=== PATIENT | female | born 1985 | race Caucasian/White ===

== ENCOUNTER 2025-02-05 19:45 | Emergency (ER) | payer MEDICAID, SELFPAY ==
[2025-02-05 19:45] VITALS: BP 144/91; PULSE 68; RESP 15; TEMP 36.1; O2SAT 99; BMI 35.2
--- NOTE | 2025-02-05 19:54 | EDS_ITS ---
HPI History of Present Illness Chief Complaint: Lower Extremity Injury PFSH PFSH Medical History no medical history Home Medications ?Medication ?Instructions ?Recorded ?Last Taken ?Type oxycodone-acetaminophen 5 mg-325 1 - 2 tab PO Q4H PRN PRN Pain #20 04/27/14 Unknown Rx mg tablet tabs tramadol 50 mg tablet 50 mg PO Q6H PRN PRN Pain Unknown History hydrocodone-acetaminophen 5-325mg 1 - 2 tab PO Q4H PRN PRN Pain ##12 10/18/15 Unknown Rx 5mg-325mg Allergy/AdvReac Type Severity Reaction Status Date / Time No Known Allergies Allergy Verified 02/05/25 19:45 Family History no significant family his Surgical History no surgical history Social History Smoking Status: Former smoker EXAM Physical Exam Const Vital Signs: 02/05/25 19:45 Temperature 97 F L Temperature Source Temporal Pulse Rate 68 Respiratory Rate 15 Blood Pressure 144/91 H Blood Pressure Mean 108 Pulse Ox 99 Oxygen Delivery Method Room Air [facility] [place] Narr[place] Medical decision making narrative: HISTORY OF PRESENT ILLNESS: Chief complaint: Left foot injury 39-year-old female presents after left foot pain after dropping a standstill cup of water on her left foot REVIEW OF SYSTEMS: Pertinent positives: Left foot pain Pertinent negatives: Loss of sensation PHYSICAL EXAM: Nursing triage notes reviewed, Vital signs reviewed Constitutional: please see mdm Extremities: No edema, compartments are soft Neuro: Intact sensation L1-S1 dermatomal distributions. Intact 5/5 strength in hip flexion (T12-L3). Knee extension (L2-L4). Ankle dorsiflexion (L4-L5). Ankle plantar flexion (S1). Great toe extension (L5). 2+ patellar and Achilles DTRs. Skin: redness over the base of the first metatarsal MEDICAL DECISION MAKING: Chief Complaint: please see HPI MDM Narrative: The patient was initially hemodynamically stable, afebrile and nontoxic- appearing. Exam with TTP over the base of the first metatarsal I considered the following differential diagnosis: Foot contusion, fracture dislocation I obtained an x-ray to further determine if the patient was suffering from a life-threatening etiology. Gave ice for initial therapy ALL IMAGES (IF OBTAINED) HAVE BEEN PERSONALLY REVIEWED AND INTERPRETED BY MYSELF. X-ray was read and reviewed personally myself show no evidence of obvious bony injury. The patient likely suffered from a contusion. The patient and/or family, caregivers express understanding. The patient and/or family, caregivers agrees with the plan. Shared decision making: I will have a discussion with the patient and or visitors regarding risk/benefits of further testing or admission. They will be made aware of of the risk/benefits inherent in this decision they will be given the opportunity to voice understanding. Total critical care time today provided was at least 0 minutes. This excludes separately billable procedures. Critical care time (if documented) is secondary to the patient having high probability of clinically significant/life threatening deterioration in the patient's condition which required my urgent intervention. Impression: 1. Acute left foot pain 2. Foot contusion Dispo: Discharge home This note was generated with [employer] dictation software. It may contain incorrect words, spelling, and punctuation that were not noted in review of the chart prior to signing. Discharge Plan Triage Chief Complaint: Lower Extremity Injury ED Provider: Buddy Diop Dx/Rx/DC Orders Prescriptions: No Action tramadol 50 MG tablet 50 mg PO Q6H PRN PRN (Reason: Pain) Patient Comments: TAKE 1 TABLET BY MOUTH EVERY 6 HOURS NEEDED oxycodone-acetaminophen 1 TABLET tablet 1 - 2 tab PO Q4H PRN PRN (Reason: Pain) Qty: 20 0RF hydrocodone-acetaminophen 1 TABLET tablet 1 - 2 tab PO Q4H PRN PRN (Reason: Pain) Qty: 12 0RF Primary Care Provider: Kimi Wilson Referrals: Kimi Wilson MD [Primary Care Provider] - Print Language: Taiwanese
--- OUTSIDE RECORDS SUMMARY | 2025-02-05 20:08 | XMS RPT_ITS | CCD ---
Author Organization [facility] Team Providers Care Welfare Director Name Role Phone KAPRALY, ISAURA E Unavailable Unavailable KAPRALY, ISAURA E Unavailable Unavailable KAPRALY, ISAURA E Unavailable Unavailable KAPRALY, ISAURA E Unavailable Unavailable LISSETTE OROZCO Unavailable Unavailable KAPRALY, ISAURA E Unavailable Unavailable KAPRALY, ISAURA E Unavailable Unavailable HAZEY, ARNALDO W Unavailable Unavailable KAPRALY, ISAURA E Unavailable Unavailable HAZEY, ARNALDO W Unavailable Unavailable HAZEY, ARNALDO W Unavailable Unavailable KAPRALY, ISAURA E Unavailable Unavailable KAPRALY, ISAURA E Unavailable Unavailable KAPRALY, ISAURA E Unavailable Unavailable JAVAN NICK Unavailable Unavailable HAZEY, ARNALDO W Unavailable Unavailable Unavailable Primary Care Provider Unavailabl e Unavailable Primary Care Provider Unavailabl e Unavailable Primary Care Provider Unavailabl e Unavailable Primary Care Provider Unavailabl e Camryn PELAEZ Attending Unavailable Camryn PELAEZ Referring Unavailable HAYDE BAZAN Attending Unavailable HAYDE BAZAN Referring Unavailable Medications Current Medications Medication Drug Class(es) Dates Sig (Normalized) Sig (Original) [id number] 200 actuat albuterol 0.09 mg/actuat metered dose inhaler (8 sources) beta2-Adrenergic Agonist Start: 02-22-2022 take 2 puff(s) by inhalation every four hours as needed albuterol HFA (PROAIR HFA) 90 mcg/actuation inhaler Indications: SOB (shortness of breath) Inhale 2 Puffs as instructed every 4 hours as needed. 18 g 02/22/2022 Active Comment on above: Inhale 2 Puffs as in structed every 4 hours as needed. amoxicillin 875 mg oral tablet (1 source) Penicillin-class Antibacterial Start: 08-17-2023 End: 08-24-2023 take 1 tablet by mouth twice daily amoxicillin (AMOXIL) 875 mg tablet Take 1 tablet by mouth two times a day for 7 days. 14 tablet 0 08/17/2023 08/24/2023 Active Comment on above: Take 1 tablet by darron th two times a day for 7 days. amoxicillin 875 mg / clavulanate 125 mg oral tablet (7 sources) Penicillin-class Antibacterial Start: 06-15-2024 End: 06-22-2024 take 1 tablet by mouth twice daily amoxicillin-clavu lanate (Augmentin) 875-125 MG tablet Take 1 tablet by mouth 2 times daily for 7 days. 14 tablet 06/15/2024 06/22/2024 Active Start: 06-15-2024 End: 06-15-2024 take 1 tablet by mouth once 1 tablet (875 mg), Oral, O nce, On Tue06/15/24 at 1335, For 1 dose, Suspected Indication (Select all that apply): Intra-Abdominal Infection Start: 11-16-2023 End: 11-21-2023 take 1 tablet by mouth twice daily amoxicillin-clavulanate potassium (AUGMENTIN) 875-125 mg per tablet Take 1 tablet by mouth two times a day for 5 days. 10 tablet 0 11/16/2023 11/21/2023 Active benzonatate 100 mg oral capsule (1 source) Non-narcotic Antitussive Start: 10-18-2024 End: 10-25-2024 take 1 capsule by mouth three times daily as needed for cough benzonatate (TESSALON PERLE) 100 mg capsule Indications: Acute cough Take 1 capsule by mouth three times a day as needed for cough for up to 7 days. 21 capsule 10/18/2024 10/25/2024 Active ciprofloxacin 3 mg/ml ophthalmic solution (8 sources) Quinolone Antimicrobial Start: 08-24-2022 take 1 drop(s) into the eye(s) four times daily ciprofloxacin HCl (CILOXAN) 0.3 % ophthalmic solution Indications: Bacterial conjunctivitis Use 1 Drop in the left eye four times daily. 5 mL 08/24/2022 Active Start: 08-24-2022 End: 08-24-2022 take 1 drop(s) into the eye(s) four times daily ciprofloxacin HCl (CILOXAN) 0.3 % ophthalmic solution Indications: Bacterial conjunctivitis Use 1 Drop in the left eye four times daily. 5 mL 0 08/24/2022 Active Comment on above: Use 1 Drop in the le ft eye four times daily. mupirocin 0.02 mg/mg topical ointment (1 source) RNA Synthetase Inhibitor Antibacterial Start: 11-16-2023 End: 11-21-2023 mupirocin (BACTROBAN) 2 % ointment Apply to affected area three times a day for 5 days. 30 g 0 11/16/2023 11/21/2023 Active ofloxacin 3 mg/ml otic solution (4 sources) Quinolone Antimicrobial Start: 10-07-2023 ofloxacin (FLOXIN) 0.3 % otic solution Indications: Acute otitis externa of both ears, unspecified type Use 5 Drops in both ears once daily. 10 mL 10/07/2023 Active Comment on above: Use 5 Drops in both ears once daily. predniSONE 10 mg oral tablet (2 sources) Start: 10-18-2024 End: 10-27-2024 predniSONE (DELTASONE) 10 mg tablet Indications: Acute cough Take 4 tabs daily for 3 days, then 2 tabs daily for 3 days, then 1 tab daily for 3 days with food. 21 tablet 10/18/2024 10/27/2024 Active Start: 02-22-2022 End: 02-27-2022 take 5 tablets by mouth once daily, then take 4 tablets by mouth once daily, then take 3 tablets by mouth once daily, then take 2 tablets by mouth once daily, then take 1 tablet by mouth once daily predniSONE (DELTASONE) 10 mg tablet Indications: SOB (shortness of breath) Take 5 tablets by mouth once daily for 1 day, THEN 4 tablets once daily for 1 day, THEN 3 tablets once daily for 1 day, THEN 2 tablets once daily for 1 day, THEN 1 tablet once daily for 1 day. 15 tablet 0 02/22/2022 02/27/2022 Active Comment on above: Take 5 tablets by [facility] once daily for 1 day, THEN 4 tablets once daily for 1 day, THEN 3 tablets once daily for 1 day, THEN 2 tablets once daily for 1 day, THEN 1 tablet once daily for 1 day. Completed/Discontinued Medications Medication Drug Class(es) Dates Sig (Normalized) Sig (Original) 1 ml ketorolac tromethamine 15 mg/ml cartridge (2 sources) Nonsteroidal Anti-inflammatory Drug, Cyclooxygenase Inhibitor Start: 06-15-2024 End: 06-15-2024 15 mg, IntraVENous, Once, On Tue06/15/24 at 1300, For 1 dose Problems Active Problems Problem Classification Problem Date Documented Date Episodic/Chronic Diverticulosis and diverticulitis (4 sources) Diverticulitis of sigmoid colon; Translations: [Diverticulitis of large intestine without perforation or abscess without bleeding] Onset: 06-15-2024 06-15-2024 Chronic Inflammation; infection of eye (except that caused by tuberculosis or sexually transmitteddisease) (1 source) Bacterial conjunctivitis; Translations: [Unspecified conjunctivitis] Episodic Other lower respiratory disease (2 sources) Cough; Translations: [Acute cough] 10-18-2024 Episodic Other nutritional; endocrine; and metabolic disorders (8 sources) Obesity; Translations: [Obesity, unspecified] Onset: 11-05-2014 11-05-2014 Chronic Other upper respiratory infections (4 sources) Acute upper respiratory infection; Translations: [Acute upper respiratory infection, unspecified] Onset: 10-18-2024 08-17-2023 Episodic Otitis media and related conditions (1 source) Acute right otitis media; Translations: [Otitis media, unspecified, right ear] 08-17-2023 Episodic Skin and subcutaneous tissue infections (1 source) Paronychia of finger of right hand; Translations: [Cellulitis of right finger] 11-16-2023 Episodic Substance-related disorders (8 sources) Tobacco user; Translations: [Nicotine dependence, unspecified, uncomplicated] Onset: 09-06-2011 09-06-2011 Chronic Unclassified (2 sources) CALCU GB W/O CHOLECYST W/O OBST / K80.20(ICD-10) Onset: 05-30-2017 Unclassified (1 source) CALCU GB W/CHRON CHOLECYST W/O OBST / K80.10(ICD-10) Onset: 06-02-2017 Unclassified (2 sources) RIGHT UPPER QUADRANT PAIN / R10.11(ICD-10) Onset: 05-06-2017 Unclassified (1 source) Acute cough; Translations: [Acute cough] Onset: 10-18-2024 Past or Other Problems Problem Classification Problem Date Documented Date Episodic/Chronic Abdominal pain (1 source) Right upper quadrant pain; Translations: [RIGHT UPPER QUADRANT PAIN] Onset: 05-05-2017 Episodic Cardiac dysrhythmias (8 sources) Palpitations; Translations: [Palpitations] Onset: 09-29-2011 09-29-2011 Episodic Other ear and sense organ disorders (1 source) Acute otitis externa of bilateral ears; Translations: [Unspecified acute noninfective otitis externa, bilateral] 10-07-2023 Episodic Residual codes; unclassified (8 sources) FH: Cardiovascular disease; Translations: [Family history of ischemic heart disease and other diseases of the circulatory system] Onset: 09-06-2011 09-06-2011 Episodic Unclassified (1 source) CALCU GB W/O CHOLECYST W/O OBST; Translations: [CALCU GB W/O CHOLECYST W/O OBST] Onset: 05-30-2017 Results Test Name Value Interpretation Reference Range Facility [facility] 10-18-2024 CN Office Visit (UCWSTR ) HUSSEIN LEE ([id number]) 1985 F Date Time Provider Department 10/18/24 3:45 PM HAYDE BAZAN [facility] During your visit today, we recorded the following information about you: Temperature Pulse Respiration Blood pressure 98.2 degrees 70/minute 18/minute 148/89 Weight 78.8 kg Hayde Bazan, VALERIA.[facility] 10/18/2024 4:37 PM Signed [facility] Subjective Hussein Lee is a 39 year old female. Patient presents with: Cough: Chest congestion, R side chest discomfort with cough, bilateral ear pain x3 days Patient came in with complaints of 3 days worth of congestion cough. Patient says she does have some shortness of breath when walking. Denies any chest pain or other symptoms. The history is provided by the patient. No linen room attendant was used. Cough Associated symptoms include shortness of breath. Review of Systems Constitutional: Negative. HENT: Positive for congestion. Respiratory: Positive for cough and shortness of breath. Objective BP 148/89 Pulse 70 Temp 36.8 ?C (98.2 ?F) Resp 18 Wt 78.8 kg (173 lb 11.6 oz) LMP 03/04/2020 SpO2 100% BMI 35.09 kg/m? Physical Exam Constitutional: Appearance: Normal appearance. HENT: Right Ear: Tympanic membrane, ear canal and external ear normal. Left Ear: Tympanic membrane, ear canal and external ear normal. Mouth/Throat: Mouth: Mucous membranes are moist. Pharynx: Oropharynx is clear. Eyes: Pupils: Pupils are equal, round, and reactive to light. Cardiovascular: Rate and Rhythm: Normal rate and regular rhythm. Heart sounds: Normal heart sounds. Pulmonary: Effort: Pulmonary effort is normal. Breath sounds: Normal breath sounds. Neurological: Mental Status: She is alert. PAST MEDICAL HISTORY Diagnosis Date Childhood asthma (HCC) Noted history of childhood asthma History of smoking PAST SURGICAL HISTORY Procedure Laterality Date TONSILLECTOMY PRIMARY/SECONDARY age 7 years TYMPANOSTOMY LOCAL/TOPICAL ANESTHESIA age 7 ALLERGIES Patient has no known allergies. MEDICATIONS ofloxacin (FLOXIN) 0.3 % otic solution Use 5 Drops in both ears once daily. (Patient not taking: Reported on 11/16/2023) ciprofloxacin HCl (CILOXAN) 0.3 % ophthalmic solution Use 1 Drop in the left eye four times daily. (Patient not taking: Reported on 08/17/2023) albuterol HFA (PROAIR HFA) 90 mcg/actuation inhaler Inhale 2 Puffs as instructed every 4 hours as needed. (Patient not taking: Reported on 08/17/2023) FAMILY HISTORY Problem Relation Age of Onset Cancer Mother from cervical cancer with mets liver? Heart Mother Heart Paternal Grandfather Cancer Maternal Grandmother Asthma Brother Social History Tobacco Use Smoking status: Former Types: Cigarettes Smokeless tobacco: Never Tobacco comments: smokes 1 pack a week; has set a quite date for January 29 2012 (noted smokes) Vaping Use Vaping status: Never Used Substance Use Topics Alcohol use: Yes Comment: socially {ASSESSMENT/PLAN: 1. Acute cough - ICD9: 786.2, ICD10: R05.1 (primary diagnosis) - XR CHEST 2V FRONTAL/LAT - neg - PREDNISONE 10 MG TABLET - BENZONATATE 100 MG CAPSULE 2. URI, acute - ICD9: 465.9, ICD10: J06.9 - Discussed viral etiology and rationale for treatment. - Symptomatic treatment with prn analgesia - Supportive care with fluids and rest Hayde Bazan APRN.[employer] History and Record Review External record(s) reviewed: no prior records. Disposition The patient was discharged. Procedures Allergies As of Date: 10/18/2024 (No Known Allergies) Date Reviewed: 10/18/2024 Reviewed by: Milagro Turner MA - Fully Assessed Reason for Visit: Cough [28] Cmt: Chest congestion, R side chest discomfort with cough, bilateral ear pain x3 days Primary Visit Diagnosis:Acute cough [R05.1] Other Visit Diagnosis:URI, acute [J06.9] Order(s):XR CHEST 2V FRONTAL/LAT [[id number]] Order #: [id number] FUTURE predniSONE (DELTASONE) 10 mg tabletTake 4 tabs daily for 3 days, then 2 tabs daily for 3 days, then 1 tab daily for 3 days with food.Disp: 21 tabletRfl: 0 benzonatate (TESSALON PERLE) 100 mg capsuleTake 1 capsule by mouth three times a day as needed for cough for up to 7 days.Disp: 21 capsuleRfl: 0 Prescriptions as of 10/18/2024 - predniSONE (DELTASONE) 10 mg tablet Take 4 tabs daily for 3 days, then 2 tabs daily for 3 days, then 1 tab daily for 3 days with food. - benzonatate (TESSALON PERLE) 100 mg capsule Take 1 capsule by mouth three times a day as needed for cough for up to 7 days. - ofloxacin (FLOXIN) 0.3 % otic solution Use 5 Drops in both ears once daily. - ciprofloxacin HCl (CILOXAN) 0.3 % ophthalmic solution Use 1 Drop in the left eye four times daily. - albuterol HFA (PROAIR HFA) 90 mcg/actuation inhaler Inhale 2 Puffs as instructed every 4 hours as neede (more content not included)... Normal [facility] XR CHEST 2V FRONTAL/LATon XR CHEST 2V FRONTAL/LAT * * *Final Report* * * DATE OF EXAM: Oct 18 2024 4:22PM WOX [id number] - XR CHEST 2V FRONTAL/LAT / PROCEDURE REASON: Acute cough * * * * Physician Interpretation * * * * EXAMINATION: CHEST RADIOGRAPH (2 VIEW FRONTAL and LATERAL) CLINICAL HISTORY: Acute cough MQ: XC2_6 EXAM DATE/TIME: 10/18/2024 4:22 PM COMPARISON: No relevant prior studies available. RESULT: Lines, tubes, and devices: None. Lungs and pleura: No consolidation. No lung mass. No pleural effusion. No pneumothorax. Cardiomediastinal silhouette: Normal cardiomediastinal silhouette. Bones and soft tissues: Unremarkable. IMPRESSION: No acute radiographic abnormality. [employer]: [facility] Transcribe Date/Time: Oct 18 2024 4:24P Dictated by : GERMAINE KAY MD This examination was interpreted and the report reviewed and electronically signed by: GERMAINE KAY MD on Oct 18 2024 4:25PM EST [id number] Normal [facility] XR Chest PA and Lateralon IMPRESSION: No acute radiographic abnormality. [employer]: [facility] Transcribe Date/Time: Oct 18 2024 4:24P Dictated by : GERMAINE KAY MD This examination was interpreted and the report reviewed and electronically signed by: GERMAINE KAY MD on Oct 18 2024 4:25PM EST DIVISION OF RADIOLOGY * * *Final Report* * * DATE OF EXAM: Oct 18 2024 4:22PM WOX [id number] - XR CHEST 2V FRONTAL/LAT / PROCEDURE REASON: Acute cough * * * * Physician Interpretation * * * * EXAMINATION: CHEST RADIOGRAPH (2 VIEW FRONTAL & LATERAL) CLINICAL HISTORY: Acute cough MQ: XC2_6 EXAM DATE/TIME: 10/18/2024 4:22 PM COMPARISON: No relevant prior studies available. RESULT: Lines, tubes, and devices: None. Lungs and pleura: No consolidation. No lung mass. No pleural effusion. No pneumothorax. Cardiomediastinal silhouette: Normal cardiomediastinal silhouette. Bones and soft tissues: Unremarkable. DIVISION OF RADIOLOGY Provider, [facility] - 10/18/2024 * * *Final Report* * * DATE OF EXAM: Oct 18 2024 4:22PM WOX 5291 - XR CHEST 2V FRONTAL/LAT / PROCEDURE REASON: Acute cough * * * * Physician Interpretation * * * * EXAMINATION: CHEST RADIOGRAPH (2 VIEW FRONTAL & LATERAL) CLINICAL HISTORY: Acute cough MQ: XC2_6 EXAM DATE/TIME: 10/18/2024 4:22 PM COMPARISON: No relevant prior studies available. RESULT: Lines, tubes, and devices: None. Lungs and pleura: No consolidation. No lung mass. No pleural effusion. No pneumothorax. Cardiomediastinal silhouette: Normal cardiomediastinal silhouette. Bones and soft tissues: Unremarkable. IMPRESSION IMPRESSION: No acute radiographic abnormality. [employer]: [facility] Transcribe Date/Time: Oct 18 2024 4:24P Dictated by : GERMAINE KAY MD This examination was interpreted and the report reviewed and electronically signed by: GERMAINE KAY MD on Oct 18 2024 4:25PM EST [facility] Radiology Study observation (narrative) [facility] XR Chest PA and LateralOrder ed By: [facility] Provider on 10-18-2024 [facility] CBC W Auto Differential pane l (Bld)on 06-15-2024 Basophils (Bld) [#/Vol] 0 10*3/uL 0.0 - 0.2 10*3/uL [facility] Basophils/100 WBC (Bld) 0.2 % 0.0 - 2.0 % [facility] Eosinophils (Bld) [#/Vol] 0.1 10*3/uL 0.0 - 0.5 10*3/uL [facility] Eosinophils/100 WBC (Bld) 0.5 % 0.0 - 6.0 % [facility] Erythrocyte distribution width (RBC) [Ratio] 13.2 % 11.5 - 15.0 % [facility] Hematocrit (Bld) [Volume fraction] 36.7 % 35.0 - 47.0 % [facility] Hemoglobin (Bld) [Mass/Vol] 13.5 g/dL 11.7 - 16.0 g/dL [facility] Immature granulocytes (Bld) [#/Vol] 0.1 10*3/uL High NINF - 0.1 10*3/uL [facility] Immature granulocytes/100 WBC (Bld) 0.5 % 0.0 - 2.0 % [facility] Interpretation and review of laboratory results Abnormal [facility] Lymphocytes (Bld) [#/Vol] 2.4 10*3/uL 1.0 - 4.3 10*3/uL [facility] Lymphocytes/100 WBC (Bld) 14.3 % Low 15.0 - 45.0 % [facility] MCH (RBC) [Entitic mass] 31.8 pg 26.0 - 34.0 pg [facility] MCHC (RBC) [Mass/Vol] 36.8 % High 30.5 - 36.0 % [facility] MCV (RBC) [Entitic vol] 86.6 fL 77.0 - 99.0 fL [facility] Monocytes (Bld) [#/Vol] 1.1 10*3/uL High 0.0 - 0.9 10*3/uL [facility] Monocytes/100 WBC (Bld) 6.2 % 5.0 - 13.0 % [facility] Neutrophils (Bld) [#/Vol] 13.3 10*3/uL High 1.8 - 7.5 10*3/uL [facility] Neutrophils/100 WBC (Bld) 78.3 % 38.0 - 82.0 % [facility] Nucleated RBC/100 WBC (Bld) [Ratio] 0 % [facility] Platelet mean volume (Bld) [Entitic vol] 10.4 fL 9.0 - 12.7 fL [facility] Comment on above: MPV is a calculated measurement using platelet volume ratio Platelets (Bld) [#/Vol] 301 10*3/uL 140 - 440 10*3/uL [facility] RBC (Bld) [#/Vol] 4.24 10*6/uL 3.80 - 5.2 0 10*6/uL [facility] WBC (Bld) [#/Vol] 17 10*3/uL High 3.6 - 10.7 10*3/uL [facility] CBC WITH AUTO DIFFERENTIALon 06-15-2024 Basophils (Bld) [#/Vol] 0.0 10*3/uL Normal 0.0-0.2 [facility] Comment on above: Performed By: #### L [id number] #### Process Engineer: GERRI ANAND ([id number]) [facility] [address] [place] [address] Basophils/100 WBC (Bld) 0.2 % Normal 0.0-2.0 [facility] Comment on above: Performed By: #### L [id number] #### Process Engineer: GERRI ANAND ([id number]) [facility]) [address] [place] [address] Eosinophils (Bld) [#/Vol] 0.1 10*3/uL Normal 0.0-0.5 [facility] Comment on above: Performed By: #### L [id number] #### Process Engineer: GERRI ANAND ([id number]) [facility] [address] [place] [address] Eosinophils/100 WBC (Bld) 0.5 % Normal 0.0-6.0 [facility] Comment on above: Performed By: #### L [id number] #### Process Engineer: GERRI ANAND ([id number]) [facility] [address] [place] [address] Erythrocyte distribution width (RBC) [Ratio] 13.2 % Normal 11.5-15.0 [facility] Comment on above: Performed By: #### L [id number] #### Process Engineer: GERRI ANAND ([id number]) [facility] [address] [place] [address] Hematocrit (Bld) [Volume fraction] 36.7 % Normal 35.0-47.0 [facility] Comment on above: Performed By: #### L [id number] #### Process Engineer: GERRI ANAND ([id number]) [facility] [address] [place] [address] Hemoglobin (Bld) [Mass/Vol] 13.5 g/dL Normal 11.7-16.0 [facility] Comment on above: Performed By: #### L [id number] #### Process Engineer: GERRI ANAND ([id number]) [facility] [address] IMMATURE GRANS % 0.5 % Normal 0.0-2.0 [facility] Comment on above: Performed By: #### L [id number] #### Process Engineer: GERRI ANAND ([id number]) [facility] [address] [place] [address] IMMATURE GRANS ABSOLUTE 0.1 10*3/uL High <0.1 [facility] Comment on above: Performed By: #### L [id number] #### Process Engineer: GERRI ANAND ([id number]) [facility] [address] [place] [address] Lymphocytes (Bld) [#/Vol] 2.4 10*3/uL Normal 1.0-4.3 [facility] Comment on above: Performed By: #### L [id number] #### Process Engineer: GERRI ANAND ([id number]) [facility] [address] [place] [address] Lymphocytes/100 WBC (Bld) 14.3 % Low 15.0-45.0 [facility] Comment on above: Performed By: #### L [id number] #### Process Engineer: GERRI ANAND ([id number]) [facility] [address] [place] [address] MCH (RBC) [Entitic mass] 31.8 pg Normal 26.0-34.0 [facility] Comment on above: Performed By: #### L [id number] #### Process Engineer: GERRI ANAND ([id number]) [facility] [address] [place] [address] MCHC 36.8 % High 30.5-36.0 [facility] Comment on above: Performed By: #### L [id number] #### Process Engineer: GERRI ANAND ([id number]) [facility] [address] [place] [address] [place] MCV (RBC) [Entitic vol] 86.6 fL Normal 77.0-99.0 [facility] Comment on above: Performed By: #### L [id number] #### Process Engineer: GERRI ANAND ([id number]) [facility] [address] [place] [address] [place] Monocytes (Bld) [#/Vol] 1.1 10*3/uL High 0.0-0.9 [facility] Comment on above: Performed By: #### L [id number] #### Process Engineer: GERRI ANAND ([id number]) [facility] [address] [place] [address] [place] Monocytes/100 WBC (Bld) 6.2 % Normal 5.0-13.0 [facility] Comment on above: Performed By: #### L [id number] #### Process Engineer: GERRI ANAND ([id number]) [facility] [address] [place] [address] [place] NEUTROPHILS ABSOLUTE 13.3 10*3/uL High 1.8-7.[address] [facility] Comment on above: Performed By: #### L [id number] #### Process Engineer: GERRI ANAND ([id number]) [facility] [address] [place] [address] [place] Neutrophils/100 WBC (Bld) 78.3 % Normal 38.0-82.0 [facility] Comment on above: Performed By: #### L [id number] #### Process Engineer: GERRI ANAND ([id number]) [facility]) [address] [place] [address] [place] NRBC 0.0 /100 WBCs Normal 0.0-2.0 [facility] Comment on above: Performed By: #### L [id number] #### Process Engineer: GERRI ANAND ([id number]) [facility] [address] [place] [address] Platelet mean volume (Bld) [Entitic vol] 10.4 fL Normal 9.0-12.7 [facility] Comment on above: Result Comment: MPV is a calculated measurement using platelet volume ratio Performed By: #### L [id number] #### Process Engineer: GERRI ANAND ([id number]) [facility] [address] [place] [address] Platelets (Bld) [#/Vol] 301 10*3/uL Normal 140-440 [facility] Comment on above: Performed By: #### L [id number] #### Process Engineer: GERRI ANAND ([id number]) [facility] [address] [place] [address] RBC (Bld) [#/Vol] 4.24 10*6/uL Normal 3.80-5.20 [facility] Comment on above: Performed By: #### L [id number] #### Process Engineer: GERRI ANAND ([id number]) [facility] [address] [place] [address] WBC (Bld) [#/Vol] 17.0 10*3/uL High 3.6-10.7 [facility] Comment on above: Performed By: #### L [id number] #### Process Engineer: GERRI ANAND ([id number]) [facility] [address] [place] [address] COMPLETE URINALYSISon 2023 BACTERIA (#/HPF) IN URINE Few Abnormal Negative [facility] Comment on above: Performed By: #### L [id number] #### Process Engineer: GERRI ANAND ([id number]) [facility] [address] [place] [address] BILIRUBIN, TOTAL PRESENCE IN URINE Negative Normal Negative [facility] Comment on above: Performed By: #### L [id number] #### Process Engineer: GERRI ANAND ([id number]) [facility]) [address] [place] [address] Clarity (U) Clear Normal Clear [facility] Comment on above: Performed By: #### L [id number] #### Process Engineer: GERRI ANAND ([id number]) [facility]) [address] [place] [address] Color (U) Yellow Normal Lt. Yellow [facility] Comment on above: Performed By: #### L [id number] #### Process Engineer: GERRI ANAND ([id number]) [facility]) [address] [place] [address] [place] GLUCOSE (MG/DL) IN URINE Normal Normal Normal (<70) [facility] Comment on above: Performed By: #### L [id number] #### Process Engineer: GERRI ANAND ([id number]) [facility] [address] [place] [address] HEMOGLOBIN PRESENCE IN URINE Negative Normal Negative [facility] Comment on above: Performed By: #### L [id number] #### Process Engineer: GERRI ANAND ([id number]) [facility]) [address] [place] [address] Ketones Ql (U) 60 mg/dL Abnormal Negative [facility] Comment on above: Performed By: #### L [id number] #### Process Engineer: GERRI ANAND ([id number]) [facility] [address] [place] [address] LEUKOCYTE ESTERASE PRESENCE IN URINE BY TEST STRIP Negative Normal Negative [facility] Comment on above: Performed By: #### L [id number] #### Process Engineer: GERRI ANAND ([id number]) [facility]) [address] [place] [address] [place] NITRITE PRESENCE IN URINE Negative Normal Negative [facility] Comment on above: Performed By: #### L [id number] #### Process Engineer: GERRI ANAND ([id number]) [facility] [address] [place] [address] pH (U) 6.0 [pH] Normal 5.0-8.0 [facility] Comment on above: Performed By: #### L [id number] #### Process Engineer: GERRI ANAND ([id number]) [facility] [address] [place] [address] Protein (U) [Mass/Vol] 20 mg/dL Abnormal Negative [facility] Comment on above: Performed By: #### L [id number] #### Process Engineer: GERRI ANAND ([id number]) [facility]) [address] [place] [address] [place] RBC (#/HPF) IN URINE SEDIMENT Negative Normal 0-2 [facility] Comment on above: Performed By: #### L [id number] #### Process Engineer: GERRI ANAND ([id number]) [facility]) [address] [place] [address] Specific gravity (U) [Rel density] 1.039 High 1.005-1.030 [facility] Comment on above: Performed By: #### L [id number] #### Process Engineer: GERRI ANAND ([id number]) [facility]) [address] [place] [address] [place] SQUAMOUS EPITHELIAL CELLS (#/HPF) IN URINE SEDIMENT 3-5 Normal 3-5 [facility] Comment on above: Performed By: #### L [id number] #### Process Engineer: GERRI ANAND ([id number]) [facility]) [address] [place] [address] [place] UROBILINOGEN (MG/DL) IN URINE 2 mg/dL Abnormal Normal (0-1) [facility] Comment on above: Performed By: #### L [id number] #### Process Engineer: GERRI ANAND ([id number]) [facility]) [address] [place] [address] VOLUME OF URINE 8-12 mL Normal [facility] Comment on above: Performed By: #### L [id number] #### Process Engineer: GERRI ANAND ([id number]) [facility]) [address] [place] [address] WBC (LEUKOCYTE) (#/HPF) IN URINE SEDIMENT 0-2 Normal 0-5 [facility] Comment on above: Performed By: #### L [id number] #### Process Engineer: GERRI ANAND ([id number]) [facility]) [address] [place] [address] COMPREHENSIVE METABOLIC PANE Harsh 06-15-2024 Albumin [Mass/Vol] 3.4 g/dL Low 3.5-5.0 [facility] Comment on above: Performed By: #### Iggy DEVRIES, LAB17 #### Process Engineer: GERRI ANAND ([id number]) [facility]) [address] [place] [address] ALP [Catalytic activity/Vol] 49 U/L Normal 40-150 [facility] Comment on above: Performed By: #### L AB99, LAB17 #### Process Engineer: GERRI ANAND ([id number]) [facility]DA [facility] ([facility]) [address] [place] [address] [place] ALT [Catalytic activity/Vol] 14 U/L Normal <30 [facility] Comment on above: Performed By: #### L AB99, LAB17 #### Process Engineer: GERRI ANAND ([id number]) [facility] ([facility]) [address] [place] [address] [place] Anion gap [Moles/Vol] 5 mmol/L Normal 3-13 [facility] Comment on above: Performed By: #### L KAYCE, LAB17 #### Process Engineer: GERRI ANAND ([id number]) [facility] ([facility]) [address] AST [Catalytic activity/Vol] 25 U/L Normal <34 [facility] Comment on above: Performed By: #### L KAYCE, LAB17 #### Process Engineer: GERRI ANAND ([id number]) [facility]) [address] Bilirubin [Mass/Vol] 0.7 mg/dL Normal <1.2 [facility] Comment on above: Performed By: #### Iggy DEVRIES, LAB17 #### Process Engineer: GERRI ANAND ([id number]) [facility]) [address] [place] [address] Calcium [Mass/Vol] 8.9 mg/dL Normal 8.4-10.2 [facility] Comment on above: Performed By: #### Iggy DEVRIES, LAB17 #### Process Engineer: GERRI ANAND ([id number]) [facility]) [address] [place] [address] [place] Chloride [Moles/Vol] 110 mmol/L High 98-107 [facility] Comment on above: Performed By: #### L 99, LAB17 #### Process Engineer: GERRI ANAND ([id number]) [facility]) [address] [place] [address] [place] CO2 [Moles/Vol] 23 mmol/L Normal 22-29 [facility] Comment on above: Performed By: #### L AB99, LAB17 #### Process Engineer: GERRI ANAND ([id number]) [facility]) [address] [place] [address] [place] Creatinine [Mass/Vol] 0.76 mg/dL Normal 0.57-1.11 [facility] Comment on above: Performed By: #### Iggy DEVRIES, LAB17 #### Process Engineer: GERRI ANAND ([id number]) [facility]) [address] [place] [address] GLOMERULAR FILTRATION RATE ML/MIN/1.73 SQ M.PREDICTED >90.0 Normal >60.0 [facility] Comment on above: Result Comment: Calc ulation based on the Chronic Kidney Disease Epidemiology Collaboration (CKD-EPI) equation refit without adjustment for race Performed By: #### Iggy DEVRIES, LAB17 #### Process Engineer: GERRI ANAND ([id number]) [facility]) [address] [place] [address] Glucose [Mass/Vol] 96 mg/dL Normal 74-100 [facility] Comment on above: Performed By: #### Iggy DEVRIES, LAB17 #### Process Engineer: GERRI ANAND ([id number]) [facility] [address] [place] [address] [place] Potassium [Moles/Vol] 4.2 mmol/L Normal 3.5-5.1 [facility] Comment on above: Result Comment: [facility] potassium values may be up to 0.5 mmol/L lower than serum values. Performed By: #### Iggy DEVRIES, LAB17 #### Process Engineer: GERRI ANAND ([id number]) [facility] ([facility]) [address] [place] [address] [place] Protein [Mass/Vol] 6.7 g/dL Normal 6.4-8.3 [facility] Comment on above: Performed By: #### Iggy DEVRIES, LAB17 #### Process Engineer: GERRI ANAND ([id number]) [facility]) [address] [place] [address] [place] Sodium [Moles/Vol] 138 mmol/L Normal 136-145 [facility] Comment on above: Performed By: #### L AB99, LAB17 #### Process Engineer: GERRI ANAND ([id number]) [facility] ([facility]) [address] [place] [address] Urea nitrogen [Mass/Vol] 18 mg/dL Normal 8-21 [facility] Comment on above: Performed By: #### L AB99, LAB17 #### Process Engineer: GERRI JOYCETIFFANIE ([id number]) [facility] ([facility]) [address] [place] [address] CT ABDOMEN PELVIS WO IV CONT RASTon 06-15-2024 CT ABDOMEN PELVIS WO IV CONTRAST Patient Name: HUSSEIN ALSTON : 1985 Exam Date/Time: 06/15/2024 12:38 Procedure: CT ABDOMEN PELVIS WO IV CONTRAST Ordering Provider: PELAEZ J Reason For Exam: FLANK PAIN CT abdomen and pelvis without contrast History: Flank pain Technique: 3 mm axial images from the lung bases to just below the pubic symphysis without intravenous contrast Dose reduction was employed with automated exposure control. Acute sigmoid diverticulitis. Small amount of free fluid in the pelvis. No evidence of an abscess. No bowel obstruction. The liver, spleen, pancreas, adrenals and kidneys are normal. The bladder is unremarkable. IMPRESSION: Acute sigmoid diverticulitis. Small amount of free fluid in the pelvis. Report Dictated on Electronically Signed By: Alex Quintero MD Electronically Signed Date/Time: 06/15/2024 1:24 PM EST Normal [facility] CT Abdomen and Pelvis WO con traston 06-15-2024 Acute sigmoid diverticulitis. Small amount of free fluid in the pelvis. Report Dictated on Electronically Signed By: Alex Quintero MD Electronically Signed Date/Time: 06/15/2024 1:24 PM [facility] Patient Name: HUSSEIN ALSTON : 1985 Exam Date/Time: 06/15/2024 12:38 Procedure: CT ABDOMEN PELVIS WO IV CONTRAST Ordering Provider: PELAEZ J Reason For Exam: FLANK PAIN CT abdomen and pelvis without contrast History: Flank pain Technique: 3 mm axial images from the lung bases to just below the pubic symphysis without intravenous contrast Dose reduction was employed with automated exposure control. Acute sigmoid diverticulitis. Small amount of free fluid in the pelvis. No evidence of an abscess. No bowel obstruction. The liver, spleen, pancreas, adrenals and kidneys are normal. The bladder is unremarkable. [facility] Alex Quintero MD - 06/15/2024 Patient Name: HUSSEIN ALSTON : 1985 Exam Date/Time: 06/15/2024 12:38 Procedure: CT ABDOMEN PELVIS WO IV CONTRAST Ordering Provider: PELAEZ J Reason For Exam: FLANK PAIN CT abdomen and pelvis without contrast History: Flank pain Technique: 3 mm axial images from the lung bases to just below the pubic symphysis without intravenous contrast Dose reduction was employed with automated exposure control. Acute sigmoid diverticulitis. Small amount of free fluid in the pelvis. No evidence of an abscess. No bowel obstruction. The liver, spleen, pancreas, adrenals and kidneys are normal. The bladder is unremarkable. IMPRESSION: Acute sigmoid diverticulitis. Small amount of free fluid in the pelvis. Report Dictated on Electronically Signed By: Alex Quintero MD Electronically Signed Date/Time: 06/15/2024 1:24 PM EST [facility] Radiology Study observation (narrative) [facility] CT Abdomen and Pelvis WO con trastOrdered By: Alex Quintero on 06-15-2024 [facility] [employer] Work Phone: Comprehensive metabolic 1998 panelon 06-15-2024 Albumin [Mass/Vol] 3.4 g/dL Low 3.5 - 5.0 g/dL [facility] ALP [Catalytic activity/Vol] 49 U/L 40 - 150 U/L [facility] ALT [Catalytic activity/Vol] 14 U/L NINF - 30 U/L [facility] Anion gap [Moles/Vol] 5 mmol/L 3 - 13 mmol/L [facility] AST [Catalytic activity/Vol] 25 U/L NINF - 34 U/L [facility] Bilirubin [Mass/Vol] 0.7 mg/dL NINF - 1.2 mg/dL [facility] Calcium [Mass/Vol] 8.9 mg/dL 8.4 - 10. 2 mg/dL [facility] Chloride [Moles/Vol] 110 mmol/L High 98 - 10 7 mmol/L [facility] CO2 [Moles/Vol] 23 mmol/L 22 - 29 mmol/L [facility] Creatinine [Mass/Vol] 0.76 mg/dL 0.57 - 1.11 mg/dL [facility] GFR/1.73 sq M.predicted (S/P/Bld) [Vol rate/Area] - PINF [facility] Comment on above: Calculation based on the Chronic Kidney Disease Epidemiology Collaboration (CKD-EPI) equation refit without adjustment for race Glucose [Mass/Vol] 96 mg/dL 74 - 100 mg/dL [facility] Interpretation and review of laboratory results Abnormal [facility] Potassium [Moles/Vol] 4.2 mmol/L 3.5 - 5.1 mmol/L [facility] Comment on above: Plasma potassium maximilian ues may be up to 0.5 mmol/L lower than serum values. Protein [Mass/Vol] 6.7 g/dL 6.4 - 8.3 g/dL [facility] Sodium [Moles/Vol] 138 mmol/L 136 - 145 mmol/L [facility] Urea nitrogen [Mass/Vol] 18 mg/dL 8 - 21 mg/dL [facility] ED Provider Noteon ED Provider Note EMERGENCY DEPARTMENT ENCOUNTER Pt Name: Hussein Alston Birthdate 1985 Date of evaluation: 06/15/2024 ED Provider: Bere Pelaez MD CHIEF COMPLAINT Chief Complaint Patient presents with Pelvic Pain Sore Throat Pt tested positive for strep yesterday, has not vomited since yesterday, was started on amoxicillin yesterday HISTORY OF PRESENT ILLNESS (Location/Symptom, Timing/Onset, Context/Setting, Quality, Duration, Modifying Factors, Severity) Note limiting factors. I wore appropriate PPE for the entirety of this encounter. HPI Hussein Alston is a 38 y.o. female who presents to the emergency department with chief complaint of pelvic pain that radiates into her flank pain since last night. She endorses history of kidney stones. She denies any hematuria or dysuria. She denies concerns for STDs and denies any vaginal discharge. Of note, she states that she was diagnosed with strep pharyngitis yesterday and was started on amoxicillin yesterday, but is not at all concerned for her throat. She states that her last menstrual period was a month ago. Nursing Notes were reviewed. Limitations to history: None Outside historians: Friend REVIEW OF SYSTEMS Review of Systems Pertinent positives and negatives as per HPI. PAST MEDICAL HISTORY Past Medical History: Diagnosis Date Kidney stones SURGICAL HISTORY Past Surgical History: Procedure Laterality Date SECTION (HISTORICAL) CHOLECYSTECTOMY CURRENT MEDICATIONS Current Discharge Medication List ALLERGIES Patient has no known allergies. FAMILY HISTORY No family history on file. SOCIAL HISTORY Social History Socioeconomic History Marital status: Single Tobacco Use Smoking status: Former Types: Cigarettes Smokeless tobacco: Never Vaping Use Vaping status: Every Day Substances: Nicotine Substance and Sexual Activity Alcohol use: Yes Comment: socially Drug use: Yes Types: Marijuana Comment: rarely SCREENINGS PHYSICAL EXAM ED Triage Vitals [06/15/24 1138] Temp Heart Rate Resp BP 36.2 ?C (97.1 ?F) 96 18 132/83 SpO2 Temp Source Heart Rate Source Patient Position 100 % Temporal -- Sitting BP Location FiO2 (%) Right arm -- Physical Exam Vitals and nursing note reviewed. Constitutional: General: She is not in acute distress. Appearance: She is well-developed. HENT: Head: Normocephalic and atraumatic. Eyes: Conjunctiva/sclera: Conjunctivae normal. Cardiovascular: Rate and Rhythm: Normal rate and regular rhythm. Heart sounds: No murmur heard. Pulmonary: Effort: Pulmonary effort is normal. No respiratory distress. Breath sounds: Normal breath sounds. Abdominal: Palpations: Abdomen is soft. Tenderness: There is generalized abdominal tenderness. There is left CVA tenderness. Musculoskeletal: General: No swelling. Cervical back: Neck supple. Skin: General: Skin is warm and dry. Capillary Refill: Capillary refill takes less than 2 seconds. Neurological: Mental Status: She is alert. Psychiatric: Mood and Affect: Mood normal. DIAGNOSTIC RESULTS Procedures/EKG: Interpretation per the Radiologist below, if available at the time of this note: CT abdomen pelvis wo IV contrast Final Result Acute sigmoid diverticulitis. Small amount of free fluid in the pelvis. Report Dictated on Electronically Signed By: Alex Quintero MD Electronically Signed Date/Time: 06/15/2024 1:24 PM EST ED BEDSIDE ULTRASOUND: Performed by ED Physician - none LABS: Labs Reviewed CBC WITH AUTO DIFFERENTIAL - Abnormal Result Value Auto WBC 17.0 (*) RBC 4.24 Hemoglobin 13.5 Hematocrit 36.7 MCV 86.6 MCH 31.8 MCHC 36.8 (*) RDW 13.2 Platelets 301 MPV 10.4 nRBC 0.0 Neutrophils Relative 78.3 Lymphocytes Relative 14.3 (*) Monocytes Relative 6.2 Eosinophils Relative 0.5 Basophils Relative 0.2 Immature Grans % 0.5 Neutrophils Absolute 13.3 (*) Lymphocytes Absolute 2.4 Monocytes Absolute 1.1 (*) Eosinophils Absolute 0.1 Basophils Absolute 0.0 Immature Grans Absolute 0.1 (*) COMPREHENSIVE METABOLIC PANEL - Abnormal SODIUM 138 POTASSIUM 4.2 CHLORIDE 110 (*) CARBON DIOXIDE 23 ANION GAP 5 UREA NITROGEN 18 CREATININE 0.76 GLUCOSE 96 CALCIUM 8.9 AST (SGOT) 25 ALT 14 ALKALINE PHOSPHATASE 49 ALBUMIN 3.4 (*) BILIRUBIN, TOTAL 0.7 TOTAL PROTEIN 6.7 eGFR >90.0 COMPLETE URINALYSIS - Abnormal Color, Urine Yellow Clarity, Urine Clear pH, Urine 6.0 Leukocytes, Urine Negative Nitrite, Urine Negative Protein, Urine 20 (*) Glucose, Urine Normal Bilirubin, Urine Negative Ketones, Urine 60 (*) Urobilinogen, Urine 2 (*) Blood, Urine Negative Volume, Urine 8-12 mL RBC, Urine Negative WBC, Urine 0-2 Squamous Epithelial, Urine 3-5 Bacteria, Urine Few (*) SPECIFIC GRAVITY OF URINE (NUMERIC) 1.039 (*) LIPASE - Normal LIPASE 13 COMPLETE URINALYSIS WITH REFLE (more content not included)... Normal [facility] HCG QUALITATIVE URINEon 06-03 Beta HCG ( test) Ql (U) Negative Normal Negative [facility] Comment on above: Result Comment: Plea se note: Very dilute urine specimens, as indicated by a low specific gravity, may not contain customer assistance representative levels of hCG. If is still suspected, a first morning urine specimen should be collected 48 hours later and tested. ORDER COMMENTS: is the most common reason for HCG in urine, although choriocarcinoma, hydatidiform mole, and certain nontrophoblastic malignancies also result in detectable urinary HCG levels. Sensitivity = 20mIU/mL. Performed By: #### L [id number] #### Process Engineer: GERRI ANAND ([id number]) [facility] [employer] ([facility]) [address] [place] [address] LIPASEon 06-15-2024 Lipase [Catalytic activity/Vol] 13 U/L Normal <55 [facility] Comment on above: Performed By: #### L AB99, LAB17 #### Process Engineer: GERRI ANAND ([id number]) [facility] [employer] ([employer]) [address] [place] [address] Laboratory - Chemistry and C hemistry - challengeon 06-15-2024 Lipase [Catalytic activity/Vol] 13 U/L NINF - 55 U/L [facility] Laboratory - Chemistry and C hemistry - challengeOrdered By: Octavia Ledezma on 06-15-2024 Beta HCG ( test) Ql Negative Negative [facility] Comment on above: Please note: Very di lute urine specimens, as indicated by a low specific gravity, may not contain customer assistance representative levels of hCG. If is still suspected, a first morning urine specimen should be collected 48 hours later and tested. Beta HCG ( test) Ql (U) is the most common reason for HCG in urine, although choriocarcinoma, hydatidiform mole, and certain nontrophoblastic malignancies also result in detectable urinary HCG levels. Sensitivity = 20mIU/mL. [facility] Lipase [Catalytic activity/V ol]on 06-15-2024 Interpretation and review of laboratory results Normal [facility] No Panel Informationon 06-15 [facility] No Panel InformationOrdered By: Octavia Ledezma on 06-15-2024 [facility] Urinalysis complete panel (U )on 06-15-2024 Bacteria LM.HPF (Urine sed) [#/Area] Few Abnormal Negative /HPF [facility] Bilirubin Ql (U) Negative Negative mg/dL [facility] Clarity (U) Clear Clear [facility] Color (U) Yellow Lt. Yellow [facility] Epithelial cells.squamous LM.HPF (Urine sed) [#/Area] [facility] Ql (U) Normal Normal (<70) mg/dL [facility] Hemoglobin Ql (U) Negative Negative mg/dL [facility] Interpretation and review of laboratory results Abnormal [facility] Ketones (U) [Mass/Vol] 60 mg/dL Abnormal Negative [facility] Leukocyte esterase Test strip Ql (U) Negative Negative Yessy/uL [facility] Nitrite Ql (U) Negative Negative [facility] th pH (U) 6.0 [pH] 5.0 - 8.0 pH [facility] Protein (U) [Mass/Vol] 20 mg/dL Abnormal Negative [facility] RBC LM.HPF (Urine sed) [#/Area] Negative [facility] Specific gravity (U) [Rel density] 1.039 High 1.005 - 1.030 [facility] Urobilinogen (U) [Mass/Vol] 2 mg/dL Abnormal Normal (0-1) [facility] Volume, Urine 8-12 mL [facility] WBC LM.HPF (Urine sed) [#/Area] 0-2 [facility] CNOVon 11-16-2023 CNOV Office Visit (UCTR ) HUSSEIN LEE ([id number]) 1985 F Date Time Provider Department 11/16/23 7:15 AM ARNALDO VELAZQUEZ [facility] During your visit today, we recorded the following information about you: Temperature Pulse Respiration Blood pressure 97.7 degrees 81/minute 21/minute 124/80 Weight 82.9 kg Arnaldo Velazquez APRN.[employer] 11/16/2023 7:46 AM Signed Subjective HPI Nontoxic-appearing female presents urgent care chief complaint possible finger infection. Duration of symptoms 1 day. Associated symptoms pain swelling redness. Has not used any OTC medications. No known trauma. Risk factors history of nail biting. Works in childcare. Denies any other concerns. Denies chance of . No significant numbness or tingling. No decreased range of motion or function. No weakness. Past medical history prescription medications allergies reviewed. .Patient presents with: Infection: Possible infection in right hand middle finger started this morning PAST MEDICAL HISTORY Diagnosis Date Childhood asthma Noted history of childhood asthma History of smoking PAST SURGICAL HISTORY Procedure Laterality Date TONSILLECTOMY PRIMARY/SECONDARY age 7 years TYMPANOSTOMY LOCAL/TOPICAL ANESTHESIA age 7 ALLERGIES Patient has no known allergies. MEDICATIONS ofloxacin (FLOXIN) 0.3 % otic solution Use 5 Drops in both ears once daily. (Patient not taking: Reported on 11/16/2023) ciprofloxacin HCl (CILOXAN) 0.3 % ophthalmic solution Use 1 Drop in the left eye four times daily. (Patient not taking: Reported on 08/17/2023) albuterol HFA (PROAIR HFA) 90 mcg/actuation inhaler Inhale 2 Puffs as instructed every 4 hours as needed. (Patient not taking: Reported on 08/17/2023) FAMILY HISTORY Problem Relation Age of Onset Cancer Mother from cervical cancer with mets liver? Heart Mother Heart Paternal Grandfather Cancer Maternal Grandmother Asthma Brother Social History Tobacco Use Smoking status: Former Types: Cigarettes Smokeless tobacco: Never Tobacco comments: smokes 1 pack a week; has set a quite date for January 29 2012 (noted smokes) Vaping Use Vaping Use: Never used Substance Use Topics Alcohol use: Yes Comment: socially BP 124/80 Pulse 81 Temp 36.5 ?C (97.7 ?F) Resp 21 Wt 82.9 kg (182 lb 12.2 oz) LMP 03/04/2020 SpO2 99% BMI 36.91 kg/m? Review of Systems Constitutional: Negative for chills, fever and malaise/fatigue. HENT: Negative for congestion, ear discharge, ear pain, sinus pain and sore throat. Eyes: Negative for blurred vision, pain, discharge and redness. Respiratory: Negative for cough, hemoptysis, sputum production, shortness of breath, wheezing and stridor. Cardiovascular: Negative for chest pain. Gastrointestinal: Negative for abdominal pain, diarrhea, nausea and vomiting. Musculoskeletal: Negative for myalgias. Skin: Negative for itching and rash. Neurological: Negative for dizziness and headaches. Objective Physical Exam Constitutional: General: She is not in acute distress. Appearance: She is not toxic-appearing. HENT: Head: Normocephalic. Nose: Nose normal. Eyes: Pupils: Pupils are equal, round, and reactive to light. Cardiovascular: Rate and Rhythm: Normal rate. Pulmonary: Effort: Pulmonary effort is normal. No respiratory distress. Musculoskeletal: Hands: Cervical back: Normal range of motion. Comments: Erythema edema noted. Neurovascular intact. No weaknesses. No pain with palpation of her DIP PIP or MCP joint. Skin: General: Skin is warm and dry. Neurological: General: No focal deficit present. Mental Status: She is alert. Areas cleansed. 18-gauge needle and use peers cuticle fold. Some purulent drainage return noted. Tolerated well. Dressing applied. ASSESSMENT/PLAN: 1. Paronychia of finger, right - ICD9: 681.02, ICD10: L03.011 Diagnosed Paronychia. Mupirocin Augmentin sent to pharmacy. Warm soaks recommended. Red flags reevaluation discussed. Patient was educated on supportive therapies. Patient will follow up with primary care provider as needed. Patient was instructed to immediately proceed to emergency room for any new, worsening, or symptoms lasting longer than anticipated. The patient's clinical presentation is otherwise unremarkable at this time. Based on exam and clinical finding, the patient is stable for discharge. Plan of care was discussed with patient. Patient verbalizes understanding and agrees to plan of care. This note was generated using [employer] software. It may contain errors in wording, punctuation, or spelling. Arnaldo Velazquez APRN.COUNTER POCKET TRIMMER Allergies As of Date: 11/16/2023 (No Known Allergies) Date Reviewed: 11/16/2023 Reviewed by: Arnaldo Velazquez APRN.COUNTER POCKET TRIMMER - Fully Assessed Reason for Visit: Infection [360337] Cmt: Possible infection in right hand mi (more content not included)... [facility] STREP A MOLECULAR (POC)on Procedural Control Valid [facility] Strep A (POCT) Negative Negative [facility] TEST URINEon 05-30 HCG ( test) Ql (U) Negative Normal [facility] Comment on above: Performed By: #### U HCG ####[address] [address]Gfnbyoqxp CBCon 05-23-2017 Erythrocyte distribution width Auto Ratio (RBC) 13.3 % Normal 11.5-14.5 [facility] Comment on above: Performed By: #### C BC ####[address] [address]Fvnmgflwv Erythrocytes (RBC) 4.78 10*6/uL Normal 3.80-5.10 [facility] Comment on above: Performed By: #### C BC ####[address] [address]Kophbjnvu Hematocrit (HCT) 41.1 % Normal 35.0-47.0 [facility] Comment on above: Performed By: #### C BC ####[address] [address]Qhjyujxtx Hemoglobin mass conc (Bld) 14.1 g/dL Normal 12.0-16.0 [facility] Comment on above: Performed By: #### C BC ####[address] [address]Ksnajimoz MCH 29.5 pg Normal 25.6-32.2 [facility] Comment on above: Performed By: #### C BC ####[address] [address]Vkrbkglbf MCHC mass conc (RBC) 34.3 % Normal 32.0-36.0 [facility] Comment on above: Performed By: #### C BC ####[address] [address]Anvaydlzt MCV 86.0 fL Normal 82.0-98.0 [facility] Comment on above: Performed By: #### C BC ####[address] [address]Kvjzteceo Platelet mean volume (PMV) 11.4 fL Normal 9.4-12.4 [facility] Comment on above: Performed By: #### C BC ####[address] [address]Srgozgldc Platelets 314 10*3/uL Normal 150-400 [facility] Comment on above: Performed By: #### C BC ####[address] [address]Jnokmglwe WBC (Leukocytes) 10.56 10*3/uL Normal 4.80-10.80 [facility] Comment on above: Performed By: #### C BC ####[address] [address]Qknmrsptr FOCUS 7on 05-23-2017 Glucose mass conc 90 mg/dL Normal 70-100 [facility] [place] [place] Comment on above: Performed By: #### C HM7 ####[address] [address]Oiuuaaybv Urea nitrogen 19 mg/dL Normal 7-22 [facility] Comment on above: Performed By: #### C HM7 ####[address] [address]Kwntaeiiq CO2 23.0 mm/Hg Normal 22.0-30.0 [facility] Comment on above: Performed By: #### C HM7 ####[address] [address]Vjbpvczpa Creatinine 0.80 mg/dL Normal 0.70-1.20 [facility] Comment on above: Performed By: #### C HM7 ####[address] [address]Rwwkgfalk eGFR (non-black) 88 mL/min/1.73 m2 Normal >60 M [facility] Comment on above: Result Comment: Refe rence Range: 59 to 44 - Mild to moderate loss of kidney function 44 to 30 - Moderate to Severe loss of kidney function 29 to 15 - Severe loss of kidney function <15 - Kidney failureThe estimated GFR is based on the MDRD formula for assessment of stable or slowly declining kidney function in adults.Estimated GFR values are not accurate in: -Obese (BMI>34) OR underweight (BMI<20) people -The very old OR very young -Races other than or -Samoan -People with acute illnesses, amputations, or acute kidney failure.Estimated GFR should be interpreted in clinical context and an alternative method such as a timed urine collection for creatinine clearance used to verify questionable results. (Ref. National Kidney Foundation 2015) Performed By: #### C HM7 ####[address] [address]Uexrbeydw Potassium molar conc 4.4 mmol/L Normal 3.5-5.0 [facility] Comment on above: Performed By: #### C HM7 ####[address] [address]Jddgbywfa Sodium 139 mmol/L Normal 136-145 [facility] Comment on above: Performed By: #### C HM7 ####[address] [address]Xmdgonrsw Chloride 104 mmol/L Normal 100-110 [facility] Comment on above: Performed By: #### C HM7 ####[address] [address]Jlwjuxsil HEPATIC FUNCTION PANELon Alanine aminotransferase (ALT) 31 U/L Normal 9-52 [facility] Comment on above: Performed By: #### H EP1P ####[address] [address]Aheoxwnrz ALK PHOS 46 U/L Normal 38-126 [facility] Comment on above: Performed By: #### H EP1P ####[address] [address]Kjtrtrhnw Aspartate aminotransferase (AST) 22 U/L Normal 14-56 [facility] Comment on above: Performed By: #### H EP1P ####[address] [address]Lfdhzvhve Bilirubin (total) 0.1 mg/dL Normal 0.0-0.4 [facility] [place] [place] Comment on above: Performed By: #### H EP1P ####[facility] [place], [place] [address]Kleutitrz Bilirubin Ql (U) 0.2 mg/dL Normal 0.2-1.2 [facility] Comment on above: Performed By: #### H EP1P ####[facility] [place], [place] [address]Xtaofvwgv Protein 7.7 g/dL Normal 6.0-8.2 [facility] Comment on above: Performed By: #### H EP1P ####[facility] [place], [place] [address]Zqlqhsvyr Albumin 4.4 g/dL Normal 3.5-5.0 [facility] Comment on above: Performed By: #### H EP1P ####[address] [address]Ijnprilql ABDOMINAL LIMITED USon 11-0 ABDOMINAL LIMITED US CLINICAL INDICATION:RUQ PAINEXAM DESCRIPTION:ABDOMINAL LIMITED USFINDINGS:The head, body and tail of the pancreas are visualized and appear normal. Nofocal hepatic mass. The echogenicity and contour of the liver are normal. Alarge shadowing stone within the gallbladder measures 2 cm in diameter. Thegallbladder wall is not thickened. The common hepatic duct is normalmeasuring 3 mm. The right kidney measures 11.2 cm in length with no mass orobstruction.IMPRESS ION:Large 2 cm gallstone. No biliary dilatation or inflammatory changes areidentified. No comparison study.Read By: LISSETTE OROZCO MD Normal [facility] Vital Signs Date Time Vital Sign Value Performing Clinician Lexie tello 10-18-2024 15:50-0400 Body mass index (BMI) [Ratio] 35.09 kg/m2 Hayde Bazan APRN.COUNTER POCKET TRIMMER Work Phone: [facility] 10-18-2024 15:50-0400 Body temperature 98.2 [degF] Hayde Bazan VALERIA.COUNTER POCKET TRIMMER Work Phone: [facility] 10-18-2024 15:50-0400 Body weight 78.8 kg Hayde Bazan VALERIA.COUNTER POCKET TRIMMER Work Phone: [facility] 10-18-2024 15:50-0400 Diastolic blood pressure 89 mm[Hg] Hayde Bazan VALERIA.COUNTER POCKET TRIMMER Work Phone: [facility] 10-18-2024 15:50-0400 Heart rate 70 /min Hayde Bazan VALERIA.COUNTER POCKET TRIMMER Work Phone: [facility] 10-18-2024 15:50-0400 Respiratory rate 18 /min Hayde Bazan VALERIA.COUNTER POCKET TRIMMER Work Phone: [facility] 10-18-2024 15:50-0400 SaO2% (BldA) [Mass fraction] 100 % Hayde Bazan VALERIA.COUNTER POCKET TRIMMER Work Phone: [facility] 10-18-2024 15:50-0400 Systolic blood pressure 148 mm[Hg] Hayde Bazan VALERIA.COUNTER POCKET TRIMMER Work Phone: [facility] 06-15-2024 13:12-0500 Diastolic blood pressure 69 mm[Hg] ABEL Pelaez MD Work Phone: [facility] 06-15-2024 13:12-0500 Heart rate 72 /min ABEL Pelaez MD Work Phone: [facility] 06-15-2024 13:12-0500 Respiratory rate 18 /min ABEL Pelaez MD Work Phone: [facility] 06-15-2024 13:12-0500 SaO2% (BldA) [Mass fraction] 99 % ABEL Pelaez MD Work Phone: [facility] 06-15-2024 13:12-0500 Systolic blood pressure 123 mm[Hg] ABEL Pelaez MD Work Phone: [facility] 06-15-2024 11:38-0500 Body height 149.9 cm ABEL Pelaez MD Work Phone: [facility] 06-15-2024 11:38-0500 Body mass index (BMI) [Ratio] 34.34 kg/m2 ABEL Pelaez MD Work Phone: [facility] 06-15-2024 11:38-0500 Body temperature 97.11 [degF] ABEL Pelaez MD Work Phone: [facility] 06-15-2024 11:38-0500 Body weight 77.11 kg ABEL Pelaez MD Work Phone: [facility] 11-16-2023 07:13-0400 Body mass index (BMI) [Ratio] 36.91 kg/m2 Arnaldo Velazquez HULL OUTFIT SUPERVISOR.COUNTER POCKET TRIMMER Work Phone: [facility] 11-16-2023 07:13-0400 Body temperature 97.7 [degF] Arnaldo Velazquez HULL OUTFIT SUPERVISOR.COUNTER POCKET TRIMMER Work Phone: [facility] 11-16-2023 07:13-0400 Body weight 82.9 kg Arnaldo Velazquez HULL OUTFIT SUPERVISOR.COUNTER POCKET TRIMMER Work Phone: [facility] 11-16-2023 07:13-0400 Diastolic blood pressure 80 mm[Hg] Arnaldo Velazquez HULL OUTFIT SUPERVISOR.COUNTER POCKET TRIMMER Work Phone: [facility] 11-16-2023 07:13-0400 Heart rate 81 /min Arnaldo Velazquez APRN.COUNTER POCKET TRIMMER Work Phone: [facility] 11-16-2023 07:13-0400 Respiratory rate 21 /min Arnaldo Velazquez APRN.COUNTER POCKET TRIMMER Work Phone: [facility] 11-16-2023 07:13-0400 SaO2% (BldA) [Mass fraction] 99 % Arnaldo Velazquez HULL OUTFIT SUPERVISOR.COUNTER POCKET TRIMMER Work Phone: [facility] 11-16-2023 07:13-0400 Systolic blood pressure 124 mm[Hg] Arnaldo Velazquez APRN.COUNTER POCKET TRIMMER Work Phone: [facility] 10-07-2023 09:44-0400 Body height 149.9 cm Corinne Ball HULL OUTFIT SUPERVISOR.COUNTER POCKET TRIMMER Work Phone: [facility] 10-07-2023 09:44-0400 Body temperature 97.59 [degF] Corinne Ball HULL OUTFIT SUPERVISOR.COUNTER POCKET TRIMMER Work Phone: [facility] 10-07-2023 09:44-0400 Body weight 87.7 kg Corinne Ball HULL OUTFIT SUPERVISOR.COUNTER POCKET TRIMMER Work Phone: [facility] 10-07-2023 09:44-0400 Diastolic blood pressure 79 mm[Hg] Corinne Ball HULL OUTFIT SUPERVISOR.COUNTER POCKET TRIMMER Work Phone: [facility] 10-07-2023 09:44-0400 Heart rate 77 /min Corinne Ball HULL OUTFIT SUPERVISOR.COUNTER POCKET TRIMMER Work Phone: [facility] 10-07-2023 09:44-0400 Respiratory rate 16 /min Corinne Ball HULL OUTFIT SUPERVISOR.COUNTER POCKET TRIMMER Work Phone: [facility] 10-07-2023 09:44-0400 SaO2% (BldA) [Mass fraction] 99 % Corinne Ball HULL OUTFIT SUPERVISOR.COUNTER POCKET TRIMMER Work Phone: [facility] 10-07-2023 09:44-0400 Systolic blood pressure 136 mm[Hg] Corinne Ball HULL OUTFIT SUPERVISOR.COUNTER POCKET TRIMMER Work Phone: [facility] 08-17-2023 16:01-0500 Body temperature 97.39 [degF] Krislyn Aberegg PA Work Phone: [facility] 08-17-2023 16:01-0500 Body weight 91.17 kg Krislyn Aberegg PA Work Phone: [facility] 08-17-2023 16:01-0500 Diastolic blood pressure 80 mm[Hg] Krislyn Aberegg PA Work Phone: [facility] 08-17-2023 16:01-0500 Heart rate 74 /min Krislyn Aberegg PA Work Phone: [facility] 08-17-2023 16:01-0500 Respiratory rate 16 /min Krislyn Aberegg PA Work Phone: [facility] 08-17-2023 16:01-0500 SaO2% (BldA) [Mass fraction] 100 % Tania Quach PA Work Phone: [facility] 08-17-2023 16:01-0500 Systolic blood pressure 122 mm[Hg] Tania Quach PA Work Phone: [facility] 08-24-2022 15:57-0500 Body temperature 98.8 [degF] Alex Nate HULL OUTFIT SUPERVISOR.COUNTER POCKET TRIMMER Work Phone: [facility] 08-24-2022 15:57-0500 Body weight 95.71 kg Alex Nate HULL OUTFIT SUPERVISOR.COUNTER POCKET TRIMMER Work Phone: [facility] 08-24-2022 15:57-0500 Diastolic blood pressure 78 mm[Hg] Alex Nate HULL OUTFIT SUPERVISOR.COUNTER POCKET TRIMMER Work Phone: [facility] 08-24-2022 15:57-0500 Heart rate 80 /min Alex Nate HULL OUTFIT SUPERVISOR.COUNTER POCKET TRIMMER Work Phone: [facility] 08-24-2022 15:57-0500 Respiratory rate 16 /min Alex Nate HULL OUTFIT SUPERVISOR.COUNTER POCKET TRIMMER Work Phone: [facility] 08-24-2022 15:57-0500 SaO2% (BldA) [Mass fraction] 98 % Alex Nate HULL OUTFIT SUPERVISOR.COUNTER POCKET TRIMMER Work Phone: [facility] 08-24-2022 15:57-0500 Systolic blood pressure 128 mm[Hg] Alex Nate HULL OUTFIT SUPERVISOR.COUNTER POCKET TRIMMER Work Phone: [facility] Encounters Encounter Date Encounter Type Care Provider Facility Start: 10-18-2024 End: 10-18-2024 Subsequent hospital visit by physician [facility] Work Phone: Radiology Comment on above: Acute cough [R05.1] Start: 10-18-2024 End: 10-18-2024 Patient encounter procedure Hayde Bazan APRN.COUNTER POCKET TRIMMER Work Phone: [facility] Comment on above: Acute cough (Primary Dx); URI, acute Start: 10-18-2024 End: 10-18-2024 ambulatory HAYDE HORTENSIA Facility:[facility] Start: 06-15-2024 End: 06-15-2024 Subsequent hospital visit by physician [facility] Exam Room [address] [facility] [address] Comment on above: Arrived Start: 06-15-2024 End: 06-15-2024 Emergency department patient visit J Jane Pelaez MD Work Phone: [facility] Comment on above: Sigmoid diverticulit is (Primary Dx) Start: 11-16-2023 End: 11-16-2023 ambulatory HAYDE BAZAN Facility:[facility] Start: 11-16-2023 End: 11-16-2023 Office outpatient visit 25 minutes Arnaldo Velazquez APRN.COUNTER POCKET TRIMMER Work Phone: [facility] Comment on above: Paronychia of finger , right (Primary Dx) Start: 10-07-2023 End: 10-07-2023 Office outpatient visit 15 minutes Corinne Lyons APRN.COUNTER POCKET TRIMMER Work Phone: [facility] Comment on above: Acute otitis externa of both ears, unspecified type (Primary Dx) Start: 08-17-2023 End: 08-17-2023 Patient encounter procedure Tania ARMENDARIZ Work Phone: [facility] Comment on above: Sore throat (Primary Dx); URI, acute; Acute otitis media, right Start: 08-24-2022 End: 08-24-2022 Patient encounter procedure Alex Sullivan APRN.COUNTER POCKET TRIMMER Work Phone: [facility] Comment on above: Bacterial conjunctiv itis (Primary Dx) Start: 08-24-2022 Telephone encounter Alex solis APRN.COUNTER POCKET TRIMMER Work Phone: [facility] Comment on above: Medication Problem Start: 02-23-2022 Telephone encounter Hayde Bazan APRN.COUNTER POCKET TRIMMER Work Phone: [facility] Comment on above: Results Start: 05-30-2017 End: 05-31-2017 Ambulatory ARNALDO FERNANDEZ Facility: Start: 05-23-2017 End: 05-24-2017 Ambulatory ISAURA DENT Facility:01 Start: 05-05-2017 End: 05-06-2017 Ambulatory ISAURA DENT Facility:01 Procedures Date Procedure Procedure Detail Performing Clinician Start: 10-18-2024 Radiologic exam ches t 2 views Hayde Bazan APRN.CNP Work Phone: Start: 06-15-2024 Ct abdomen & pelvis w/o contrast material Camryn Pelaez MD Work Phone: Start: 06-15-2024 Assay of phosphatase alkaline J Jane Pelaez MD Work Phone: Start: 06-15-2024 Urinalysis complete panel - Urine J Jane Pelaez MD Work Phone: Start: 06-15-2024 Urine test visual color cmprsn meths Camryn Pelaez MD Work Phone: Start: 06-15-2024 Urnls dip stick/tabl et reagent auto microscopy Camryn Pelaez MD Work Phone: Start: 08-17-2023 STREP A MOLECULAR (POC) Tania ARMENDARIZ Work Phone: Plan of Treatment Date Care Activity Detail Author Start: 2060 RSV Immunization for Adults (1 - 1-dose 75+ series) RSV Immunization for Adults (1 - 1-dose 75+ series) [facility] Start: 2035 Zoster Vaccines (1 of 2) Zoster Vacc manjula (1 of 2) [facility] Start: 03-04-2024 COVID-19 Vaccine ( season) COVID-19 Vaccine ( season) [facility] Start: 03-04-2024 Influenza vaccination [facility] Start: 07-04-2023 Behavioral Health Screening Behavioral Health Screening [facility] Start: 07-04-2023 Depression Assessment Depression Ass essment [facility] Start: 03-04-2023 Covid-19 Vaccine ( season) Covid-19 Vaccine ( season) [facility] Start: 03-04-2023 Influenza vaccination Influenza Vacc ine (#1) [facility] Start: 07-04-2022 DEPRESSION ASSESSMENT DEPRESSION ASS ESSMENT [facility] Start: 03-04-2022 Influenza vaccination INFLUENZA (#1) [facility] Start: 07-02-2016 PAP TESTING PAP TESTING [facility] Start: 07-02-2016 Screening for malign ant neoplasm of cervix Pap Testing [facility] Start: 2015 HPV TESTING HPV TESTING [facility] Start: 2015 Screening for malign ant neoplasm of cervix [facility] Start: 07-02-2014 Screening for malign ant neoplasm of cervix Cervical Cancer Screening [facility] Start: 2006 Screening for malign ant neoplasm of cervix Pap Smear [facility] Start: 07-22-2005 DTaP/Tdap/Td Vaccine s (5 - Tdap) DTaP/Tdap/Td Vaccines (5 - Tdap) [facility] Start: 07-22-2005 Urine microalbumin profile [facility] Start: 2004 DTaP/Tdap/Td Vaccine s (1 - Tdap) DTaP/Tdap/Td Vaccines (1 - Tdap) [facility] Start: 2004 Hepatitis B Vaccine (1 of 3 - 19+ 3-dose series) Hepatitis B Vaccine (1 of 3 - 19+ 3-dose series) [facility] Start: 2004 Hepatitis B Vaccines (1 of 3 - 19+ 3-dose series) Hepatitis B Vaccines (1 of 3 - 19+ 3-dose series) [facility] Start: 2003 Anxiety Screening Anxiety Screening [facility] Start: 2003 Depression Screening Depression Scre ening [facility] Start: 2003 HEPATITIS C SCREENING HEPATITIS C [facility] Start: 2003 Hepatitis C screening Hepatitis C [facility] Start: 2003 HIV SCREENING HIV SCREENING [facility] Start: 2003 HIV screening HIV Screening [facility] Start: 1998 Varicella vaccination Varicell a Vaccines (1 of 2 - 13+ 2-dose series) [facility] Start: 1997 Adult depression screening assessment DEPRESSION SCREENING [facility] Start: 1986 MMR Vaccines (1 of 1 - Standard series) MMR Vaccines (1 of 1 - Standard series) [facility] Start: 01-02-1986 COVID-19 VACCINE (#1) COVID-19 VACCI NE (#1) [facility] Start: 1985 HEPATITIS B (1 of 3 - 3-dose series) HEPATITIS B (1 of 3 - 3-dose series) [facility] Start: 1985 Hepatitis B Vaccine (1 of 3 - 3-dose series) Hepatitis B Vaccine (1 of 3 - 3-dose series) [facility] Start: 1985 HIV screening HIV Screening [facility] Start: 1985 Lipid panel Lipid Panel [facility] Immunizations Immunization Date Immunization Notes Care Provider Fa [facility] 08-10-2019 influenza virus vaccine, unspecified formulation Tania ARMENDARIZ Work Phone: [facility] 03-15-2012 human papilloma viru s vaccine, quadrivalent Hayde Bazan APRN.COUNTER POCKET TRIMMER Work Phone: [facility] 11-15-2011 human papilloma viru s vaccine, quadrivalent Hayde Hortensia HULL OUTFIT SUPERVISOR.COUNTER POCKET TRIMMER Work Phone: [facility] 09-06-2011 human papilloma viru s vaccine, quadrivalent Hayderenetta Bazan APRN.[facility] Work Phone: [facility] Work Phone: 07-21-2005 tetanus and diphther ia toxoids, adsorbed, preservative free, for adult use (2 Lf of tetanus toxoid and 2 Lf of diphtheria toxoid) Hayde Bazan APRN.COUNTER POCKET TRIMMER Work Phone: [facility] Work Phone: 07-19-2005 tuberculin skin test ; purified protein derivative solution, intradermal Hayde Bazan APRN.COUNTER POCKET TRIMMER Work Phone: [facility] 12-12-1996 measles, mumps and rubella virus vaccine Hayde Bazan APRN.COUNTER POCKET TRIMMER Work Phone: [facility] Work Phone: 03-22-1991 diphtheria and tetan us toxoids, adsorbed for pediatric use Hayde Bazan APRN.COUNTER POCKET TRIMMER Work Phone: [facility] Work Phone: 07-08-1989 diphtheria and tetan us toxoids, adsorbed for pediatric use Hayde Hortensia HULL OUTFIT SUPERVISOR.[facility] Work Phone: [facility] Work Phone: 07-08-1989 measles, mumps and rubella virus vaccine Hayde Hortensia HULL OUTFIT SUPERVISOR.[facility] Work Phone: [facility] Work Phone: 07-08-1989 trivalent poliovirus vaccine, live, oral Hayde Hortensia HULL OUTFIT SUPERVISOR.COUNTER POCKET TRIMMER Work Phone: [facility] Work Phone: 02-25-1986 diphtheria and tetan us toxoids, adsorbed for pediatric use Hayde Hortensia HULL OUTFIT SUPERVISOR.[facility] Work Phone: [facility] Work Phone: 02-25-1986 trivalent poliovirus vaccine, live, oral Hayde Hortensia HULL OUTFIT SUPERVISOR.[facility] Work Phone: [facility] Work Phone: 1985 diphtheria and tetan us toxoids, adsorbed for pediatric use Hayde Hortensia HULL OUTFIT SUPERVISOR.[facility] Work Phone: [facility] Work Phone: 1985 trivalent poliovirus vaccine, live, oral Hayde Hortensia HULL OUTFIT SUPERVISOR.[facility] [facility] Work Phone: [facility] Work Phone: Payers Date Payer Category Payer Medicaid HMO [employer] ODM [id number] 2022 Medicaid [id number] 2019 Medicaid [id number] Unknown [id number] Social History Date Type Detail Facility Start: 02-22-2022 End: 06-15-2024 Tobacco smoking status NHIS Ex-smoker [facility] Work Phone: History of tobacco use Current smoker [facility] Work Phone: History of tobacco use Cigarette Smoker [facility] Work Phone: Start: 02-22-2022 End: 06-15-2024 Tobacco use and exposure Smokeless tobacco non-user [facility] Work Phone: Start: 02-22-2022 End: 10-18-2024 Alcohol intake Current drinker of alcohol (finding) [facility] Start: 02-22-2022 Tobacco Comment smokes 1 pack a week; has set a quite date for January 29 2012 (noted smokes) [facility] Start: 1985 Sex Assigned At Not on file [facility] Start: 02-12-2022 End: 02-22-2022 Exposure to SARS-CoV-2 (event) Not sure [facility] Work Phone: Start: 06-08-2020 End: 08-17-2023 History of Social function [facility] Start: 06-08-2020 End: 08-17-2023 Tobacco use panel [facility] National Score (1-100), lower number is lower risk Not on file [facility] Start: 06-15-2024 Alcohol Comment socially [facility] Start: 06-15-2024 Sex Female (finding) [facility] Functional Status Date Assessment Result Facility 11-05-2014 Are you deaf, or do you have serious difficulty hearing No 11/05/2014 8:00 AM Juany Solitario LPN No [facility] 11-05-2014 Are you blind, or do you have serious difficulty seeing, even when wearing glasses No 11/05/2014 8:00 AM Juany Solitario LPN No [facility] 11-05-2014 Do you have serious difficulty walking or climbing stairs No 11/05/2014 8:00 AM Juany Solitario LPN No [facility] 11-05-2014 Do you have difficul ty dressing or bathing No 11/05/2014 8:00 AM Juany Solitario LPN No [facility] 11-05-2014 Because of a physica l, mental, or emotional condition, do you have difficulty doing errands alone such as visiting a physician's office or shopping No 11/05/2014 8:00 AM Juany Solitario LPN No [facility] Mental Status Date Assessment Result Facility 11-05-2014 Because of a physica l, mental, or emotional condition, do you have serious difficulty concentrating, remembering, or making decisions No 11/05/2014 8:00 AM Juany Solitario LPN No [facility] Clinical Notes 02-23-2022 to 10-18-2024 Luana Patton RT(R) - 10/18/2024 4:10 PM Hayde Wheeler APRN.COUNTER POCKET TRIMMER - 10/18/2024 3:59 PM Mckenzie Shoemaker RN - 06/15/2024 1:50 PM Anne Shoemaker RN - 06/15/2024 1:50 PM ESTAttachments Note Date & Type Note Facility 10-18-2024 History of Presen t illness Narrative Radiology Service Progress Note PATIENT NAME: Hussein Lee DATE OF SERVICE: October 18, 2024 TIME: 4:15 PM PATIENT IDENTITY VERIFICATION COMPLETED USING TWO (2) IDENTIFIERS: Name and Date of confirmed by patient verbally. FALL SCREENING: Has the patient had 2 falls in the last year or 1 fall with injury or currently using an Ambulatory Assistive Device (Walker, Cane, Wheelchair, Crutches, etc.)? No PATIENT GENDER DATA: Assigned female at . status: : No status: NO. PATIENT RELEVANT IMPLANT DATA REVIEWED: Yes PATIENT PRESENTS WITH AN IMPLANTABLE OR ATTACHED DIRECTOR OF BUSINESS CONTINUITY: No RADIOLOGY DEPARTMENT: General X-ray: Exam(s) Completed: Chest X-Ray PERIPHERAL IV DATA: Not applicable SIGNED BY: RT Gavino(R) October 18, 2024 4:15 PM documented in this encounter [facility] 10-18-2024 Note HNO ID: [id number] Author: LUANA PATTON RT(R) Service: ? Author Type: Power System Engineer Type: Progress Notes Filed: 10/18/2024 16:22 Note Text: Radiology Service Progress Note PATIENT NAME: Hussein Lee DATE OF SERVICE: October 18, 2024 TIME: 4:15 PM PATIENT IDENTITY VERIFICATION COMPLETED USING TWO (2) IDENTIFIERS: Name and Date of confirmed by patient verbally. FALL SCREENING: Has the patient had 2 falls in the last year or 1 fall with injury or currently using an Ambulatory Assistive Device (Walker, Cane, Wheelchair, Crutches, etc.)? No PATIENT GENDER DATA: Assigned female at . status: : No status: NO. PATIENT RELEVANT IMPLANT DATA REVIEWED: Yes PATIENT PRESENTS WITH AN IMPLANTABLE OR ATTACHED DIRECTOR OF BUSINESS CONTINUITY: No RADIOLOGY DEPARTMENT: General X-ray: Exam(s) Completed: Chest X-Ray PERIPHERAL IV DATA: Not applicable SIGNED BY: RT Gavino(R) October 18, 2024 4:15 PM [facility] 10-18-2024 Note HNO ID: [id number] Author: HAYDE BAZAN APRN.COUNTER POCKET TRIMMER Service: ? Author Type: Nurse Practitioner Type: Progress Notes Filed: 10/18/2024 16:37 Note Text: [facility] Subjective Hussein Lee is a 39 year old female. Patient presents with: Cough: Chest congestion, R side chest discomfort with cough, bilateral ear pain x3 days Patient came in with complaints of 3 days worth of congestion cough. Patient says she does have some shortness of breath when walking. Denies any chest pain or other symptoms. The history is provided by the patient. No linen room attendant was used. Cough Associated symptoms include shortness of breath. Review of Systems Constitutional: Negative. HENT: Positive for congestion. Respiratory: Positive for cough and shortness of breath. Objective BP 148/89 Pulse 70 Temp 36.8 ?C (98.2 ?F) Resp 18 Wt 78.8 kg (173 lb 11.6 oz) LMP 03/04/2020 SpO2 100% BMI 35.09 kg/m? Physical Exam Constitutional: Appearance: Normal appearance. HENT: Right Ear: Tympanic membrane, ear canal and external ear normal. Left Ear: Tympanic membrane, ear canal and external ear normal. Mouth/Throat: Mouth: Mucous membranes are moist. Pharynx: Oropharynx is clear. Eyes: Pupils: Pupils are equal, round, and reactive to light. Cardiovascular: Rate and Rhythm: Normal rate and regular rhythm. Heart sounds: Normal heart sounds. Pulmonary: Effort: Pulmonary effort is normal. Breath sounds: Normal breath sounds. Neurological: Mental Status: She is alert. PAST MEDICAL HISTORY Diagnosis Date Childhood asthma (HCC) Noted history of childhood asthma History of smoking PAST SURGICAL HISTORY Procedure Laterality Date TONSILLECTOMY PRIMARY/SECONDARY age 7 years TYMPANOSTOMY LOCAL/TOPICAL ANESTHESIA age 7 ALLERGIES Patient has no known allergies. MEDICATIONS ofloxacin (FLOXIN) 0.3 % otic solution Use 5 Drops in both ears once daily. (Patient not taking: Reported on 11/16/2023) ciprofloxacin HCl (CILOXAN) 0.3 % ophthalmic solution Use 1 Drop in the left eye four times daily. (Patient not taking: Reported on 08/17/2023) albuterol HFA (PROAIR HFA) 90 mcg/actuation inhaler Inhale 2 Puffs as instructed every 4 hours as needed. (Patient not taking: Reported on 08/17/2023) FAMILY HISTORY Problem Relation Age of Onset Cancer Mother from cervical cancer with mets liver? Heart Mother Heart Paternal Grandfather Cancer Maternal Grandmother Asthma Brother Social History Tobacco Use Smoking status: Former Types: Cigarettes Smokeless tobacco: Never Tobacco comments: smokes 1 pack a week; has set a quite date for January 29 2012 (noted smokes) Vaping Use Vaping status: Never Used Substance Use Topics Alcohol use: Yes Comment: socially {ASSESSMENT/PLAN: 1. Acute cough - ICD9: 786.2, ICD10: R05.1 (primary diagnosis) - XR CHEST 2V FRONTAL/LAT - neg - PREDNISONE 10 MG TABLET - BENZONATATE 100 MG CAPSULE 2. URI, acute - ICD9: 465.9, ICD10: J06.9 - Discussed viral etiology and rationale for treatment. - Symptomatic treatment with prn analgesia - Supportive care with fluids and rest Hayde Bazan APRN.COUNTER POCKET TRIMMER History and Record Review External record(s) reviewed: no prior records. Disposition The patient was discharged. Procedures [facility] 10-18-2024 History of Presen t illness Narrative [facility] Subjective Hussein Lee is a 39 year old female. Patient presents with: Cough: Chest congestion, R side chest discomfort with cough, bilateral ear pain x3 days Patient came in with complaints of 3 days worth of congestion cough. Patient says she does have some shortness of breath when walking. Denies any chest pain or other symptoms. The history is provided by the patient. No linen room attendant was used. Cough Associated symptoms include shortness of breath. Review of Systems Constitutional: Negative. HENT: Positive for congestion. Respiratory: Positive for cough and shortness of breath. Objective BP 148/89 Pulse 70 Temp 36.8 C (98.2 F) Resp 18 Wt 78.8 kg (173 lb 11.6 oz) LMP 03/04/2020 SpO2 100% BMI 35.09 kg/m Physical Exam Constitutional: Appearance: Normal appearance. HENT: Right Ear: Tympanic membrane, ear canal and external ear normal. Left Ear: Tympanic membrane, ear canal and external ear normal. Mouth/Throat: Mouth: Mucous membranes are moist. Pharynx: Oropharynx is clear. Eyes: Pupils: Pupils are equal, round, and reactive to light. Cardiovascular: Rate and Rhythm: Normal rate and regular rhythm. Heart sounds: Normal heart sounds. Pulmonary: Effort: Pulmonary effort is normal. Breath sounds: Normal breath sounds. Neurological: Mental Status: She is alert. PAST MEDICAL HISTORY Diagnosis Date Childhood asthma (HCC) Noted history of childhood asthma History of smoking PAST SURGICAL HISTORY Procedure Laterality Date TONSILLECTOMY PRIMARY/SECONDARY <AGE 12 age 7 years TYMPANOSTOMY LOCAL/TOPICAL ANESTHESIA age 7 ALLERGIES Patient has no known allergies. MEDICATIONS ofloxacin (FLOXIN) 0.3 % otic solution Use 5 Drops in both ears once daily. (Patient not taking: Reported on 11/16/2023) ciprofloxacin HCl (CILOXAN) 0.3 % ophthalmic solution Use 1 Drop in the left eye four times daily. (Patient not taking: Reported on 08/17/2023) albuterol HFA (PROAIR HFA) 90 mcg/actuation inhaler Inhale 2 Puffs as instructed every 4 hours as needed. (Patient not taking: Reported on 08/17/2023) FAMILY HISTORY Problem Relation Age of Onset Cancer Mother from cervical cancer with mets liver? Heart Mother Heart Paternal Grandfather Cancer Maternal Grandmother Asthma Brother Social History Tobacco Use Smoking status: Former Types: Cigarettes Smokeless tobacco: Never Tobacco comments: smokes 1 pack a week; has set a quite date for January 29 2012 (noted smokes) Vaping Use Vaping status: Never Used Substance Use Topics Alcohol use: Yes Comment: socially {ASSESSMENT/PLAN: 1. Acute cough - ICD9: 786.2, ICD10: R05.1 (primary diagnosis) - XR CHEST 2V FRONTAL/LAT - neg - PREDNISONE 10 MG TABLET - BENZONATATE 100 MG CAPSULE 2. URI, acute - ICD9: 465.9, ICD10: J06.9 - Discussed viral etiology and rationale for treatment. - Symptomatic treatment with prn analgesia - Supportive care with fluids and rest Hayde Bazan APRN.ASHLY History and Record Review External record(s) reviewed: no prior records. Disposition The patient was discharged. Procedures documented in this encounter [facility] 06-15-2024 Emergency department Note Discharge teaching completed. Pt verbalizes understanding of medications, times to return to the ED, and follow up care discussed. Pt is stable and ambulatory upon discharge. Pt is a/o x 4; breathing is even and unlabored on room air. No distress noted. Pt leaves ED with all belongings. [facility] 06-15-2024 Note Discharge teaching c ompleted. Pt verbalizes understanding of medications, times to return to the ED, and follow up care discussed. Pt is stable and ambulatory upon discharge. Pt is a/o x 4; breathing is even and unlabored on room air. No distress noted. Pt leaves ED with all belongings. [facility] 06-15-2024 Emergency department Note Discharge teaching completed. Pt verbalizes understanding of medications, times to return to the ED, and follow up care discussed. Pt is stable and ambulatory upon discharge. Pt is a/o x 4; breathing is even and unlabored on room air. No distress noted. Pt leaves ED with all belongings. EMERGENCY DEPARTMENT ENCOUNTER Pt Name: Hussein Alston Birthdate 1985 Date of evaluation: 06/15/2024 ED Provider: Bere Pelaez MD CHIEF COMPLAINT Chief Complaint Patient presents with Pelvic Pain Sore Throat Pt tested positive for strep yesterday, has not vomited since yesterday, was started on amoxicillin yesterday HISTORY OF PRESENT ILLNESS (Location/Symptom, Timing/Onset, Context/Setting, Quality, Duration, Modifying Factors, Severity) Note limiting factors. I wore appropriate PPE for the entirety of this encounter. HPI Hussein Alston is a 38 y.o. female who presents to the emergency department with chief complaint of pelvic pain that radiates into her flank pain since last night. She endorses history of kidney stones. She denies any hematuria or dysuria. She denies concerns for STDs and denies any vaginal discharge. Of note, she states that she was diagnosed with strep pharyngitis yesterday and was started on amoxicillin yesterday, but is not at all concerned for her throat. She states that her last menstrual period was a month ago. Nursing Notes were reviewed. Limitations to history: None Outside historians: Friend REVIEW OF SYSTEMS Review of Systems Pertinent positives and negatives as per HPI. PAST MEDICAL HISTORY Past Medical History: Diagnosis Date Kidney stones SURGICAL HISTORY Past Surgical History: Procedure Laterality Date SECTION (HISTORICAL) CHOLECYSTECTOMY CURRENT MEDICATIONS Current Discharge Medication List ALLERGIES Patient has no known allergies. FAMILY HISTORY No family history on file. SOCIAL HISTORY Social History Socioeconomic History Marital status: Single Tobacco Use Smoking status: Former Types: Cigarettes Smokeless tobacco: Never Vaping Use Vaping status: Every Day Substances: Nicotine Substance and Sexual Activity Alcohol use: Yes Comment: socially Drug use: Yes Types: Marijuana Comment: rarely SCREENINGS PHYSICAL EXAM ED Triage Vitals [06/15/24 1138] Temp Heart Rate Resp BP 36.2 C (97.1 F) 96 18 132/83 SpO2 Temp Source Heart Rate Source Patient Position 100 % Temporal -- Sitting BP Location FiO2 (%) Right arm -- Physical Exam Vitals and nursing note reviewed. Constitutional: General: She is not in acute distress. Appearance: She is well-developed. HENT: Head: Normocephalic and atraumatic. Eyes: Conjunctiva/sclera: Conjunctivae normal. Cardiovascular: Rate and Rhythm: Normal rate and regular rhythm. Heart sounds: No murmur heard. Pulmonary: Effort: Pulmonary effort is normal. No respiratory distress. Breath sounds: Normal breath sounds. Abdominal: Palpations: Abdomen is soft. Tenderness: There is generalized abdominal tenderness. There is left CVA tenderness. Musculoskeletal: General: No swelling. Cervical back: Neck supple. Skin: General: Skin is warm and dry. Capillary Refill: Capillary refill takes less than 2 seconds. Neurological: Mental Status: She is alert. Psychiatric: Mood and Affect: Mood normal. DIAGNOSTIC RESULTS Procedures/EKG: Interpretation per the Radiologist below, if available at the time of this note: CT abdomen pelvis wo IV contrast Final Result Acute sigmoid diverticulitis. Small amount of free fluid in the pelvis. Report Dictated on Electronically Signed By: Alex Quintero MD Electronically Signed Date/Time: 06/15/2024 1:24 PM EST ED BEDSIDE ULTRASOUND: Performed by ED Physician - none LABS: Labs Reviewed CBC WITH AUTO DIFFERENTIAL - Abnormal Result Value Auto WBC 17.0 (*) RBC 4.24 Hemoglobin 13.5 Hematocrit 36.7 MCV 86.6 MCH 31.8 MCHC 36.8 (*) RDW 13.2 Platelets 301 MPV 10.4 nRBC 0.0 Neutrophils Relative 78.3 Lymphocytes Relative 14.3 (*) Monocytes Relative 6.2 Eosinophils Relative 0.5 Basophils Relative 0.2 Immature Grans % 0.5 Neutrophils Absolute 13.3 (*) Lymphocytes Absolute 2.4 Monocytes Absolute 1.1 (*) Eosinophils Absolute 0.1 Basophils Absolute 0.0 Immature Grans Absolute 0.1 (*) COMPREHENSIVE METABOLIC PANEL - Abnormal SODIUM 138 POTASSIUM 4.2 CHLORIDE 110 (*) CARBON DIOXIDE 23 ANION GAP 5 UREA NITROGEN 18 CREATININE 0.76 GLUCOSE 96 CALCIUM 8.9 AST (SGOT) 25 ALT 14 ALKALINE PHOSPHATASE 49 ALBUMIN 3.4 (*) BILIRUBIN, TOTAL 0.7 TOTAL PROTEIN 6.7 eGFR >90.0 COMPLETE URINALYSIS - Abnormal Color, Urine Yellow Clarity, Urine Clear pH, Urine 6.0 Leukocytes, Urine Negative Nitrite, Urine Negative Protein, Urine 20 (*) Glucose, Urine Normal Bilirubin, Urine Negative Ketones, Urine 60 (*) Urobilinogen, Urine 2 (*) Blood, Urine Negative Volume, Urine 8-12 mL RBC, Urine Negative WBC, Urine 0-2 Squamous Epithelial, Urine 3-5 Bacteria, Urine Few (*) SPECIFIC GRAVITY OF URINE (NUMERIC) 1.039 (*) LIPASE - Normal LIPASE 13 COMPLETE URINALYSIS WITH REFLEX TO CULTURE Narrative: The following orders were created for panel order Urinalysis Complete with reflex to Culture. Procedure Abnormality Status --------- ------ Complete Urinalysis[[id number]] Abnormal Final result Please view results for these tests on the individual orders. HCG QUALITATIVE URINE HCG,URINE QUAL Negative Narrative: is the most common reason for HCG in urine, although choriocarcinoma, hydatidiform mole, and certain nontrophoblastic malignancies also result in detectable urinary HCG levels. Sensitivity = 20mIU/mL. All other labs were within normal range or not returned as of this dictation. EMERGENCY DEPARTMENT COURSE and DIFFERENTIAL DIAGNOSIS/MDM: Vitals: Vitals: 06/15/24 1138 06/15/24 1312 BP: 132/83 123/69 BP Location: Right arm Right arm Patient Position: Sitting Lying Pulse: 96 72 Resp: 18 18 Temp: 36.2 C (97.1 F) TempSrc: Temporal SpO2: 100% 99% Weight: 77.1 kg (170 lb) Height: 1.499 m (4' 11) The patient presented with a chief complaint of pelvic pain and flank pain. The differential diagnosis associated with this patient's presentation includes but is not limited to: Presentation concerning for kidney stones versus pyelonephritis. She denies any vaginal discharge but still cannot rule out ovarian torsion. Cannot rule out pancreatitis versus diverticulitis versus biliary pathology versus appendicitis versus SBO. No rebound or guarding on exam, and I'm less concerned for mesenteric ischemia versus perforated viscus. Our workup consisted of ordering/reviewing: CBC, CMP, urinalysis, , lipase, CT abdomen pelvis. Blood work significant for leukocytosis of 17, likely secondary to the acute sigmoid diverticulitis found on CT abdomen pelvis. Urine demonstrating bacteria but negative for nitrites or leukocyte esterase and also negative for blood. Consideration for escalation of care with: Admission/observation admission for IV antibiotics, but the patient declines, stating that she would prefer to try outpatient therapy and will return if her symptoms change or worsen. . The patient will be discharged The patient is in agreement with this plan. ED Course as of 06/15/244 TueJun 15, 2024 1230 Auto WBC(!): 17.0 [JM] 1256 Bacteria, Urine(!): Few [JM] 1256 RBC, Urine: Negative [JM] ED Course User Index [JM] Camryn Pelaez MD Diagnoses as of 06/15/241333 Sigmoid diverticulitis Medications amoxicillin-clavulanate (Augmentin) 875-125 MG per tablet 1 tablet (has no administration in time range) ketorolac (Toradol) injection 15 mg (15 mg IntraVENous Given 06/15/24 1309) REVAL: CRITICAL CARE TIME None CONSULTS: None PROCEDURES: Unless otherwise noted below, none Procedures FINAL IMPRESSION 1. Sigmoid diverticulitis DISPOSITION Discharge 06/15/2024 01:32:20 PM [place] [facility] [place] [address] [place] [address] Schedule an appointment as soon as possible for a visit in 1 week DISCHARGE MEDICATIONS: Current Discharge Medication List START taking these medications Details amoxicillin-clavulanate (Augmentin) 875-125 MG tablet Take 1 tablet by mouth 2 times daily for 7 days. Qty: 14 tablet, Refills: 0 (Comment: Please note this report has been produced using speech recognition software and may contain errors related to that system including errors in grammar, punctuation, and spelling, as well as words and phrases that may be inappropriate. If there are any questions or concerns please feel free to contact the dictating provider for clarification.) Bere Pelaez MD (electronically signed) Emergency Medicine Provider Camryn Pelaez MD 06/15/241333 documented in this encounter [facility] 06-15-2024 Hospital Discharg e instructions Camryn Pelaez MD - 06/15/2024 1:33 PM EST As discussed, please stop taking your prescribed amoxicillin completely and only take the Augmentin that you were prescribed today. Please return to the emergency department if your symptoms change or worsen. The following attachments cannot be sent through Care Everywhere.Diverticulitis (Paraguayan)documented in this encounter [facility] 06-15-2024 Physician Emergency department Note EMERGENCY DEPARTMENT ENCOUNTER Pt Name: Hussein Alston Birthdate 1985 Date of evaluation: 06/15/2024 ED Provider: Bere Pelaez MD CHIEF COMPLAINT Chief Complaint Patient presents with Pelvic Pain Sore Throat Pt tested positive for strep yesterday, has not vomited since yesterday, was started on amoxicillin yesterday HISTORY OF PRESENT ILLNESS (Location/Symptom, Timing/Onset, Context/Setting, Quality, Duration, Modifying Factors, Severity) Note limiting factors. I wore appropriate PPE for the entirety of this encounter. HPI Hussein Alston is a 38 y.o. female who presents to the emergency department with chief complaint of pelvic pain that radiates into her flank pain since last night. She endorses history of kidney stones. She denies any hematuria or dysuria. She denies concerns for STDs and denies any vaginal discharge. Of note, she states that she was diagnosed with strep pharyngitis yesterday and was started on amoxicillin yesterday, but is not at all concerned for her throat. She states that her last menstrual period was a month ago. Nursing Notes were reviewed. Limitations to history: None Outside historians: Friend REVIEW OF SYSTEMS Review of Systems Pertinent positives and negatives as per HPI. PAST MEDICAL HISTORY Past Medical History: Diagnosis Date Kidney stones SURGICAL HISTORY Past Surgical History: Procedure Laterality Date SECTION (HISTORICAL) CHOLECYSTECTOMY CURRENT MEDICATIONS Current Discharge Medication List ALLERGIES Patient has no known allergies. FAMILY HISTORY No family history on file. SOCIAL HISTORY Social History Socioeconomic History Marital status: Single Tobacco Use Smoking status: Former Types: Cigarettes Smokeless tobacco: Never Vaping Use Vaping status: Every Day Substances: Nicotine Substance and Sexual Activity Alcohol use: Yes Comment: socially Drug use: Yes Types: Marijuana Comment: rarely SCREENINGS PHYSICAL EXAM ED Triage Vitals [06/15/24 1138] Temp Heart Rate Resp BP 36.2 C (97.1 F) 96 18 132/83 SpO2 Temp Source Heart Rate Source Patient Position 100 % Temporal -- Sitting BP Location FiO2 (%) Right arm -- Physical Exam Vitals and nursing note reviewed. Constitutional: General: She is not in acute distress. Appearance: She is well-developed. HENT: Head: Normocephalic and atraumatic. Eyes: Conjunctiva/sclera: Conjunctivae normal. Cardiovascular: Rate and Rhythm: Normal rate and regular rhythm. Heart sounds: No murmur heard. Pulmonary: Effort: Pulmonary effort is normal. No respiratory distress. Breath sounds: Normal breath sounds. Abdominal: Palpations: Abdomen is soft. Tenderness: There is generalized abdominal tenderness. There is left CVA tenderness. Musculoskeletal: General: No swelling. Cervical back: Neck supple. Skin: General: Skin is warm and dry. Capillary Refill: Capillary refill takes less than 2 seconds. Neurological: Mental Status: She is alert. Psychiatric: Mood and Affect: Mood normal. DIAGNOSTIC RESULTS Procedures/EKG: Interpretation per the Radiologist below, if available at the time of this note: CT abdomen pelvis wo IV contrast Final Result Acute sigmoid diverticulitis. Small amount of free fluid in the pelvis. Report Dictated on Electronically Signed By: Alex Quintero MD Electronically Signed Date/Time: 06/15/2024 1:24 PM EST ED BEDSIDE ULTRASOUND: Performed by ED Physician - none LABS: Labs Reviewed CBC WITH AUTO DIFFERENTIAL - Abnormal Result Value Auto WBC 17.0 (*) RBC 4.24 Hemoglobin 13.5 Hematocrit 36.7 MCV 86.6 MCH 31.8 MCHC 36.8 (*) RDW 13.2 Platelets 301 MPV 10.4 nRBC 0.0 Neutrophils Relative 78.3 Lymphocytes Relative 14.3 (*) Monocytes Relative 6.2 Eosinophils Relative 0.5 Basophils Relative 0.2 Immature Grans % 0.5 Neutrophils Absolute 13.3 (*) Lymphocytes Absolute 2.4 Monocytes Absolute 1.1 (*) Eosinophils Absolute 0.1 Basophils Absolute 0.0 Immature Grans Absolute 0.1 (*) COMPREHENSIVE METABOLIC PANEL - Abnormal SODIUM 138 POTASSIUM 4.2 CHLORIDE 110 (*) CARBON DIOXIDE 23 ANION GAP 5 UREA NITROGEN 18 CREATININE 0.76 GLUCOSE 96 CALCIUM 8.9 AST (SGOT) 25 ALT 14 ALKALINE PHOSPHATASE 49 ALBUMIN 3.4 (*) BILIRUBIN, TOTAL 0.7 TOTAL PROTEIN 6.7 eGFR >90.0 COMPLETE URINALYSIS - Abnormal Color, Urine Yellow Clarity, Urine Clear pH, Urine 6.0 Leukocytes, Urine Negative Nitrite, Urine Negative Protein, Urine 20 (*) Glucose, Urine Normal Bilirubin, Urine Negative Ketones, Urine 60 (*) Urobilinogen, Urine 2 (*) Blood, Urine Negative Volume, Urine 8-12 mL RBC, Urine Negative WBC, Urine 0-2 Squamous Epithelial, Urine 3-5 Bacteria, Urine Few (*) SPECIFIC GRAVITY OF URINE (NUMERIC) 1.039 (*) LIPASE - Normal LIPASE 13 COMPLETE URINALYSIS WITH REFLEX TO CULTURE Narrative: The following orders were created for panel order Urinalysis Complete with reflex to Culture. Procedure Abnormality Status --------- ------ Complete Urinalysis[[id number]] Abnormal Final result Please view results for these tests on the individual orders. HCG QUALITATIVE URINE HCG,URINE QUAL Negative Narrative: is the most common reason for HCG in urine, although choriocarcinoma, hydatidiform mole, and certain nontrophoblastic malignancies also result in detectable urinary HCG levels. Sensitivity = 20mIU/mL. All other labs were within normal range or not returned as of this dictation. EMERGENCY DEPARTMENT COURSE and DIFFERENTIAL DIAGNOSIS/MDM: Vitals: Vitals: 06/15/24 1138 06/15/24 1312 BP: 132/83 123/69 BP Location: Right arm Right arm Patient Position: Sitting Lying Pulse: 96 72 Resp: 18 18 Temp: 36.2 C (97.1 F) TempSrc: Temporal SpO2: 100% 99% Weight: 77.1 kg (170 lb) Height: 1.499 m (4' 11) The patient presented with a chief complaint of pelvic pain and flank pain. The differential diagnosis associated with this patient's presentation includes but is not limited to: Presentation concerning for kidney stones versus pyelonephritis. She denies any vaginal discharge but still cannot rule out ovarian torsion. Cannot rule out pancreatitis versus diverticulitis versus biliary pathology versus appendicitis versus SBO. No rebound or guarding on exam, and I'm less concerned for mesenteric ischemia versus perforated viscus. Our workup consisted of ordering/reviewing: CBC, CMP, urinalysis, , lipase, CT abdomen pelvis. Blood work significant for leukocytosis of 17, likely secondary to the acute sigmoid diverticulitis found on CT abdomen pelvis. Urine demonstrating bacteria but negative for nitrites or leukocyte esterase and also negative for blood. Consideration for escalation of care with: Admission/observation admission for IV antibiotics, but the patient declines, stating that she would prefer to try outpatient therapy and will return if her symptoms change or worsen. . The patient will be discharged The patient is in agreement with this plan. ED Course as of 06/15/24 1334 TueJun 15, 2024 1230 Auto WBC(!): 17.0 [JM] 1256 Bacteria, Urine(!): Few [] 1256 RBC, Urine: Negative [] ED Course User Index [JM] Camryn Pelaez MD Diagnoses as of 06/15/24 133 Sigmoid diverticulitis Medications amoxicillin-clavulanate (Augmentin) 875-125 MG per tablet 1 tablet (has no administration in time range) ketorolac (Toradol) injection 15 mg (15 mg IntraVENous Given 06/15/24 1309) REVAL: CRITICAL CARE TIME None CONSULTS: None PROCEDURES: Unless otherwise noted below, none Procedures FINAL IMPRESSION 1. Sigmoid diverticulitis DISPOSITION Discharge 06/15/2024 01:32:20 PM [place] [facility] [place] [address] Schedule an appointment as soon as possible for a visit in 1 week DISCHARGE MEDICATIONS: Current Discharge Medication List START taking these medications Details amoxicillin-clavulanate (Augmentin) 875-125 MG tablet Take 1 tablet by mouth 2 times daily for 7 days. Qty: 14 tablet, Refills: 0 (Comment: Please note this report has been produced using speech recognition software and may contain errors related to that system including errors in grammar, punctuation, and spelling, as well as words and phrases that may be inappropriate. If there are any questions or concerns please feel free to contact the dictating provider for clarification.) Bere Pelaez MD (electronically signed) Emergency Medicine Provider Camryn Pelaez MD 06/15/24 1334 [facility] 11-16-2023 Note HNO ID: [id number] Author: ARNALDO VELAZQUEZ APRN.[employer] Service: ? Author Type: Nurse Practitioner Type: Progress Notes Filed: 11/16/2023 07:46 Note Text: Subjective HPI Nontoxic-appearing female presents urgent care chief complaint possible finger infection. Duration of symptoms 1 day. Associated symptoms pain swelling redness. Has not used any OTC medications. No known trauma. Risk factors history of nail biting. Works in childcare. Denies any other concerns. Denies chance of . No significant numbness or tingling. No decreased range of motion or function. No weakness. Past medical history prescription medications allergies reviewed. .Patient presents with: Infection: Possible infection in right hand middle finger started this morning PAST MEDICAL HISTORY Diagnosis Date Childhood asthma Noted history of childhood asthma History of smoking PAST SURGICAL HISTORY Procedure Laterality Date TONSILLECTOMY PRIMARY/SECONDARY age 7 years TYMPANOSTOMY LOCAL/TOPICAL ANESTHESIA age 7 ALLERGIES Patient has no known allergies. MEDICATIONS ofloxacin (FLOXIN) 0.3 % otic solution Use 5 Drops in both ears once daily. (Patient not taking: Reported on 11/16/2023) ciprofloxacin HCl (CILOXAN) 0.3 % ophthalmic solution Use 1 Drop in the left eye four times daily. (Patient not taking: Reported on 08/17/2023) albuterol HFA (PROAIR HFA) 90 mcg/actuation inhaler Inhale 2 Puffs as instructed every 4 hours as needed. (Patient not taking: Reported on 08/17/2023) FAMILY HISTORY Problem Relation Age of Onset Cancer Mother from cervical cancer with mets liver? Heart Mother Heart Paternal Grandfather Cancer Maternal Grandmother Asthma Brother Social History Tobacco Use Smoking status: Former Types: Cigarettes Smokeless tobacco: Never Tobacco comments: smokes 1 pack a week; has set a quite date for January 29 2012 (noted smokes) Vaping Use Vaping Use: Never used Substance Use Topics Alcohol use: Yes Comment: socially BP 124/80 Pulse 81 Temp 36.5 ?C (97.7 ?F) Resp 21 Wt 82.9 kg (182 lb 12.2 oz) LMP 03/04/2020 SpO2 99% BMI 36.91 kg/m? Review of Systems Constitutional: Negative for chills, fever and malaise/fatigue. HENT: Negative for congestion, ear discharge, ear pain, sinus pain and sore throat. Eyes: Negative for blurred vision, pain, discharge and redness. Respiratory: Negative for cough, hemoptysis, sputum production, shortness of breath, wheezing and stridor. Cardiovascular: Negative for chest pain. Gastrointestinal: Negative for abdominal pain, diarrhea, nausea and vomiting. Musculoskeletal: Negative for myalgias. Skin: Negative for itching and rash. Neurological: Negative for dizziness and headaches. Objective Physical Exam Constitutional: General: She is not in acute distress. Appearance: She is not toxic-appearing. HENT: Head: Normocephalic. Nose: Nose normal. Eyes: Pupils: Pupils are equal, round, and reactive to light. Cardiovascular: Rate and Rhythm: Normal rate. Pulmonary: Effort: Pulmonary effort is normal. No respiratory distress. Musculoskeletal: Hands: Cervical back: Normal range of motion. Comments: Erythema edema noted. Neurovascular intact. No weaknesses. No pain with palpation of her DIP PIP or MCP joint. Skin: General: Skin is warm and dry. Neurological: General: No focal deficit present. Mental Status: She is alert. Areas cleansed. 18-gauge needle and use peers cuticle fold. Some purulent drainage return noted. Tolerated well. Dressing applied. ASSESSMENT/PLAN: 1. Paronychia of finger, right - ICD9: 681.02, ICD10: L03.011 Diagnosed Paronychia. Mupirocin Augmentin sent to pharmacy. Warm soaks recommended. Red flags reevaluation discussed. Patient was educated on supportive therapies. Patient will follow up with primary care provider as needed. Patient was instructed to immediately proceed to emergency room for any new, worsening, or symptoms lasting longer than anticipated. The patient's clinical presentation is otherwise unremarkable at this time. Based on exam and clinical finding, the patient is stable for discharge. Plan of care was discussed with patient. Patient verbalizes understanding and agrees to plan of care. This note was generated using [employer] software. It may contain errors in wording, punctuation, or spelling. Arnaldo Velazquez APRN.[facility] 11-16-2023 History of Presen t illness Narrative Images from the original note were not included. Subjective HPI Nontoxic-appearing female presents urgent care chief complaint possible finger infection. Duration of symptoms 1 day. Associated symptoms pain swelling redness. Has not used any OTC medications. No known trauma. Risk factors history of nail biting. Works in childcare. Denies any other concerns. Denies chance of . No significant numbness or tingling. No decreased range of motion or function. No weakness. Past medical history prescription medications allergies reviewed. .Patient presents with: Infection: Possible infection in right hand middle finger started this morning PAST MEDICAL HISTORY Diagnosis Date Childhood asthma Noted history of childhood asthma History of smoking PAST SURGICAL HISTORY Procedure Laterality Date TONSILLECTOMY PRIMARY/SECONDARY <AGE 12 age 7 years TYMPANOSTOMY LOCAL/TOPICAL ANESTHESIA age 7 ALLERGIES Patient has no known allergies. MEDICATIONS ofloxacin (FLOXIN) 0.3 % otic solution Use 5 Drops in both ears once daily. (Patient not taking: Reported on 11/16/2023) ciprofloxacin HCl (CILOXAN) 0.3 % ophthalmic solution Use 1 Drop in the left eye four times daily. (Patient not taking: Reported on 08/17/2023) albuterol HFA (PROAIR HFA) 90 mcg/actuation inhaler Inhale 2 Puffs as instructed every 4 hours as needed. (Patient not taking: Reported on 08/17/2023) FAMILY HISTORY Problem Relation Age of Onset Cancer Mother from cervical cancer with mets liver? Heart Mother Heart Paternal Grandfather Cancer Maternal Grandmother Asthma Brother Social History Tobacco Use Smoking status: Former Types: Cigarettes Smokeless tobacco: Never Tobacco comments: smokes 1 pack a week; has set a quite date for January 29 2012 (noted smokes) Vaping Use Vaping Use: Never used Substance Use Topics Alcohol use: Yes Comment: socially BP 124/80 Pulse 81 Temp 36.5 C (97.7 F) Resp 21 Wt 82.9 kg (182 lb 12.2 oz) LMP 03/04/2020 SpO2 99% BMI 36.91 kg/m Review of Systems Constitutional: Negative for chills, fever and malaise/fatigue. HENT: Negative for congestion, ear discharge, ear pain, sinus pain and sore throat. Eyes: Negative for blurred vision, pain, discharge and redness. Respiratory: Negative for cough, hemoptysis, sputum production, shortness of breath, wheezing and stridor. Cardiovascular: Negative for chest pain. Gastrointestinal: Negative for abdominal pain, diarrhea, nausea and vomiting. Musculoskeletal: Negative for myalgias. Skin: Negative for itching and rash. Neurological: Negative for dizziness and headaches. Objective Physical Exam Constitutional: General: She is not in acute distress. Appearance: She is not toxic-appearing. HENT: Head: Normocephalic. Nose: Nose normal. Eyes: Pupils: Pupils are equal, round, and reactive to light. Cardiovascular: Rate and Rhythm: Normal rate. Pulmonary: Effort: Pulmonary effort is normal. No respiratory distress. Musculoskeletal: Hands: Cervical back: Normal range of motion. Comments: Erythema edema noted. Neurovascular intact. No weaknesses. No pain with palpation of her DIP PIP or MCP joint. Skin: General: Skin is warm and dry. Neurological: General: No focal deficit present. Mental Status: She is alert. Areas cleansed. 18-gauge needle and use peers cuticle fold. Some purulent drainage return noted. Tolerated well. Dressing applied. ASSESSMENT/PLAN: 1. Paronychia of finger, right - ICD9: 681.02, ICD10: L03.011 Diagnosed Paronychia. Mupirocin Augmentin sent to pharmacy. Warm soaks recommended. Red flags reevaluation discussed. Patient was educated on supportive therapies. Patient will follow up with primary care provider as needed. Patient was instructed to immediately proceed to emergency room for any new, worsening, or symptoms lasting longer than anticipated. The patient's clinical presentation is otherwise unremarkable at this time. Based on exam and clinical finding, the patient is stable for discharge. Plan of care was discussed with patient. Patient verbalizes understanding and agrees to plan of care. This note was generated using [employer] software. It may contain errors in wording, punctuation, or spelling. Arnaldo Velazquez APRN.[facility] documented in this encounter [facility] 10-07-2023 History of Presen t illness Narrative This note was created using [employer]. Subjective Hussein Lee is a 38 year old female. HPI by patient: Hussein is a 38 year old presenting to the office with the complaint of ear pain Started approximately yesterday. Hx of ear infections and tubes when she was younger. Has an ear infection last month Associated symptoms include R ear pain, hurts down her neck. No other URI symptoms. No recent swimming Denies any other concerns Covid Immunization Dates Overdue - Covid-19 Vaccine ( season) Never done No completion, postpone, frequency change, or communication history exists for this topic. ALLERGIES No Known Allergies Family History Reviewed Including Cardiac Diseases, Psychiatric Diseases, & Substance Abuse Problem: Cancer Relation: Mother Age of Onset: (Not Specified) Comment: from cervical cancer with mets liver? Problem: Heart Relation: Mother Age of Onset: (Not Specified) Problem: Heart Relation: Paternal Grandfather Age of Onset: (Not Specified) Problem: Cancer Relation: Maternal Grandmother Age of Onset: (Not Specified) Problem: Asthma Relation: Brother Age of Onset: (Not Specified) Social History Tobacco Use Smoking status: Former Types: Cigarettes Smokeless tobacco: Never Tobacco comments: smokes 1 pack a week; has set a quite date for January 29 2012 (noted smokes) Vaping Use Vaping Use: Never used Alcohol use: Yes Comment: socially Review of Systems Constitutional: Negative for chills and fever. HENT: Positive for ear pain. Negative for congestion, ear discharge, rhinorrhea and sore throat. Respiratory: Negative for cough. Cardiovascular: Negative for chest pain. Allergic/Immunologic: Negative for immunocompromised state. Hematological: Negative for adenopathy. Objective Ht 149.9 cm (4' 11) Wt 87.7 kg (193 lb 5.5 oz) LMP 03/04/2020 BMI 39.05 kg/m Physical Exam Vitals and nursing note reviewed. HENT: Right Ear: Tympanic membrane and ear canal normal. Swelling and tenderness present. Left Ear: Tympanic membrane and ear canal normal. Nose: Nose normal. No congestion or rhinorrhea. Mouth/Throat: Pharynx: Uvula midline. No oropharyngeal exudate or posterior oropharyngeal erythema. Cardiovascular: Rate and Rhythm: Normal rate and regular rhythm. Heart sounds: Normal heart sounds. Pulmonary: Effort: Pulmonary effort is normal. Breath sounds: Normal breath sounds. Lymphadenopathy: Cervical: No cervical adenopathy. Skin: General: Skin is warm and dry. Neurological: Mental Status: She is alert and oriented to person, place, and time. Assessment and Plan ASSESSMENT/PLAN: 1. Acute otitis externa of both ears, unspecified type - ICD9: 380.10, ICD10: H60.503 - Follow up ENT - OFLOXACIN 0.3 % EAR DROPS Corinne Lyons APRN.[facility] Medical Decision Making: Problems: Moderate: New problem with uncertain prognosis Data: Unique source(s) for external note(s) reviewed: 1 Risk: Moderate: Drug management Medical Decision Making Level: 4 - Moderate documented in this encounter [facility] 08-17-2023 Instructions Tania Quach PA - 08/17/2023 4:12 PM EST PHARYNGITIS PATIENT INSTRUCTIONS DESCRIPTION: Inflammation and infection of the pharynx that can be caused by a variety of germs. SIGNS AND SYMPTOMS: -Sore throat. -Swallowing difficulty. -Tickle or lump in the throat. -Fever. -Swollen glands in the neck (sometimes). -Throat may be red or covered with a grayish membrane (sometimes). -Generalized aching. CAUSES: Infection from bacteria, viruses or fungi. PREVENTIVE MEASURES: -Avoid close contact with anyone with a sore throat. -Keep immunizations, including diphtheria, up to date. TREATMENT: -Laboratory throat culture and blood count may be done to determine type of infection. -Home care is usually sufficient. -Use gargles to relieve throat pain. Prepare double strength tea, hot or cold, or a salt-water solution (1 teaspoon salt in 8 oz. warm water). Use to gargle as often as you wish. -Use a cool-mist ultrasonic humidifier to increase air moisture. This will relieve the dry, tight feeling in the throat. Clean humidifier daily. -If the glands are large and tender, apply moist, warm soaks at least 4 times a day for 30 to 60 minutes. The compresses will be more effective if they are kept warm. Be careful not to burn the skin. -Replace your toothbrush. It may be harboring germs. -Until infection is gone, don't share washcloths; or food. MEDICATIONS: -For minor discomfort you may use non-prescription drugs such as acetaminophen. Don't give aspirin to a child for any viral illness. -Non-prescription throat lozenges may help ease discomfort. -Antibiotics or antifungal agents to fight bacterial or fungal infections. Be sure to finish entire course of prescribed antibiotics to avoid complications. ACTIVITY: Limited activity is necessary until symptoms disappear. DIET: Extra fluids are necessary. Drink at least 8 glasses of fluid daily, more for high fevers. If swallowing solid food is painful, try a liquid or soft diet for a few days. NOTIFY OFFICE: -The following occur during treatment: Breathing or swallowing difficulty. Fever; severe headache. Thick mucus drainage from the nose. Productive cough that is discolored. Skin rash. Dark urine. Chest pain. documented in this encounter [facility] 08-17-2023 History of Presen t illness Narrative This note was created using [employer]. Subjective Hussein Lee is a 38 year old female. HPI 38-year-old female presents for sore throat, sinus congestion, sinus pressure, headache for about 3 days. Patient has also had a dry cough. She denies any fevers. 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 No vomiting or diarrhea. Still able to eat and drink. She has been taking Tylenol and Motrin, but states that they are not really helping with her throat pain. PAST MEDICAL HISTORY Diagnosis Date Childhood asthma Noted history of childhood asthma History of smoking PAST SURGICAL HISTORY Procedure Laterality Date TONSILLECTOMY PRIMARY/SECONDARY <AGE 12 age 7 years TYMPANOSTOMY LOCAL/TOPICAL ANESTHESIA age 7 ALLERGIES Patient has no known allergies. MEDICATIONS ciprofloxacin HCl (CILOXAN) 0.3 % ophthalmic solution Use 1 Drop in the left eye four times daily. (Patient not taking: Reported on 08/17/2023) albuterol HFA (PROAIR HFA) 90 mcg/actuation inhaler Inhale 2 Puffs as instructed every 4 hours as needed. (Patient not taking: Reported on 08/17/2023) FAMILY HISTORY Problem Relation Age of Onset Cancer Mother from cervical cancer with mets liver? Heart Mother Heart Paternal Grandfather Cancer Maternal Grandmother Asthma Brother Social History Tobacco Use Smoking status: Former Types: Cigarettes Smokeless tobacco: Never Tobacco comments: smokes 1 pack a week; has set a quite date for January 29 2012 (noted smokes) Vaping Use Vaping Use: Never used Substance Use Topics Alcohol use: Yes Comment: socially Review of Systems Constitutional: Negative for chills and fever. HENT: Positive for congestion, sinus pressure, sinus pain and sore throat. Negative for ear pain. Respiratory: Positive for cough. Negative for shortness of breath. Cardiovascular: Negative for chest pain. Gastrointestinal: Negative for diarrhea and vomiting. Neurological: Positive for headaches. Objective BP 122/80 Pulse 74 Temp 36.3 C (97.4 F) Resp 16 Wt 91.2 kg (201 lb) LMP 03/04/2020 SpO2 100% Physical Exam Vitals and nursing note reviewed. Constitutional: General: She is not in acute distress. Appearance: Normal appearance. She is not toxic-appearing. HENT: Right Ear: Ear canal normal. A middle ear effusion is present. Tympanic membrane is bulging. Left Ear: Tympanic membrane and ear canal normal. Ears: Comments: R purulent middle ear effusion. TM bulging. Nose: Right Sinus: Maxillary sinus tenderness present. Left Sinus: Maxillary sinus tenderness present. Mouth/Throat: Mouth: Mucous membranes are moist. Pharynx: Uvula midline. Posterior oropharyngeal erythema present. No oropharyngeal exudate. Comments: + Tonsillectomy Eyes: Conjunctiva/sclera: Conjunctivae normal. Cardiovascular: Rate and Rhythm: Normal rate and regular rhythm. Pulmonary: Effort: Pulmonary effort is normal. Breath sounds: Normal breath sounds. Neurological: Mental Status: She is alert. Assessment and Plan ASSESSMENT/PLAN: 1. Sore throat - ICD9: 462, ICD10: J02.9 (primary diagnosis) - suspect viral - Group A strep molecular testing negative - Discussed supportive care treatment with fluids, rest and analgesia. - The patient may also use warm salt water gargles, throat lozenges and/or OTC throat spray as needed. - STREP A MOLECULAR (POC) 2. URI, acute - ICD9: 465.9, ICD10: J06.9 - Discussed viral etiology and rationale for treatment. - Symptomatic treatment with prn analgesia - Supportive care with fluids and rest 3. Acute otitis media, right - ICD9: 382.9, ICD10: H66.91 - Will begin treatment with Amoxicillin for 7 days - Supportive care with plenty of fluids, rest, and analgesia prn. Diagnosis and treatment plan were discussed and questions were answered to the patient's satisfaction. Pt acknowledged understanding of concepts and follow up plan. Specific signs and symptoms that would indicate the need for higher level of care were discussed in detail warranting prompt ER evaluation. MARCELLO Polo documented in this encounter [facility] 08-24-2022 Miscellaneous Notes sent Patient calling to state that medication you ordered for her stewart is out of stock at her pharmacy and wants to know [facility]please review and advise.Natividad Ruaon LPN documented in this encounter [facility] 08-24-2022 Miscellaneous Notes Addended by: ALEX SULLIVAN on: 08/24/2022 06:41 PM Modules accepted: Orders documented in this encounter [facility] 08-24-2022 Instructions Alex Sullivan APRN.[facility] - 08/24/2022 4:25 PM EST CONJUNCTIVITIS GENERAL INFORMATION: Conjunctivitis is also known as pink eye. It is an irritation of the underside of the eyelid and the white part of the eye. Conjunctivitis can be caused by infection, chemical irritation, or allergy. If infectious, it is very contagious. INSTRUCTIONS: The doctor has prescribed antibiotic drops or ointment. Use them as prescribed. Do not touch the dropper to the eye. Throw out the medication after completing treatment. If the doctor only prescribed the medication to be placed in one eye, and the other eye starts to bother you with the same symptoms, you may treat it in the same fashion. To ease discomfort, apply a warm or cool clean washcloth to your eye several times a day for 10 to 20 minutes. Gently wipe away discharge from the eyes with tissues. Wash your hands often with soap and use paper towels to dry them. Do not share towels, washcloths, or pillows. This could spread infection. Do not use eye make-up until the infection has resolved. Keep contact lenses out of eyes until the irritation is gone. Discard any eye make-up which you may have contaminated before the infection was diagnosed, and any eye make-up older than one year. Children should not return to school or daycare until the eye is no longer pink. Do not drive or operate machinery if your vision is blurred. Wear sunglasses if your eyes are sensitive to the light. CONTACT YOUR DOCTOR IF YOU OR YOUR CHILD NOTICE: *The eye is still pink 3 days after starting treatment with medicine. *Pain in the eye increases. *The redness is spreading. *Vision becomes blurred. *You have a temperature over 100.5 F (38 C). documented in this encounter [facility] 08-24-2022 History of Presen t illness Narrative Subjective HPI HPI Hussein Lee is a 37 year old female who presents today for CC of left eye redness, drainage. This started 1 day ago. Has tried nothing for relief. Symptoms are worsened by nothing. Risk factors wears contacts. .Patient presents with: Eye Problem: Left eye discharge and discomfort x 1 day PAST MEDICAL HISTORY Diagnosis Date Childhood asthma Noted history of childhood asthma History of smoking PAST SURGICAL HISTORY Procedure Laterality Date TONSILLECTOMY PRIMARY/SECONDARY <AGE 12 age 7 years TYMPANOSTOMY LOCAL/TOPICAL ANESTHESIA age 7 ALLERGIES Patient has no known allergies. MEDICATIONS albuterol HFA (PROAIR HFA) 90 mcg/actuation inhaler Inhale 2 Puffs as instructed every 4 hours as needed. ciprofloxacin HCl (CILOXAN) 0.3 % ophthalmic solution Use 1 Drop in the left eye four times daily. FAMILY HISTORY Problem Relation Age of Onset Cancer Mother from cervical cancer with mets liver? Heart Mother Heart Paternal Grandfather Cancer Maternal Grandmother Asthma Brother Social History Tobacco Use Smoking status: Former Types: Cigarettes Smokeless tobacco: Never Tobacco comments: smokes 1 pack a week; has set a quite date for January 29 2012 (noted smokes) Vaping Use Vaping Use: Never used Substance Use Topics Alcohol use: Yes Comment: socially Review of Systems Constitutional: Negative for chills and fever. HENT: Negative for ear discharge, ear pain and sore throat. Eyes: Positive for discharge and redness. Negative for blurred vision, double vision, photophobia and pain. Neurological: Negative for headaches. Objective Blood pressure 128/78, pulse 80, temperature 37.1 C (98.8 F), temperature source Tympanic, resp. rate 16, weight 95.7 kg (211 lb), last menstrual period 03/04/2020, SpO2 98 %. Physical Exam Constitutional: General: She is not in acute distress. Appearance: She is not toxic-appearing. HENT: Right Ear: Hearing, tympanic membrane and external ear normal. Left Ear: Hearing, tympanic membrane, ear canal and external ear normal. Nose: No mucosal edema. Mouth/Throat: Pharynx: Uvula midline. Eyes: General: Right eye: No discharge. Left eye: Discharge present. Conjunctiva/sclera: Right eye: Right conjunctiva is not injected. Left eye: Left conjunctiva is injected. Lymphadenopathy: Cervical: Right cervical: No superficial cervical adenopathy. Left cervical: No superficial cervical adenopathy. Comments: No cervical lymphadenopathy bilaterally Neurological: Mental Status: She is oriented to person, place, and time. ASSESSMENT/PLAN: 1. Bacterial conjunctivitis - ICD9: 372.39, 041.9, ICD10: H10.9 Bacterial - see medication orders - course and contagiousness issues discussed, including hand washing. - Instructed to call if high fever, development of periorbital redness or swelling, eye pain, visual changes, concerns or if symptoms persist. - CIPROFLOXACIN 0.3 % EYE DROPS Alex Sullivan APRN.CNP documented in this encounter [facility] 02-23-2022 Miscellaneous Notes Patient given results and verbalized understanding of instructions given. Perla Velásquez Positive for covid follow CDC guidelines. 5 days of quarantine from start of symptoms then 5 days of masking. If symptoms worsen follow up Thank you documented in this encounter [facility] Evaluation note Diagnosis Bacterial conjunctivitis- Primary Other conjunctivitis [facility] Diagnosis Sore throat- Primary Acute pharyngitis URI, acute Acute upper respiratory infections of unspecified site Acute otitis media, right Unspecified otitis media [facility] Diagnosis Paronychia of finger, right- Primary documented in this encounter [facility] note* Diagnosis Acute otitis externa of both ears, unspecified type- Primary documented in this encounter [facility] note* Diagnosis Sigmoid diverticulitis- Primary Diverticulitis of colon (without mention of hemorrhage) [facility] Diagnosis Acute cough- Primary URI, acute Acute upper respiratory infections of unspecified site Acute cough documented in this encounter [facility] note* Diagnosis Acute cough documented in this encounter [facility] Summary Purpose Family History No Family History Records FoundNo Family History Records FoundNo Family History Records Found Advance Directives No Advanced Directives Records FoundNo Advanced Directives Records FoundNo Advanced Directives Records Found Health Concerns Infection Onset Date Last Indicated Resolved Time COVID-19 Rule-Out 02/22/2022 02/22/2022 02/23/2022 11:59 AM EDT COVID-19 Confirmed 02/22/2022 02/22/2022 Additional Source Comments INFORMATION SOURCE (unrecogn ized section and content) DATE CREATED AUTHOR 12/27/2017 [facility] DATE CREATED AUTHOR AUTHOR'S ORGANIZ ATION 06/19/2024 [facility] DATE CREATED AUTHOR AUTHOR'S ORGANIZ ATION 11/07/2024 [facility] Source Comments (unrecognize d section and content) In the event this informatio n is protected by the Federal Confidentiality of Alcohol and Drug Abuse Patient Records regulations: The Federal rules restrict any use of the information to criminally investigate or prosecute any alcohol or drug abuse patient.[facility] the event this information is protected by the Federal Confidentiality of Alcohol and Drug Abuse Patient Records regulations: The Federal rules restrict any use of the information to criminally investigate or prosecute any alcohol or drug abuse patient.[facility] the event this information is protected by the Federal Confidentiality of Alcohol and Drug Abuse Patient Records regulations: The Federal rules restrict any use of the information to criminally investigate or prosecute any alcohol or drug abuse patient.[facility] the event this information is protected by the Federal Confidentiality of Alcohol and Drug Abuse Patient Records regulations: The Federal rules restrict any use of the information to criminally investigate or prosecute any alcohol or drug abuse patient.[facility] the event this information is protected by the Federal Confidentiality of Alcohol and Drug Abuse Patient Records regulations: The Federal rules restrict any use of the information to criminally investigate or prosecute any alcohol or drug abuse patient.[facility] the event this information is protected by the Federal Confidentiality of Alcohol and Drug Abuse Patient Records regulations: The Federal rules restrict any use of the information to criminally investigate or prosecute any alcohol or drug abuse patient.[facility] the event this information is protected by the Federal Confidentiality of Alcohol and Drug Abuse Patient Records regulations: The Federal rules restrict any use of the information to criminally investigate or prosecute any alcohol or drug abuse patient.[facility] the event this information is protected by the Federal Confidentiality of Alcohol and Drug Abuse Patient Records regulations: The Federal rules restrict any use of the information to criminally investigate or prosecute any alcohol or drug abuse patient.[facility] Reason for Visit (unrecogniz ed section and content) Reason Comments Results Reason Comments Eye Problem Left eye discharge a nd discomfort x 1 day Reason Comments Medication Problem Reason Comments Sinus Problem sinus pressure, drai nage, sore throat and headache x 3 days Reason Comments Infection Possible infection i n right hand middle finger started this morning Reason Comments Ear Problem Left ear pain, has b een going on couple days Reason Comments Pelvic Pain Sore Throat Pt tested positive f or strep yesterday, has not vomited since yesterday, was started on amoxicillin yesterday Reason Comments Cough Chest congestion, R side chest discomfort with cough, bilateral ear pain x3 days Scheduled Active and Recently Administ ered Medications (unrecognized section and content) Medication Order 06/13/2024 06/14/2024 06/15/2024 amoxicillin-clavulanate (Augmentin) 875-125 MG per tablet 1 tablet (COMPLETED) 1 tablet (875 mg), Oral, Once, On Tue06/15/24 at 1335, For 1 dose, Suspected Indication (Select all that apply): Intra-Abdominal Infection 1342 (Given - Provid er: Subha Shoemaker RN) ketorolac (Toradol) injection 15 mg (COMPLETED) 15 mg, IntraVENous, Once, On Tue06/15/24 at 1300, For 1 dose 1309 (Given - Provid er: Subha Shoemaker RN) FOR RECORDS PERTAINING TO PATIENTS WHO ARE OR HAVE BEEN ENROLLED IN A CHEMICAL DEPENDENCY/SUBSTANCEABUSE PROGRAM, SOME INFORMATION MAY BE OMITTED. This clinical summary was aggregated from multiple sources. Caution should be exercised in using it in the provision of clinical care. This summary normalizes information from multiple sources, and as a consequence, information in this document may materially change the coding, format and clinical context of patient data. In addition, data may be omitted in some cases. CLINICAL DECISIONS SHOULD BE BASED ON THE PRIMARY CLINICAL RECORDS. [email or web address] provides no warranty or guarantee of the accuracy or completeness of information in this document.
--- NOTE | 2025-02-05 20:10 | RAD_ITS ---
PROCEDURE: FOOT MIN 3 VIEWS 02/05/2025 REASON FOR EXAM: PAIN AFTER DROPPING CUP ONTO FOOT TECHNIQUE: FOOT MIN 3 VIEWS COMPARISON: Unremarkable. FINDINGS: Bones: No acute bony abnormalities. Joints: No dislocation. Soft tissues: No soft tissue abnormalities. RAD/Foot min 3 Views IMPRESSION: No acute bony abnormalities. Reading Location: [id number]
[2025-02-05 20:31] VITALS: BP 144/91; PULSE 68; RESP 15; TEMP 36.1; O2SAT 99
== END 2025-02-05 20:36 | disposition home or self-care (01) ==
PROVIDERS: Emergency Provider Emergency Medicine; PCP Internal Medicine; Visit Provider Emergency Medicine
DX: S90.32XA Contusion of left foot, initial encounter (principal); Z87.891 Personal history of nicotine dependence; X58.XXXA Exposure to other specified factors, initial encounter
CPT/HCPCS: 73630; 99282

== ENCOUNTER 2025-03-17 09:36 | Emergency (ER) | payer MEDICAID, SELFPAY ==
[2025-03-17 09:37] VITALS: BP 141/88; PULSE 97; RESP 16; TEMP 36.7; O2SAT 99; BMI 36.5
--- NOTE | 2025-03-17 09:48 | ED.VIS.LOWEX ---
HPI History of Present Illness Chief Complaint: Lower Extremity Injury Informant: patient Narrative Narrative: 39-year-old female who injured her right foot last night when she was in [employer] parking lot and somehow lost her balance as she was trying to jump or step over a square curb, smacking her right foot on the front face of it. She is not sure the exact mechanism or if her ankle twisted she thinks it did. She did not fall and injure anything else. She been able to bear weight but just barely and has significant pain throughout the lateral aspect of her right foot mostly. PFSH PFSH Home Medications ?Medication ?Instructions ?Recorded ?Last Taken ?Type oxycodone-acetaminophen 5 mg-325 1 - 2 tab PO Q4H PRN PRN Pain #20 04/27/14 Unknown Rx mg tablet tabs tramadol 50 mg tablet 50 mg PO Q6H PRN PRN Pain 04/27/14 Unknown History hydrocodone-acetaminophen 5-325mg 1 - 2 tab PO Q4H PRN PRN Pain ##12 10/18/15 Unknown Rx 5mg-325mg Allergy/AdvReac Type Severity Reaction Status Date / Time No Known Allergies Allergy Verified 03/17/25 09:39 Social History Smoking Status: Former smoker ROS ROS ED Constitutional Constitutional ED: Denies chills or fever(s) Musculoskeletal Musculoskeletal: Reports extremity pain; Denies neck pain Integumentary Reports Abrasions and wounds; Denies rash Neurologic Neurologic: Denies paresthesias or weakness EXAM Physical Exam Const Vital Signs: 03/17/25 09:37 Temperature 98.0 F Temperature Source Oral Pulse Rate 97 Respiratory Rate 16 Blood Pressure 141/88 H Blood Pressure Mean 105 Pulse Ox 99 Oxygen Delivery Method Room Air Positive well nourished and well developed General Appearance ED: well developed and NAD Neck full ROM and supple Back/Spine normal ROM and normal to inspection Extremity Extremity Narrative: Right foot and ankle: Limited range of motion of the ankle due to pain but able to plantarflex and dorsiflex a little. The lateral malleolus is tender but not swollen, the medial malleolus is nontender. Other than the 1st and 2nd rays, and the third toe which is nontender, the rest of the entire foot is tender to palpation. This includes the calcaneus which appears atraumatic and without any swelling. There is no significant swelling anywhere else in the foot, but most of her pain and tenderness focuses around the 4th and 5th metatarsals. There is a minor abrasion to the dorsum of the fifth toe, and a larger abrasion which may actually be an avulsion that is already scabbing at the dorsal aspect of the fifth MTPJ. Otherwise, extremity exam is benign and full range of motion. Neuro oriented x3, no focal motor deficits and no sensory deficits noted Neuro Narrative: Antalgic gait but able without assistance. Sensorium / Orientation: alert Psych mental status grossly normal and thought process normal Skin Rashes: no rashes MDM MDM MDM Narrative Medical decision making narrative: Given her exam I obtain three-view x-ray series of the right ankle and the right foot. On my interpretation the ankle is normal and the right foot appears to show a nondisplaced fracture through the lateral cuneiform but no other bones. Radiology read as unremarkable, I discussed with Dr. Brumfield the radiologist to interpreted these films, and he agrees with my interpretation and placed an addendum. I discussed with podiatry Dr. Pizano, he advises a walking boot with nonweightbearing status with crutches for the first several days to a week and then partial weightbearing as tolerated and he will see her as an outpatient. The patient was offered analgesics even Tylenol, she declined them now and prescription. We also discussed the epidermal avulsion that she has proximal to the fifth toe as well as the other abrasions, nothing looks infected right now but I recommend that she keep these clean and dressed with antibiotic ointment. Radiography Diagnostic Testing: Clinical Impression(s) from Imaging Studies Ankle X-Ray 03/17/25 09:55 IMPRESSION: Unremarkable right ankle Reading Location: [facility] Foot X-Ray 03/17/25 09:55 IMPRESSION: Unremarkable right foot Reading Location: [facility] ADDENDUM by Dr. Scott Brumfield MD on 03/17/25 at 1106 Further evaluation of the study was performed after consultation with the ER physician. There is a nondisplaced fracture in the lateral cuneiform with associated soft tissue swelling. Reading Location: [id number] Management Discussion w/another healthcare provider: Machine Sizer and Radiologist Discharge Plan Triage Chief Complaint: Lower Extremity Injury ED Provider: Artis Cao Dx/Rx/DC Orders Clinical Impression: Closed nondisplaced fracture of lateral cuneiform of right foot, Sprain of ankle, right, Avulsion of skin of right foot, Abrasion of toe of right foot Instructions: ED Fracture, Foot Prescriptions: No Action tramadol 50 MG tablet 50 mg PO Q6H PRN PRN (Reason: Pain) Patient Comments: TAKE 1 TABLET BY MOUTH EVERY 6 HOURS NEEDED oxycodone-acetaminophen 1 TABLET tablet 1 - 2 tab PO Q4H PRN PRN (Reason: Pain) Qty: 20 0RF hydrocodone-acetaminophen 1 TABLET tablet 1 - 2 tab PO Q4H PRN PRN (Reason: Pain) Qty: 12 0RF Primary Care Provider: Care Physician,No Primary Referrals: Jose Pizano DPM [Med Staff - Active Staff] - As soon as possible Activity Restrictions/Additional Instructions: Try to limit how much weight you are putting on your right foot for the first week to allow the area to rest and the swelling to go down. Elevate when you are resting is much as possible, if you are laying down or bathing/showering you may come out of the boot. Print Language: B[place] Disposition Disposition: Home, Self Care
--- NOTE | 2025-03-17 09:55 | RAD_ITS ---
PROCEDURE: FOOT MIN 3 VIEWS 03/17/2025 REASON FOR EXAM: INJURY TECHNIQUE: Procedure Code: RADFO Modality: DX Procedure: FOOT MIN 3 VIEWS Laterality: Right COMPARISON: None FINDINGS: Bones: No demonstrated fracture or suspicious osseous lesion Joints: Joint spaces well-preserved Soft tissues: No foreign body or suspicious soft tissue swelling Other: RAD/Foot min 3 Views IMPRESSION: Unremarkable right foot Reading Location: [id number]
--- NOTE | 2025-03-17 09:55 | RAD_ITS ---
PROCEDURE: ANKLE MIN 3 VIEWS 03/17/2025 REASON FOR EXAM: Pain and swelling TECHNIQUE: Procedure Code: RADCARLOS Modality: DX Procedure: ANKLE MIN 3 VIEWS Laterality: COMPARISON: Right FINDINGS: Bones: No demonstrated fracture or suspicious osseous lesion Joints: Ankle mortise well-preserved. Soft tissues: No suspicious soft tissue swelling or foreign body Other: RAD/Ankle min 3 Views IMPRESSION: Unremarkable right ankle Reading Location: [id number]
--- OUTSIDE RECORDS SUMMARY | 2025-03-17 10:40 | XMS RPT_ITS | CCD ---
Author Organization [facility] Care Team Providers Care Manager Actuarial Name Role Phone KAPRALY, ISAURA E Unavailable [...] BAZAN Attending Unavailable HAYDE BAZAN Referring Unavailable Steve PALACIOS, Dr. Kimi Jacques Primary Care Provider Dr. Buddy Diop DO Emergency Provider [phone] Kimi Wilson Primary Care Unavailable Buddy Diop Attending Unavailable Medications Current Medications Medication Drug Class(es) Dates Sig (Normalized) Sig (Original) acetaminophen 325 mg / HYDROcodone bitartrate 5 mg oral tablet (1 source) Opioid Agonist Start: 10-18-2015 Hydrocodone-Aceta minophen 1 TABLET tablet Active 1 - 2 {tbl} PO EVERY 4 HOURS NEEDED as needed for Pain October 18, 2015 12:00am acetaminophen 325 mg / oxyCODONE hydrochloride 5 mg oral tablet (1 source) Opioid Agonist Start: 04-27-2014 Oxycodone-Acetami nophen 1 TABLET tablet Active 1 - 2 {tbl} PO EVERY 4 HOURS NEEDED as needed for Pain April 27, 2014 12:00am [id number] actuat albuterol 0.09 mg/actuat metered dose [...] Comment on above: Take 5 tablets by mo ut once daily for 1 day, THEN 4 tablets once daily for 1 day, THEN 3 tablets once daily for 1 day, THEN 2 tablets once daily for 1 day, THEN 1 tablet once daily for 1 day. traMADol hydrochloride 50 mg oral tablet (1 source) Opioid Agonist Start: 04-27-2014 take 1 tablet by mouth every six hours as needed for pain Tramadol 50 MG tablet Active 50 mg PO EVERY 6 HOURS NEEDED as needed for Pain April 27, 2014 12:00am Completed/Discontinued Medications Medication Drug Class(es) Dates Sig [...] Bacterial conjunctivitis; Translations: [Unspecified conjunctivitis] Episodic Other connective tissue disease (1 source) Pain in left foot; Translations: [Pain in left foot] Onset: 02-11-2025 Episodic Other lower respiratory disease (2 sources) [...] Test Name Value Interpretation Reference Range Facility Emergency Department Summary on 02-05-2025 Emergency Department Summary [facility] Medical Records Department [address] [place] [id number] Emergency Department Summary 02/05/25 MR#: [id number] Acct: [id number] Name: HUSSEIN LEE Rep #: [id number] : 1985 39 From: Buddy Diop DO PCP: Dr. Kimi Wilson MD Status:REG ER Location: ED HPI History of Present Illness Chief Complaint: Lower Extremity Injury PFSH PFSH Medical History no medical history Home Medications ???Medication ???Instructions ???Recorded ???Last Taken ???Type oxycodone-acetaminoph en 5 mg-325 1 - 2 tab PO Q4H PRN PRN Pain #20 04/27/14 Unknown Rx mg tablet tabs tramadol 50 mg tablet 50 mg PO Q6H PRN PRN Pain 04/27/14 Unknown History hydrocodone-acetamino phen 5-325mg 1 - 2 tab PO Q4H PRN PRN Pain ##1 2 10/18/15 Unknown Rx 5mg-325mg Allergy/AdvReac Type Severity Reaction Status Date / Time No Known Allergies Allergy Verified 02/05/25 19:45 Family History no significant family his Surgical History no surgical history Social History Smoking Status: Former smoker EXAM Physical Exam Const Vital Signs: 02/05/25 19:45 Temperature 97 F L Temperature Source Temporal Pulse Rate 68 Respiratory Rate 15 Blood Pressure 144/91 H Blood Pressure Mean 108 Pulse Ox 99 Oxygen Delivery Method Room Air [facility] Narrative Medical decision making narrative: HISTORY OF PRESENT ILLNESS: Chief complaint: Left foot injury 39-year-old female presents after left foot pain after dropping a standstill cup of water on her left foot REVIEW OF SYSTEMS: Pertinent positives: Left foot pain Pertinent negatives: Loss of sensation PHYSICAL EXAM: Nursing triage notes reviewed, Vital signs reviewed Constitutional: please see mdm Extremities: No edema, compartments are soft Neuro: Intact sensation L1-S1 dermatomal distributions. Intact 5/5 strength in hip flexion (T12- L3). Knee extension (L2-L4). Ankle dorsiflexion (L4-L5). Ankle plantar flexion (S1). Great toe extension (L5). 2+ patellar and Achilles DTRs. Skin: redness over the base of the first metatarsal MEDICAL DECISION MAKING: Chief Complaint: please see HPI MDM Narrative: The patient was initially hemodynamically stable, afebrile and nontoxic-appearing. Exam with TTP over the base of the first metatarsal I considered the following differential diagnosis: Foot contusion, fracture dislocation I obtained an x-ray to further determine if the patient was suffering from a life-threatening etiology. Gave ice for initial therapy ALL IMAGES (IF OBTAINED) HAVE BEEN PERSONALLY REVIEWED AND INTERPRETED BY MYSELF. X-ray was read and reviewed personally myself show no evidence of obvious bony injury. The patient likely suffered from a contusion. The patient and/or family, caregivers express understanding. The patient and/or family, caregivers agrees with the plan. Shared decision making: I will have a discussion with the patient and or visitors regarding risk/benefits of further testing or admission. They will be made aware of of the risk/benefits inherent in this decision they will be given the opportunity to voice understanding. Total critical care time today provided was at least 0 minutes. This excludes separately billable procedures. Critical care time (if documented) is secondary to the patient having high probability of clinically significant/life threatening deterioration in the patient's condition which required my urgent intervention. Impression: 1. Acute left foot pain 2. Foot contusion Dispo: Discharge home This note was generated with [employer]dee dictation software. It may contain incorrect words, spelling, and punctuation that were not noted in review of the chart prior to signing. Discharge Plan Triage Chief Complaint: Lower Extremity Injury ED Provider: Buddy Diop Dx/Rx/DC Orders Prescriptions: No Action tramadol 50 MG tablet 50 mg PO Q6H PRN PRN (Reason: Pain) Patient Comments: TAKE 1 TABLET BY MOUTH EVERY 6 HOURS NEEDED oxycodone-acetaminoph en 1 TABLET tablet 1 - 2 tab PO Q4H PRN PRN (Reason: Pain) Qty: 20 0RF hydrocodone-acetamino phen 1 TABLET tablet 1 - 2 tab PO Q4H PRN PRN (Reason: Pain) Qty: 12 0RF Primary Care Provider: Kimi Wilson Referrals: Kimi Wilson MD [Primary Care Provider] - Print Language: Georgian What to do if you have Problems For any increased pain, shortness of breath, bleeding, nausea or vomiting, chest pain, or any unexpected problems, contact your Primary Care Provider. Call [facility] ([phone]) or report to the closest Emergency Room. Call 911 if necessary. 02/05/252031 Cosigner Signature (if applicable): CC: Dr. Kimi Wilson MD Signed Normal [facility] Foot min 3 Viewson Foot min 3 Views [facility] Imaging Services [address] [place], [place] [address] Foot min 3 Views MR#: [id number] Acct: [id number] Name: HUSSEIN LEE Rep #: [id number] : 1985 F 39 From: Sheela Solo MD PCP: Dr. Kimi Wilson MD Status: REG ER Study: Foot min 3 Views Date of Exam: 02/05/25 Exam# [id number] Ordering Dr: Buddy Diop DO PROCEDURE: FOOT MIN 3 VIEWS 02/05/2025 REASON FOR EXAM: PAIN AFTER DROPPING CUP ONTO FOOT TECHNIQUE: FOOT MIN 3 VIEWS COMPARISON: Unremarkable. FINDINGS: Bones: No acute bony abnormalities. Joints: No dislocation. Soft tissues: No soft tissue abnormalities. RAD/Foot min 3 Views IMPRESSION: No acute bony abnormalities. Reading Location: [facility] CC: Dr. Kimi Wilson MD; Dr. Buddy Diop DO Director Trade: Signed Normal [facility] CNOVon 10-18-2024 [facility] Office Visit (WSTR ) HUSSEIN LEE ([id number]) 1985 F Date Time Provider Department 10/18/24 3:45 PM HAYDE BAZAN [facility] During your visit today, we recorded the following information about you: Temperature Pulse Respiration Blood pressure 98.2 degrees 70/minute 18/minute 148/89 Weight 78.8 kg Hayde Bazan APRN.KINDER TEACHER 10/18/2024 4:37 PM Signed [facility] Subjective Hussein Lee is a [...] history is provided by the patient. No teletypewriter installer was used. Cough Associated symptoms include shortness [...] care with fluids and rest Hayde Bazan APRN.KINDER TEACHER History and Record Review External record(s) reviewed: [...] Diagnosis:URI, acute [J06.9] Order(s):XR CHEST 2V FRONTAL/LAT [9909124] Order #: [id number] FUTURE predniSONE (DELTASONE) 10 mg tabletTake 4 [...] as neede (more content not included)... Normal [facility] XR CHEST 2V FRONTAL/LATon XR CHEST 2V [...] tissues: Unremarkable. IMPRESSION: No acute radiographic abnormality. Director Trade: [facility] Transcribe Date/Time: Oct 18 2024 4:24P Dictated by : GERMAINE KAY MD This examination was interpreted and the report reviewed and electronically signed by: GERMAINE KAY MD on Oct 18 2024 4:25PM EST [id number] Normal [facility] XR Chest PA and Lateralon IMPRESSION: No acute radiographic abnormality. Director Trade: [facility] Transcribe Date/Time: Oct 18 2024 4:24P Dictated [...] soft tissues: Unremarkable. DIVISION OF RADIOLOGY Provider, Robel Hammond [facility] - 10/18/2024 * * *Final Report* [...] Unremarkable. IMPRESSION IMPRESSION: No acute radiographic abnormality. Director Trade: [facility] Transcribe Date/Time: Oct 18 2024 4:24P Dictated by : GERMAINE KAY MD This examination was interpreted and the report reviewed and electronically signed by: GERMAINE KAY MD on Oct 18 2024 4:25PM EST [facility] Radiology Study observation (narrative) [facility] XR Chest PA and LateralOrder ed By: [facility] Provider on 10-18-2024 [facility] CBC W Auto Differential pane l (Bld)on 06-15-2024 Basophils (Bld) [#/Vol] 0 10*3/uL 0.0 - 0.2 10*3/uL [facility] Basophils/100 WBC (Bld) 0.2 % 0.0 - 2.0 % [facility] [facility] Eosinophils (Bld) [#/Vol] 0.1 10*3/uL 0.0 - 0.5 10*3/uL [facility] [facility] Eosinophils/100 WBC (Bld) 0.5 % 0.0 - 6.0 % [facility] Erythrocyte distribution width (RBC) [Ratio] 13.2 % 11.5 - 15.0 % [facility] Hematocrit (Bld) [Volume fraction] 36.7 % 35.0 - 47.0 % [facility] Hemoglobin (Bld) [Mass/Vol] 13.5 g/dL 11.7 - 16.0 g/dL [facility] Immature granulocytes (Bld) [#/Vol] 0.1 10*3/uL High NINF - 0.1 10*3/uL [facility] Immature granulocytes/100 WBC (Bld) 0.5 % 0.0 - 2.0 % [facility] Interpretation and review of laboratory results Abnormal [facility] Lymphocytes (Bld) [#/Vol] 2.4 10*3/uL 1.0 - 4.3 10*3/uL [facility] Lymphocytes/100 WBC (Bld) 14.3 % Low 15.0 - 45.0 % [facility] MCH (RBC) [Entitic mass] 31.8 pg 26.0 - 34.0 pg [facility] MCHC (RBC) [Mass/Vol] 36.8 % High 30.5 - 36.0 % [facility] MCV (RBC) [Entitic vol] 86.6 fL 77.0 - 99.0 fL [facility] Monocytes (Bld) [#/Vol] 1.1 10*3/uL High 0.0 - 0.9 10*3/uL [facility] Monocytes/100 WBC (Bld) 6.2 % 5.0 - 13.0 % [facility] Neutrophils (Bld) [#/Vol] 13.3 10*3/uL High 1.8 - 7.5 10*3/uL [facility] Neutrophils/100 WBC (Bld) 78.3 % 38.0 - 82.0 % [facility] Nucleated RBC/100 WBC (Bld) [Ratio] 0 % [facility] Platelet mean volume (Bld) [Entitic vol] 10.4 fL 9.0 - 12.7 fL [facility] Comment on above: MPV is a calculated measurement using platelet volume ratio Platelets (Bld) [#/Vol] 301 10*3/uL 140 - 440 10*3/uL [facility] RBC (Bld) [#/Vol] 4.24 10*6/uL 3.80 - 5.2 0 10*6/uL [facility] WBC (Bld) [#/Vol] 17 10*3/uL High 3.6 - 10.7 10*3/uL [facility] CBC WITH AUTO DIFFERENTIALon 06-15-2024 Basophils (Bld) [#/Vol] 0.0 10*3/uL Normal 0.0-0.2 [facility] Comment on above: Performed By: #### L [id number] #### Needle Loom Setter: GERRI ANAND ([id number]) [facility] [address] [place] [address] [place] Basophils/100 WBC (Bld) 0.2 % Normal 0.0-2.0 [facility] Comment on above: Performed By: #### L [id number] #### Needle Loom Setter: GERRI ANAND ([id number]) [facility] [address] [place] [address] Eosinophils (Bld) [#/Vol] 0.1 10*3/uL Normal 0.0-0.5 [facility] Comment on above: Performed By: #### L [id number] #### Needle Loom Setter: GERRI ANAND ([id number]) [facility] [address] [place] [address] Eosinophils/100 WBC (Bld) 0.5 % Normal 0.0-6.0 [facility] Comment on above: Performed By: #### L [id number] #### Needle Loom Setter: GERRI ANAND ([id number]) [facility] [address] [place] [address] Erythrocyte distribution width (RBC) [Ratio] 13.2 % Normal 11.5-15.0 [facility] Comment on above: Performed By: #### L [id number] #### Needle Loom Setter: GERRI ANAND ([id number]) [facility] [address] [place] [address] Hematocrit (Bld) [Volume fraction] 36.7 % Normal 35.0-47.0 [facility] Comment on above: Performed By: #### L [id number] #### Needle Loom Setter: GERRI ANAND ([id number]) [facility] [address] [place] [address] Hemoglobin (Bld) [Mass/Vol] 13.5 g/dL Normal 11.7-16.0 [facility] Comment on above: Performed By: #### L [id number] #### Needle Loom Setter: GERRI ANAND ([id number]) [facility] [address] [place] [address] IMMATURE GRANS % 0.5 % Normal 0.0-2.0 [facility] Comment on above: Performed By: #### L [id number] #### Needle Loom Setter: GERRI ANAND ([id number]) [facility] [address] [place] [address] IMMATURE GRANS ABSOLUTE 0.1 10*3/uL High <0.1 [facility] Comment on above: Performed By: #### L [id number] #### Needle Loom Setter: GERRI ANAND ([id number]) [facility] [address] [place] [address] Lymphocytes (Bld) [#/Vol] 2.4 10*3/uL Normal 1.0-4.3 [facility] Comment on above: Performed By: #### L [id number] #### Needle Loom Setter: GERRI ANAND ([id number]) [facility] [address] [place] [address] Lymphocytes/100 WBC (Bld) 14.3 % Low 15.0-45.0 [facility] Comment on above: Performed By: #### L [id number] #### Needle Loom Setter: GERRI ANAND ([id number]) [facility] [address] [place] [address] MCH (RBC) [Entitic mass] 31.8 pg Normal 26.0-34.0 [facility] Comment on above: Performed By: #### L [id number] #### Needle Loom Setter: GERRI ANAND ([id number]) [facility] [address] [place] [address] MCHC 36.8 % High 30.5-36.0 [facility] Comment on above: Performed By: #### L [id number] #### Needle Loom Setter: GERRI ANAND ([id number]) [facility] [address] [place] [address] MCV (RBC) [Entitic vol] 86.6 fL Normal 77.0-99.0 [facility] Comment on above: Performed By: #### L [id number] #### Needle Loom Setter: GERRI ANAND ([id number]) [facility] [address] [place] [address] Monocytes (Bld) [#/Vol] 1.1 10*3/uL High 0.0-0.9 [facility] Comment on above: Performed By: #### L [id number] #### Needle Loom Setter: GERRI ANAND ([id number]) [facility] [address] [place] [address] Monocytes/100 WBC (Bld) 6.2 % Normal 5.0-13.0 [facility] Comment on above: Performed By: #### L [id number] #### Needle Loom Setter: GERRI ANAND ([id number]) [facility] [address] [place] [address] NEUTROPHILS ABSOLUTE 13.3 10*3/uL High 1.8-7.5 [facility] Comment on above: Performed By: #### L [id number] #### Needle Loom Setter: GERRI ANAND ([id number]) [facility] [address] [place] [address] Neutrophils/100 WBC (Bld) 78.3 % Normal 38.0-82.0 [facility] Comment on above: Performed By: #### L [id number] #### Needle Loom Setter: GERRI ANAND ([id number]) [facility] [address] [place] [address] NRBC 0.0 /100 WBCs Normal 0.0-2.0 [facility] Comment on above: Performed By: #### L [id number] #### Needle Loom Setter: GERRI ANAND ([id number]) [facility] [address] [place] [address] Platelet mean volume (Bld) [Entitic vol] 10.4 fL Normal 9.0-12.7 [facility] Comment on above: Result Comment: MPV is a calculated measurement using platelet volume ratio Performed By: #### L [id number] #### Needle Loom Setter: GERRI ANAND ([id number]) [facility] [address] [place] [address] [place] Platelets (Bld) [#/Vol] 301 10*3/uL Normal 140-440 [facility] Comment on above: Performed By: #### L [id number] #### Needle Loom Setter: GERRI ANAND ([id number]) [facility] [address] [place] [address] RBC (Bld) [#/Vol] 4.24 10*6/uL Normal 3.80-5.20 [facility] Comment on above: Performed By: #### L [id number] #### Needle Loom Setter: GERRI ANAND ([id number]) [facility] [address] [place] [address] [place] WBC (Bld) [#/Vol] 17.0 10*3/uL High 3.6-10.7 [facility] Comment on above: Performed By: #### L [id number] #### Needle Loom Setter: GERRI ANAND ([id number]) [facility] [address] COMPLETE URINALYSISon 2023 BACTERIA (#/HPF) IN URINE Few Abnormal Negative [facility] Comment on above: Performed By: #### L [id number] #### Needle Loom Setter: GERRI ANAND ([id number]) [facility] [address] [place] [address] BILIRUBIN, TOTAL PRESENCE IN URINE Negative Normal Negative [facility] Comment on above: Performed By: #### L [id number] #### Needle Loom Setter: GERRI ANAND ([id number]) [facility] [address] [place] [address] Clarity (U) Clear Normal Clear [facility] Comment on above: Performed By: #### L [id number] #### Needle Loom Setter: GERRI ANAND ([id number]) [facility] [address] [place] [address] Color (U) Yellow Normal Lt. Yellow [facility] Comment on above: Performed By: #### L [id number] #### Needle Loom Setter: GERRI ANAND ([id number]) [facility] [address] [place] [address] [place] GLUCOSE (MG/DL) IN URINE Normal Normal Normal (<70) [facility] Comment on above: Performed By: #### L [id number] #### Needle Loom Setter: GERRI ANAND ([id number]) [facility] [address] [place] [address] [place] HEMOGLOBIN PRESENCE IN URINE Negative Normal Negative [facility] Comment on above: Performed By: #### L [id number] #### Needle Loom Setter: GERRI ANAND ([id number]) [facility] [address] [place] [address] [place] Ketones Ql (U) 60 mg/dL Abnormal Negative [facility] Comment on above: Performed By: #### L [id number] #### Needle Loom Setter: GERRI ANAND ([id number]) [facility] [address] [place] [address] LEUKOCYTE ESTERASE PRESENCE IN URINE BY TEST STRIP Negative Normal Negative [facility] Comment on above: Performed By: #### L [id number] #### Needle Loom Setter: GERRI ANAND ([id number]) [facility] [address] [place] [address] NITRITE PRESENCE IN URINE Negative Normal Negative [facility] Comment on above: Performed By: #### L [id number] #### Needle Loom Setter: GERRI ANAND ([id number]) [facility] [address] [place] [address] pH (U) 6.0 [pH] Normal 5.0-8.0 [facility] Comment on above: Performed By: #### L [id number] #### Needle Loom Setter: GERRI ANAND ([id number]) [facility] [address] [place] [address] Protein (U) [Mass/Vol] 20 mg/dL Abnormal Negative [facility] Comment on above: Performed By: #### L [id number] #### Needle Loom Setter: GERRI ANAND ([id number]) [facility] [address] [place] [address] [place] RBC (#/HPF) IN URINE SEDIMENT Negative Normal 0-2 [facility] Comment on above: Performed By: #### L [id number] #### Needle Loom Setter: GERRI ANAND ([id number]) [facility] [address] [place] [address] Specific gravity (U) [Rel density] 1.039 High 1.005-1.030 [facility] Comment on above: Performed By: #### L [id number] #### Needle Loom Setter: GERRI ANAND ([id number]) [facility] [address] [place] [address] [place] SQUAMOUS EPITHELIAL CELLS (#/HPF) IN URINE SEDIMENT 3-5 Normal 3-5 [facility] Comment on above: Performed By: #### L [id number] #### Needle Loom Setter: GERRI ANAND ([id number]) [facility] [address] [place] [address] UROBILINOGEN (MG/DL) IN URINE 2 mg/dL Abnormal Normal (0-1) [facility] Comment on above: Performed By: #### L [id number] #### Needle Loom Setter: GERRI ANAND ([id number]) [facility] [address] [place] [address] VOLUME OF URINE 8-12 mL Normal [facility] Comment on above: Performed By: #### L [id number] #### Needle Loom Setter: GERRI ANAND ([id number]) [facility] [address] [place] [address] WBC (LEUKOCYTE) (#/HPF) IN URINE SEDIMENT 0-2 Normal 0-5 [facility] Comment on above: Performed By: #### L [id number] #### Needle Loom Setter: GERRI ANAND ([id number]) [facility] [address] [place] [address] COMPREHENSIVE METABOLIC PANE Harsh 06-15-2024 Albumin [Mass/Vol] 3.4 g/dL Low 3.5-5.0 [facility] Comment on above: Performed By: #### L AB99, LAB17 #### Needle Loom Setter: GERRI ANAND ([id number]) [facility] [address] [place] [address] ALP [Catalytic activity/Vol] 49 U/L Normal 40-150 [facility] Comment on above: Performed By: #### L AB99, LAB17 #### Needle Loom Setter: GERRI ANAND ([id number]) [facility] [address] [place] [address] [place] ALT [Catalytic activity/Vol] 14 U/L Normal <30 [facility] Comment on above: Performed By: #### L AB99, LAB17 #### Needle Loom Setter: GERRI ANAND ([id number]) [facility] [address] [place] [address] [place] Anion gap [Moles/Vol] 5 mmol/L Normal 3-13 [facility] Comment on above: Performed By: #### L AB99, LAB17 #### Needle Loom Setter: GERRI ANAND ([id number]) [facility] [address] [place] [address] AST [Catalytic activity/Vol] 25 U/L Normal <34 [facility] Comment on above: Performed By: #### L AB99, LAB17 #### Needle Loom Setter: GERRI ANAND ([id number]) [facility] [address] [place] [address] [place] Bilirubin [Mass/Vol] 0.7 mg/dL Normal <1.2 [facility] Comment on above: Performed By: #### L AB99, LAB17 #### Needle Loom Setter: GERRI ANAND ([id number]) [facility] [address] [place] [address] [place] Calcium [Mass/Vol] 8.9 mg/dL Normal 8.4-10.2 [facility] Comment on above: Performed By: #### L AB99, LAB17 #### Needle Loom Setter: GERRI ANAND ([id number]) [facility] [address] [place] [address] [place] Chloride [Moles/Vol] 110 mmol/L High 98-107 [facility] Comment on above: Performed By: #### L AB99, LAB17 #### Needle Loom Setter: GERRI ANAND ([id number]) [facility] [address] [place] [address] [place] CO2 [Moles/Vol] 23 mmol/L Normal 22-29 [facility] Comment on above: Performed By: #### L AB99, LAB17 #### Needle Loom Setter: GERRI ANAND ([phone]) [facility] [address] [place] [address] [place] Creatinine [Mass/Vol] 0.76 mg/dL Normal 0.57-1.11 [facility] Comment on above: Performed By: #### L AB99, LAB17 #### Needle Loom Setter: GERRI ANAND ([phone]) [facility] [address] [place] [address] [place] GLOMERULAR FILTRATION RATE ML/MIN/1.73 SQ M.PREDICTED >90.0 Normal >60.0 [facility] Comment on above: Result Comment: Calc ulation based on the Chronic Kidney Disease Epidemiology Collaboration (CKD-EPI) equation refit without adjustment for race Performed By: #### L AB99, LAB17 #### Needle Loom Setter: GERRI ANAND ([phone]) [facility] [address] [place] [address] [place] Glucose [Mass/Vol] 96 mg/dL Normal 74-100 [facility] Comment on above: Performed By: #### L AB99, LAB17 #### Needle Loom Setter: GERRI ANAND ([phone]) [facility] [address] [place] [address] [place] Potassium [Moles/Vol] 4.2 mmol/L Normal 3.5-5.1 [facility] Comment on above: Result Comment: [facility] potassium values may be up to 0.5 mmol/L lower than serum values. Performed By: #### L AB99, LAB17 #### Needle Loom Setter: GERRI ANAND ([id number]) [facility] [address] [place] [address] Protein [Mass/Vol] 6.7 g/dL Normal 6.4-8.3 [facility] Comment on above: Performed By: #### L AB99, LAB17 #### Needle Loom Setter: GERRI ANAND ([phone]) [facility] R[facility]TM[facility] (SWRLAB) [address] [place] [address] Sodium [Moles/Vol] 138 mmol/L Normal 136-145 [facility] Comment on above: Performed By: #### L AB99, LAB17 #### Needle Loom Setter: GERRI ANAND ([id number]) [facility] RITTMAN (SWRLAB) [address] [place] [address] Urea nitrogen [Mass/Vol] 18 mg/dL Normal 8-21 [facility] Comment on above: Performed By: #### L AB99, LAB17 #### Needle Loom Setter: GERRI ANAND ([phone]) [facility] GLORIATMAN (SWRLAB) [address] [place] [address] CT ABDOMEN PELVIS WO IV CONT [facility] 06-15-2024 CT ABDOMEN PELVIS WO IV CONTRAST Patient Name: HUSSEIN ALSTON : 1985 [facility]#: [id number] Exam Date/Time: 06/15/2024 12:38 Procedure: CT ABDOMEN [...] Signed Date/Time: 06/15/2024 1:24 PM EST Normal [facility] CT Abdomen and Pelvis WO con traston 06-15-2024 Acute sigmoid diverticulitis. Small amount of free fluid in the pelvis. Report Dictated on Electronically Signed By: Alex Quintero MD Electronically Signed Date/Time: 06/15/2024 1:24 PM EST [facility] Patient Name: HUSSEIN ALSTON : 1985 [...] kidneys are normal. The bladder is unremarkable. [facility] Alex Quintero MD - 06/15/2024 Patient Name: [...] Electronically Signed Date/Time: 06/15/2024 1:24 PM EST [facility] Radiology Study observation (narrative) [facility] CT Abdomen and Pelvis WO con trastOrdered By: Alex Quintero on 06-15-2024 [facility] Tame Work Phone: Comprehensive metabolic 1998 panelon 06-15-2024 Albumin [Mass/Vol] 3.4 g/dL Low 3.5 - 5.0 g/dL [facility] ALP [Catalytic activity/Vol] 49 U/L 40 - 150 U/L [facility] ALT [Catalytic activity/Vol] 14 U/L NINF - 30 U/L [facility] Anion gap [Moles/Vol] 5 mmol/L 3 - 13 mmol/L [facility] AST [Catalytic activity/Vol] 25 U/L NINF - 34 U/L [facility] Bilirubin [Mass/Vol] 0.7 mg/dL NINF - 1.2 mg/dL [facility] Calcium [Mass/Vol] 8.9 mg/dL 8.4 - 10. 2 mg/dL [facility] Chloride [Moles/Vol] 110 mmol/L High 98 - 10 7 mmol/L [facility] CO2 [Moles/Vol] 23 mmol/L 22 - 29 mmol/L [facility] Creatinine [Mass/Vol] 0.76 mg/dL 0.57 - 1.11 mg/dL [facility] GFR/1.73 sq M.predicted (S/P/Bld) [Vol rate/Area] - PINF [facility] Comment on above: Calculation based on the Chronic Kidney Disease Epidemiology Collaboration (CKD-EPI) equation refit without adjustment for race Glucose [Mass/Vol] 96 mg/dL 74 - 100 mg/dL [facility] Interpretation and review of laboratory results Abnormal [facility] Potassium [Moles/Vol] 4.2 mmol/L 3.5 - 5.1 mmol/L [facility] Comment on above: Plasma potassium maximilian ues may be up to 0.5 mmol/L lower than serum values. Protein [Mass/Vol] 6.7 g/dL 6.4 - 8.3 g/dL [facility] Sodium [Moles/Vol] 138 mmol/L 136 - 145 mmol/L [facility] Urea nitrogen [Mass/Vol] 18 mg/dL 8 - 21 mg/dL [facility] ED Provider Noteon ED Provider Note EMERGENCY [...] WITH REFLE (more content not included)... Normal [facility] HCG QUALITATIVE URINEon 06-03 Beta HCG ( test) Ql (U) Negative Normal Negative [facility] Comment on above: Result Comment: Frankie lucero note: Very dilute urine specimens, as indicated by a low specific gravity, may not contain sales representative publications levels of hCG. If is still suspected, a first morning urine specimen should be collected 48 hours later and tested. ORDER COMMENTS: is the most common reason for HCG in urine, although choriocarcinoma, hydatidiform mole, and certain nontrophoblastic malignancies also result in detectable urinary HCG levels. Sensitivity = 20mIU/mL. Performed By: #### L [id number] #### Needle Loom Setter: GERRI ANAND ([phone]) [facility] [employer]ALLY (SWRLAB) [address] [place] [address] LIPASEon 06-15-2024 Lipase [Catalytic activity/Vol] 13 U/L Normal <55 [facility] Comment on above: Performed By: #### L AB99, LAB17 #### Needle Loom Setter: GERRI ANAND ([phone]) [facility] [employer] ([employer]) [address] [place] [address] Laboratory - Chemistry and C hemistry - challengeon 06-15-2024 Lipase [Catalytic activity/Vol] 13 U/L NINF - 55 U/L [facility] Laboratory - Chemistry and C hemistry - challengeOrdered By: Octavia Ledezma on 06-15-2024 Beta HCG ( test) Ql Negative Negative [facility] Comment on above: Please note: Very di lute urine specimens, as indicated by a low specific gravity, may not contain sales representative publications levels of hCG. If is still suspected, a first morning urine specimen should be collected 48 hours later and tested. Beta HCG ( test) Ql (U) is the most common reason for HCG in urine, although choriocarcinoma, hydatidiform mole, and certain nontrophoblastic malignancies also result in detectable urinary HCG levels. Sensitivity = 20mIU/mL. [facility] Lipase [Catalytic activity/V ol]on 06-15-2024 Interpretation and review of laboratory results Normal [facility] No Panel Informationon 06-15 [facility] No Panel InformationOrdered By: Octavia Ledezma on 06-15-2024 [facility] Urinalysis complete panel (U )on 06-15-2024 Bacteria LM.HPF (Urine sed) [#/Area] Few Abnormal Negative /HPF [facility] Bilirubin Ql (U) Negative Negative mg/dL [facility] Clarity (U) Clear Clear [facility] Color (U) Yellow Lt. Yellow [facility] Epithelial cells.squamous LM.HPF (Urine sed) [#/Area] 3-5 [facility] Glucose Ql (U) Normal Normal (<70) mg/dL [facility] Hemoglobin Ql (U) Negative Negative mg/dL [facility] Interpretation and review of laboratory results Abnormal [facility] Ketones (U) [Mass/Vol] 60 mg/dL Abnormal Negative [facility] Leukocyte esterase Test strip Ql (U) Negative Negative Yessy/uL [facility] Nitrite Ql (U) Negative Negative [facility] th pH (U) 6.0 [pH] 5.0 - 8.0 pH [facility] Protein (U) [Mass/Vol] 20 mg/dL Abnormal Negative [facility] RBC LM.HPF (Urine sed) [#/Area] Negative [facility] Specific gravity (U) [Rel density] 1.039 High 1.005 - 1.030 [facility] Urobilinogen (U) [Mass/Vol] 2 mg/dL Abnormal Normal (0-1) [facility] Volume, Urine 8-12 mL [facility] WBC LM.HPF (Urine sed) [#/Area] 0-2 [facility] CNOVon 11-16-2023 CNOV Office Visit (UCWSTR ) HUSSEIN LEE ([id number]) 1985 F Date Time Provider Department 11/16/23 7:15 AM ARNALDO VELAZQUEZ UCWSTR During your visit today, we recorded the following information about you: Temperature Pulse Respiration Blood pressure 97.7 degrees 81/minute 21/minute 124/80 Weight 82.9 kg Arnaldo Velazquez APRN.KINDER TEACHER 11/16/2023 7:46 AM Signed Subjective HPI Nontoxic-appearing [...] of care. This note was generated using Kingdee software. It may contain errors in wording, punctuation, or spelling. Arnaldo Velazquez APRN.KINDER TEACHER Allergies As of Date: 11/16/2023 (No Known Allergies) Date Reviewed: 11/16/2023 Reviewed by: Arnaldo Velazquez APRN.KINDER TEACHER - Fully Assessed Reason for Visit: Infection [672524] Cmt: Possible infection in right hand mi (more content not included)... Normal [facility] STREP A MOLECULAR (POC)on Procedural Control Valid [facility] Strep A (POCT) Negative Negative [facility] TEST URINEon 05-30 HCG ( test) Ql (U) Negative Normal [facility] Comment on above: Performed By: #### U HCG ####[address] [address]Hsrseckmf CBCon 05-23-2017 Erythrocyte distribution width Auto Ratio (RBC) 13.3 % Normal 11.5-14.5 [facility] Comment on above: Performed By: #### C BC ####[address] [address]Unzfptklj Erythrocytes (RBC) 4.78 10*6/uL Normal 3.80-5.10 [facility] Comment on above: Performed By: #### C BC ####[address] [address]Ixizmgvmd Hematocrit (HCT) 41.1 % Normal 35.0-47.0 [facility] Comment on above: Performed By: #### C BC ####[address] [address]Rgjelvutx Hemoglobin mass conc (Bld) 14.1 g/dL Normal 12.0-16.0 [facility] Comment on above: Performed By: #### C BC ####[address] [address]Nzpbsragq MCH 29.5 pg Normal 25.6-32.2 [facility] Comment on above: Performed By: #### C BC ####[address] [address]Fsrkfrmkk MCHC mass conc (RBC) 34.3 % Normal 32.0-36.0 [facility] Comment on above: Performed By: #### C BC ####[address] [address]Ksjzfhper MCV 86.0 fL Normal 82.0-98.0 [facility] Comment on above: Performed By: #### C BC ####[address] [address]Phgbdchnk Platelet mean volume (PMV) 11.4 fL Normal 9.4-12.4 [facility] Comment on above: Performed By: #### C BC ####[address] [address]Ozfdglpil Platelets 314 10*3/uL Normal 150-400 [facility] Comment on above: Performed By: #### C BC ####[address] [address]Twmgsjhyy WBC (Leukocytes) 10.56 10*3/uL Normal 4.80-10.80 [facility] Comment on above: Performed By: #### C BC ####[address] [address]Gmrmdszio FOCUS 7on 05-23-2017 Glucose mass conc 90 mg/dL Normal 70-100 [facility] Comment on above: Performed By: #### C HM7 ####[address] [address]Vldzrghna Urea nitrogen 19 mg/dL Normal 7-22 [facility] Comment on above: Performed By: #### C HM7 ####[address] [address]Ffjahwhrb CO2 23.0 mm/Hg Normal 22.0-30.0 [facility] Comment on above: Performed By: #### C HM7 ####[address] [address]Mljkpdjjw Creatinine 0.80 mg/dL Normal 0.70-1.20 [facility] Comment on above: Performed By: #### C HM7 ####[address] [address]Drpafhlak eGFR (non-black) 88 mL/min/1.73 m2 Normal >60 M [facility] Comment on above: Result Comment: Refe rence [...] OR very young -Races other than or -Scottish -People with acute illnesses, amputations, or acute kidney failure.Estimated GFR should be interpreted in clinical context and an alternative method such as a timed urine collection for creatinine clearance used to verify questionable results. (Ref. National Kidney Foundation 2015) Performed By: #### C HM7 ####[address] [address]Ooadybgqh Potassium molar conc 4.4 mmol/L Normal 3.5-5.0 [facility] Comment on above: Performed By: #### C HM7 ####[address] [address]Cxjzfdnox Sodium 139 mmol/L Normal 136-145 [facility] Comment on above: Performed By: #### C HM7 ####[address] [address]Yxloqafvr Chloride 104 mmol/L Normal 100-110 [facility] Comment on above: Performed By: #### C HM7 ####[address] [address]Uisvyzmzh HEPATIC FUNCTION PANELon Alanine aminotransferase (ALT) 31 U/L Normal 9-52 [facility] Comment on above: Performed By: #### H EP1P ####[address] [address]Xlhswdosy ALK PHOS 46 U/L Normal 38-126 [facility] Comment on above: Performed By: #### H EP1P ####[address] [address]Kwgcgqkef Aspartate aminotransferase (AST) 22 U/L Normal 14-56 [facility] Comment on above: Performed By: #### H EP1P ####[address] [address]Ieanliodq Bilirubin (total) 0.1 mg/dL Normal 0.0-0.4 [facility] Comment on above: Performed By: #### H EP1P ####[address] [address]Bahmjoncu Bilirubin Ql (U) 0.2 mg/dL Normal 0.2-1.2 [facility] Comment on above: Performed By: #### H EP1P ####[address] [address]Qlkaeidcd Protein 7.7 g/dL Normal 6.0-8.2 [facility] Comment on above: Performed By: #### H EP1P ####[address] [address]Uzhaglvmt Albumin 4.4 g/dL Normal 3.5-5.0 [facility] Comment on above: Performed By: #### H EP1P ####[address] [address]Jxoofofrr ABDOMINAL LIMITED USon 05-05 ABDOMINAL LIMITED US CLINICAL INDICATION:RUQ PAINEXAM DESCRIPTION:ABDOMINAL [...] No comparison study.Read By: LISSETTE OROZCO MD Counts include 234 beds at the [facility] Vital Signs Date Time Vital Sign Value Performing Clinician Facility 02-05-2025 20:31-0400 Body temperature 97 [degF] Dr. Kimi Wilson MD Work Phone: 7(036)720-148082 [place] [address] 02-05-2025 20:31-0400 Diastolic blood pressure 91 mm[Hg] Dr. Kimi Wilson MD Work Phone: 3(011)134-045282 [place] [address] 02-05-2025 20:31-0400 Heart rate 68 /min Dr. Kimi Wilson MD Work Phone: 9(883)546-966120 [place] [address] 02-05-2025 20:31-0400 Respiratory rate 15 /min Dr. Kimi Wilson MD Work Phone: 2(111)362-532520 [place] [address] 02-05-2025 20:31-0400 SaO2% (BldA) [Mass fraction] 99 % Dr. Kimi Wilson MD Work Phone: 1(208)284-301782 [place] [address] 02-05-2025 20:31-0400 Systolic blood pressure 144 mm[Hg] Dr. Kimi Wilson MD Work Phone: 3(929)547-059082 [place] [address] 02-05-2025 19:45-0400 Body height 149.[address] Kimi Wilson MD Work Phone: 3(440)207-989282 [place] [address] 02-05-2025 19:45-0400 Body mass index (BMI) [Ratio] 35.2 kg/m2 Dr. Kimi Wilson MD Work Phone: 4(185)654-630582 [place] [address] 02-05-2025 19:45-0400 Body weight 79.[address] Kimi Wilson MD Work Phone: 1(805)839-635882 [place] [address] 10-18-2024 15:50-0400 Body mass index (BMI) [Ratio] 35.09 kg/m2 Hayde Bazan APRN.CNP Work Phone: [facility] 10-18-2024 15:50-0400 Body temperature 98.2 [degF] Hayde Bazan VALERIA.KINDER TEACHER Work Phone: [facility] 10-18-2024 15:50-0400 Body weight 78.8 kg Hayde Bazan VALERIA.KINDER TEACHER Work Phone: [facility] 10-18-2024 15:50-0400 Diastolic blood pressure 89 mm[Hg] Hayde Bazan VALERIA.KINDER TEACHER Work Phone: [facility] 10-18-2024 15:50-0400 Heart rate 70 /min Hayde Bazan VALERIA.KINDER TEACHER Work Phone: [facility] 10-18-2024 15:50-0400 Respiratory rate 18 /min Hayde Bazan VALERIA.KINDER TEACHER Work Phone: [facility] 10-18-2024 15:50-0400 SaO2% (BldA) [Mass fraction] 100 % Hayde Bazan VALERIA.KINDER TEACHER Work Phone: [facility] 10-18-2024 15:50-0400 Systolic blood pressure 148 mm[Hg] Hayde Bazan VALERIA.KINDER TEACHER Work Phone: [facility] 06-15-2024 13:12-0500 Diastolic blood pressure 69 mm[Hg] ABEL Pelaez MD Work Phone: [facility] 06-15-2024 13:12-0500 Heart rate 72 /min ABEL Pelaez MD Work Phone: [facility] 06-15-2024 13:12-0500 Respiratory rate 18 /min ABEL Pelaez MD Work Phone: [facility] 06-15-2024 13:12-0500 SaO2% (BldA) [Mass fraction] 99 % ABEL Pelaez MD Work Phone: [facility] 06-15-2024 13:12-0500 Systolic blood pressure 123 mm[Hg] ABEL Pelaez MD Work Phone: [facility] 06-15-2024 11:38-0500 Body height 149.9 cm ABEL Pelaez MD Work Phone: [facility] 06-15-2024 11:38-0500 Body mass index (BMI) [Ratio] 34.34 kg/m2 ABEL Pelaez MD Work Phone: [facility] 06-15-2024 11:38-0500 Body temperature 97.11 [degF] ABEL Pelaez MD Work Phone: [facility] 06-15-2024 11:38-0500 Body weight 77.11 kg ABEL Pelaez MD Work Phone: [facility] 11-16-2023 07:13-0400 Body mass index (BMI) [Ratio] 36.91 kg/m2 Arnaldo Velazquez WORKFORCE MANAGEMENT ANALYST.KINDER TEACHER Work Phone: [facility] 11-16-2023 07:13-0400 Body temperature 97.7 [degF] Arnaldo Velazquez WORKFORCE MANAGEMENT ANALYST.KINDER TEACHER Work Phone: [facility] 11-16-2023 07:13-0400 Body weight 82.9 kg Arnaldo Velazquez WORKFORCE MANAGEMENT ANALYST.KINDER TEACHER Work Phone: [facility] 11-16-2023 07:13-0400 Diastolic blood pressure 80 mm[Hg] Arnaldo Velazquez APRN.KINDER TEACHER Work Phone: [facility] 11-16-2023 07:13-0400 Heart rate 81 /min Arnaldo Velazquez APRN.KINDER TEACHER Work Phone: [facility] 11-16-2023 07:13-0400 Respiratory rate 21 /min Arnaldo Velazquez APRN.KINDER TEACHER Work Phone: [facility] 11-16-2023 07:13-0400 SaO2% (BldA) [Mass fraction] 99 % Arnaldo Velazquez APRN.KINDER TEACHER Work Phone: [facility] 11-16-2023 07:13-0400 Systolic blood pressure 124 mm[Hg] Arnaldo Velazquez APRN.KINDER TEACHER Work Phone: [facility] 10-07-2023 09:44-0400 Body height 149.9 cm Corinne Ball WORKFORCE MANAGEMENT ANALYST.KINDER TEACHER Work Phone: [facility] 10-07-2023 09:44-0400 Body temperature 97.59 [degF] Corinne Ball WORKFORCE MANAGEMENT ANALYST.KINDER TEACHER Work Phone: [facility] 10-07-2023 09:44-0400 Body weight 87.7 kg Corinne Ball WORKFORCE MANAGEMENT ANALYST.KINDER TEACHER Work Phone: [facility] 10-07-2023 09:44-0400 Diastolic blood pressure 79 mm[Hg] Corinne Ball WORKFORCE MANAGEMENT ANALYST.KINDER TEACHER Work Phone: [facility] 10-07-2023 09:44-0400 Heart rate 77 /min Corinne Ball WORKFORCE MANAGEMENT ANALYST.KINDER TEACHER Work Phone: [facility] 10-07-2023 09:44-0400 Respiratory rate 16 /min Corinne Ball WORKFORCE MANAGEMENT ANALYST.KINDER TEACHER Work Phone: [facility] 10-07-2023 09:44-0400 SaO2% (BldA) [Mass fraction] 99 % Corinne Ball WORKFORCE MANAGEMENT ANALYST.KINDER TEACHER Work Phone: [facility] 10-07-2023 09:44-0400 Systolic blood pressure 136 mm[Hg] Corinne Ball WORKFORCE MANAGEMENT ANALYST.KINDER TEACHER Work Phone: [facility] 08-17-2023 16:01-0500 Body temperature 97.39 [degF] Krislyn Aberegg PA Work Phone: [facility] 08-17-2023 16:01-0500 Body weight 91.17 kg Krislyn Aberegg PA Work Phone: [facility] 08-17-2023 16:01-0500 Diastolic blood pressure 80 mm[Hg] Krislyn Aberegg PA Work Phone: [facility] 08-17-2023 16:01-0500 Heart rate 74 /min Krislyn Aberegg PA Work Phone: [facility] 08-17-2023 16:01-0500 Respiratory rate 16 /min Krislyn Aberegg PA Work Phone: [facility] 08-17-2023 16:01-0500 SaO2% (BldA) [Mass fraction] 100 % Tania Quach PA Work Phone: [facility] 08-17-2023 16:01-0500 Systolic blood pressure 122 mm[Hg] Tania Quach PA Work Phone: [facility] 08-24-2022 15:57-0500 Body temperature 98.8 [degF] Alex Nate WORKFORCE MANAGEMENT ANALYST.KINDER TEACHER Work Phone: [facility] 08-24-2022 15:57-0500 Body weight 95.71 kg Laex Nate WORKFORCE MANAGEMENT ANALYST.KINDER TEACHER Work Phone: [facility] 08-24-2022 15:57-0500 Diastolic blood pressure 78 mm[Hg] Alex Nate WORKFORCE MANAGEMENT ANALYST.KINDER TEACHER Work Phone: [facility] 08-24-2022 15:57-0500 Heart rate 80 /min Alex Nate WORKFORCE MANAGEMENT ANALYST.KINDER TEACHER Work Phone: [facility] 08-24-2022 15:57-0500 Respiratory rate 16 /min Alex Nate WORKFORCE MANAGEMENT ANALYST.KINDER TEACHER Work Phone: [facility] 08-24-2022 15:57-0500 SaO2% (BldA) [Mass fraction] 98 % Alex Nate WORKFORCE MANAGEMENT ANALYST.KINDER TEACHER Work Phone: [facility] 08-24-2022 15:57-0500 Systolic blood pressure 128 mm[Hg] Alex Nate WORKFORCE MANAGEMENT ANALYST.KINDER TEACHER Work Phone: [facility] Encounters Encounter Date Encounter Type Care Provider Facility Start: 02-05-2025 End: 02-05-2025 Emergency department patient visit Dr. Kimi Wilson MD Work Phone: -Emergency Department Work Phone: Start: 10-18-2024 End: 10-18-2024 Subsequent hospital visit by physician Christian [facility] Work Phone: Radiology Comment on above: Acute cough [R05.1] Start: 10-18-2024 End: 10-18-2024 Patient encounter procedure Hayde Bazan APRN.KINDER TEACHER Work Phone: [facility] Comment on above: Acute cough (Primary Dx); URI, acute Start: 10-18-2024 End: 10-18-2024 [facility] Facility:[facility] Start: 06-15-2024 End: 06-15-2024 Subsequent hospital visit by physician [facility] Exam Room [address] [facility] [address] Comment on above: Arrived Start: 06-15-2024 End: 06-15-2024 Emergency department patient visit J Jane Pelaez MD Work Phone: [facility] ED Comment on above: Sigmoid diverticulit is (Primary Dx) Start: 11-16-2023 End: 11-16-2023 [facility] Facility:[facility] Start: 11-16-2023 End: 11-16-2023 Office outpatient visit 25 minutes Arnaldo Velazquez APRN.KINDER TEACHER Work Phone: [facility] Comment on above: Paronychia of finger , right (Primary Dx) Start: 10-07-2023 End: 10-07-2023 Office outpatient visit 15 minutes Corinne Lyons APRN.KINDER TEACHER Work Phone: [facility] Comment on above: Acute otitis externa of both ears, unspecified type (Primary Dx) Start: 08-17-2023 End: 08-17-2023 Patient encounter procedure Tania ARMENDARIZ Work Phone: [facility] Comment on above: Sore throat (Primary Dx); URI, acute; Acute otitis media, right Start: 08-24-2022 End: 08-24-2022 Patient encounter procedure Alex Sullivan APRN.KINDER TEACHER Work Phone: [facility] Comment on above: Bacterial conjunctiv itis (Primary Dx) Start: 08-24-2022 Telephone encounter Alex solis APRN.KINDER TEACHER Work Phone: [facility] Comment on above: Medication Problem Start: 02-23-2022 Telephone encounter Hayde Bazan APRN.KINDER TEACHER Work Phone: [facility] Comment on above: Results Start: 05-30-2017 End: 05-31-2017 Ambulatory ARNALDO FERNANDEZ Facility: Start: 05-23-2017 End: 05-24-2017 Ambulatory ISAURA DENT Facility:01 Start: 05-05-2017 End: 05-06-2017 Ambulatory ISA[facility]A DENT Facility:01 Procedures Date Procedure Procedure Detail Performing Clinician Start: 02-05-2025 X-ray of foot, three or more views Dr. Kimi Wilson MD Work Phone: Start: 10-18-2024 Radiologic exam ches t 2 views Hayde Bazan APRN.KINDER TEACHER Work Phone: Start: 06-15-2024 Ct abdomen & pelvis w/o contrast material Camryn Pelaez MD Work Phone: Start: 06-15-2024 Assay of phosphatase alkaline Camryn Pelaez MD Work Phone: Start: 06-15-2024 Urinalysis complete panel - Urine Camryn Pelaez MD Work Phone: Start: 06-15-2024 Urine [...] for Adults (1 - 1-dose 75+ series) [facility] Start: 2035 Zoster Vaccines (1 of 2) Zoster Vaccines (1 of 2) [facility] Start: 02-05-2025 [facility] Start: 03-04-2024 COVID-19 Vaccine ( season) COVID-19 Vaccine ( season) [facility] Start: 03-04-2024 Influenza vaccination [facility] Start: 07-04-2023 Behavioral Health Screening Behavioral Health Screening [facility] Start: 07-04-2023 Depression Assessment Depression Assessment [facility] Start: 03-04-2023 Covid-19 Vaccine ( season) Covid-19 Vaccine ( season) [facility] Start: 03-04-2023 Influenza vaccination Influenza Vaccine (#1) [facility] Start: 07-04-2022 DEPRESSION ASSESSMENT DEPRESSION ASSESSMENT [facility] Start: 03-04-2022 Influenza vaccination INFLUENZA (#1) [facility] Start: 07-02-2016 PAP TESTING PAP TESTING [facility] Start: 07-02-2016 Screening for malignant neoplasm of cervix Pap Testing [facility] Start: 2015 HPV TESTING HPV TESTING [facility] Start: 2015 Screening for malignant neoplasm of cervix [facility] Start: 07-02-2014 Screening for malignant neoplasm of cervix Cervical Cancer Screening [facility] Start: 2006 Screening for malignant neoplasm of cervix Pap Smear [facility] Start: 07-22-2005 DTaP/Tdap/Td Vaccines (5 - Tdap) DTaP/Tdap/Td Vaccines (5 - Tdap) [facility] Start: 07-22-2005 Urine microalbumin profile [facility] Start: 2004 DTaP/Tdap/Td Vaccines (1 - Tdap) DTaP/Tdap/Td Vaccines (1 - Tdap) [facility] Start: 2004 Hepatitis B Vaccine (1 of 3 - 19+ 3-dose series) Hepatitis B Vaccine (1 of 3 - 19+ 3-dose series) [facility] Start: 2004 Hepatitis B Vaccines (1 of 3 - 19+ 3-dose series) Hepatitis B Vaccines (1 of 3 - 19+ 3-dose series) [facility] Start: 2003 Anxiety Screening Anxiety Screening [facility] Start: 2003 Depression Screening Depression Screening [facility] Start: 2003 HEPATITIS C SCREENING HEPATITIS C SCREENING [facility] Start: 2003 Hepatitis C screening Hepatitis C Screening [facility] Start: 2003 HIV SCREENING HIV SCREENING [facility] Start: 2003 HIV screening HIV Screening [facility] Start: 1998 Varicella vaccination Varicella Vaccines (1 of 2 - 13+ 2-dose series) [facility] Start: 1997 Adult depression screening assessment DEPRESSION SCREENING [facility] Start: 1986 MMR Vaccines (1 of 1 - Standard series) MMR Vaccines (1 of 1 - Standard series) [facility] Start: 01-02-1986 COVID-19 VACCINE (#1) COVID-19 VACCINE (#1) [facility] Start: 1985 HEPATITIS B (1 of 3 - 3-dose series) HEPATITIS B (1 of 3 - 3-dose series) [facility] Start: 1985 Hepatitis B Vaccine (1 of 3 - 3-dose series) Hepatitis B Vaccine (1 of 3 - 3-dose series) [facility] Start: 1985 HIV screening HIV Screening [facility] Start: 1985 Lipid panel Lipid Panel [facility] Patient Education ED Foot Contusion [facility] Work Phone: Immunizations Immunization Date Immunization Notes Care Provider [facility] 08-10-2019 influenza virus vaccine, unspecified formulation Tania ARMENDARIZ Work Phone: [facility] 02-28-2014 pneumococcal vaccine , unspecified formulation Dr. Kimi Wilson MD Work Phone: [facility] 03-15-2012 human papilloma viru s vaccine, quadrivalent Hayde Bazan APRN.KINDER TEACHER Work Phone: [facility] 11-15-2011 human papilloma viru s vaccine, quadrivalent Hayde Bazan APRN.KINDER TEACHER Work Phone: [facility] 09-06-2011 human papilloma viru s vaccine, quadrivalent Hayde Bazan APRN.KINDER TEACHER Work Phone: [facility] Work Phone: 07-21-2005 tetanus and diphther ia toxoids, adsorbed, preservative free, for adult use (2 Lf of tetanus toxoid and 2 Lf of diphtheria toxoid) Hayde Bazan APRN.KINDER TEACHER Work Phone: [facility] Work Phone: 07-19-2005 tuberculin skin test ; purified protein derivative solution, intradermal Hayde Tom WORKFORCE MANAGEMENT ANALYST.[facility] Work Phone: [facility] 12-12-1996 measles, mumps and rubella virus vaccine Hayde Tom WORKFORCE MANAGEMENT ANALYST.[employer] [facility] Work Phone: [facility] Work Phone: 03-22-1991 diphtheria and tetan us toxoids, adsorbed for pediatric use Hayde Tom WORKFORCE MANAGEMENT ANALYST.[facility] Work Phone: [facility] Work Phone: 07-08-1989 diphtheria and tetan us toxoids, adsorbed for pediatric use Hayde Tom WORKFORCE MANAGEMENT ANALYST.[facility] Work Phone: [facility] Work Phone: 07-08-1989 measles, mumps and rubella virus vaccine Hayde Tom WORKFORCE MANAGEMENT ANALYST.[facility] Work Phone: [facility] Work Phone: 07-08-1989 trivalent poliovirus vaccine, live, oral Hayde Tom WORKFORCE MANAGEMENT ANALYST.[facility] Work Phone: [facility] Work Phone: 02-25-1986 diphtheria and tetan us toxoids, adsorbed for pediatric use Hayde Tom WORKFORCE MANAGEMENT ANALYST.[facility] Work Phone: [facility] Work Phone: 02-25-1986 trivalent poliovirus vaccine, live, oral Hayde Tom WORKFORCE MANAGEMENT ANALYST.[facility] Work Phone: [facility] Work Phone: 1985 diphtheria and tetan us toxoids, adsorbed for pediatric use Hayde Tom WORKFORCE MANAGEMENT ANALYST.[facility] Work Phone: [facility] Work Phone: 1985 trivalent poliovirus vaccine, live, oral Hayde Tom WORKFORCE MANAGEMENT ANALYST.[facility] Work Phone: [facility] Work Phone: Payers Date Payer Category Payer Self-pay 2022 Medicaid HMO [employer] [id number] 2022 Medicaid [id number] 2019 Medicaid [id number] 2014 Unknown [id number] Unknown Unknown [id number] Social History Date Type Detail Facility Start: 02-22-2022 End: 02-05-2025 Tobacco smoking status NJIS Ex-smoker [facility] Work Phone: History of tobacco use Current smoker [facility] Work Phone: History of tobacco use Cigarette Smoker [facility] Work Phone: Start: 02-22-2022 End: 06-15-2024 Tobacco use and exposure Smokeless tobacco non-user [facility] Work Phone: Start: 02-22-2022 End: 10-18-2024 Alcohol intake Current drinker of alcohol (finding) [facility] Start: 02-22-2022 Tobacco Comment smokes 1 pack a week; has set a quite date for January 29 2012 (noted smokes) [facility] Start: 1985 Sex Assigned At Not on file [facility] Start: 02-12-2022 End: 02-22-2022 Exposure to SARS-CoV-2 (event) Not sure [facility] Work Phone: Start: 06-08-2020 End: 08-17-2023 History of Social function [facility] Start: 06-08-2020 End: 08-17-2023 Tobacco use panel [facility] National Score (1-100), lower number is lower risk Not on file [facility] Start: 06-15-2024 Alcohol Comment socially [facility] Start: 06-15-2024 Sex Female (finding) [facility] Start: 1985 Sex Assigned At Female [facility] Functional Status Date Assessment Result Facility 11-05-2014 Are you deaf, or do you have serious difficulty hearing No 11/05/2014 8:00 AM Juany Solitario LPN No [facility] 11-05-2014 Are you blind, or do you have serious difficulty seeing, even when wearing glasses No 11/05/2014 8:00 AM Juany Solitario LPN No [facility] 11-05-2014 Do you have serious difficulty walking or climbing stairs No 11/05/2014 8:00 AM Juany Solitario LPN No [facility] 11-05-2014 Do you have difficul ty dressing or bathing No 11/05/2014 8:00 AM Juany Solitario LPN No [facility] 11-05-2014 Because of a physica l, mental, or emotional condition, do you have difficulty doing errands alone such as visiting a physician's office or shopping No 11/05/2014 8:00 AM Juany Solitario LPN No [facility] Mental Status Date Assessment Result Facility 11-05-2014 Because of a physica l, mental, or emotional condition, do you have serious difficulty concentrating, remembering, or making decisions No 11/05/2014 8:00 AM Juany Solitario LPN No [facility] Clinical Notes 02-23-2022 to 02-05-2025 Note Date & Type Note Facility 02-05-2025 Discharge summary [facility] 02-05-2025 Radiology Diagnostic study note [facility] Imaging Services [address] [place] [address] Foot min 3 Views MR#: [id number] Acct: [id number] Name: HUSSEIN LEE Rep #: [id number] : 1985 F 39 From: Crow Solo MD PCP: Dr. Kimi Wilson MD Status: RE G ER Study:Foot min 3 Views Date of Exam: 11/25 Exam# [id number] Ordering Dr: Dashawn Diop DO PROCEDURE: FOOT MIN 3 VIEWS 02/05/2025 REASON FOR EXAM: PAIN AFTER DROPPING CUP ONTO FOOT TECHNIQUE: FOOT MIN 3 VIEWS COMPARISON: Unremarkable. FINDINGS: Bones: No acute bony abnormalities. Joints: No dislocation. Soft tissues: No soft tissue abnormalities. RAD/Foot min 3 Views IMPRESSION: No acute bony abnormalities. Reading Location: [facility] CC: Dr. Kimi Wilson MD; Dr. Buddy Diop DO ~ Director Trade: Signed [facility] 02-05-2025 Discharge summary Note Date/Time February 05, 2025 8:32pm [facility] Medical Records Department [address] [place] [address] Emergency Department Summary 02/05/25 MR#: [id number] Acct: [id number] Name: HUSSEIN LEE Rep #:[id number] : 1985 39 From: Buddy Ortega PCP: Dr. Kimi Wilson MD Status:RE G ER Location: ED HPI History of Present Illness Chief Complaint: Lower Extremity Injury PFSH PFSH Medical History no medical history Home Medications ?Medication ?Instructions ?Recorded ?Last Taken ?Type oxycodone-acetaminophen 5 mg-325 1 - 2 tab PO Q4H PRN PRN Pain #20 04/27/14 Unknown Rx mg tablet tabs tramadol 50 mg tablet 50 mg PO Q6H PRN PRN Pain Unknown History hydrocodone-acetaminophen 5-325mg 1 - 2 tab PO Q4H PRN PRN Pain ##12 10/18/15 Unknown Rx 5mg-325mg Allergy/AdvReac Type Severity Reaction Status Date / Time No Known Allergies Allergy Verified 02/05/25 19:45 Family History no significant family his Surgical History no surgical history Social History Smoking Status: Former smoker EXAM Physical Exam Const Vital Signs: 02/05/25 19:45 Temperature 97 F L Temperature Source Temporal Pulse Rate 68 Respiratory Rate 15 Blood Pressure 144/91 H Blood Pressure Mean 108 Pulse Ox 99 Oxygen Delivery Method Room Air [facility] Narrative Medical decision making narrative: HISTORY OF PRESENT ILLNESS: Chief complaint: Left foot injury 39-year-old female presents after left foot pain after dropping a standstill cupof water on her left foot REVIEW OF SYSTEMS: Pertinent positives: Left foot pain Pertinent negatives: Loss of sensation PHYSICAL EXAM: Nursing triage notes reviewed, Vital signs reviewed Constitutional: please see mdm Extremities: No edema, compartments are soft Neuro: Intact sensation L1-S1 dermatomal distributions. Intact 5/5 strength in hip flexion (T12-L3). Knee extension (L2-L4). Ankle dorsiflexion (L4-L5). Ankle plantar flexion (S1). Great toe extension (L5). 2+ patellar and AchillesDTRs. Skin: redness over the base of the first metatarsal MEDICAL DECISION MAKING: Chief Complaint: please see [facility] Narrative: The patient was initially hemodynamically stable, afebrile and nontoxic-appearing. Exam with TTP over the base of the first metatarsal I considered the following differential diagnosis: Foot contusion, fracture dislocation I obtained an x-ray to further determine if the patient was suffering from a life-threatening etiology. Gave ice for initial therapy ALL IMAGES (IF OBTAINED) HAVE BEEN PERSONALLY REVIEWED AND INTERPRETED BY MYSELF. X-ray was read and reviewed personally myself show no evidence of obvious bony injury. The patient likely suffered from a contusion. The patient and/or family, caregivers express understanding. The patient and/orfamily, caregivers agrees with the plan. Shared decision making: I will have a discussion with the patient and or visitors regarding risk/benefits of further testing or admission. They will be made aware of of the risk/benefits inherent in this decision they will be given the opportunity to voice understanding. Total critical care time today provided was at least 0 minutes. This excludes separately billable procedures. Critical care time (if documented) is secondary to the patient having high probability of clinically significant/life threatening deterioration in the patient's condition which required my urgent intervention. Impression: 1. Acute left foot pain 2. Foot contusion Dispo: Discharge home This note was generated with Kingdee dictation software. It may contain incorrectwords, spelling, and punctuation that were not noted in review of the chart prior to signing. Discharge Plan Triage Chief Complaint: Lower Extremity Injury ED Provider: Jadon,Buddy Dx/Rx/DC Orders Prescriptions: No Action tramadol 50 MG tablet 50 mg PO Q6H PRN PRN (Reason: Pain) Patient Comments: TAKE 1 TABLET BY MOUTH EVERY 6 HOURS NEEDED oxycodone-acetaminophen 1 TABLET tablet 1 - 2 tab PO Q4H PRN PRN (Reason: Pain) Qty: 20 0RF hydrocodone-acetaminophen 1 TABLET tablet 1 - 2 tab PO Q4H PRN PRN (Reason: Pain) Qty: 12 0RF Primary Care Provider: Kimi Wilson Referrals: Kimi Wilson MD [Primary Care Provider] - Print Language: Georgian What to do if you have Problems For any increased pain, shortness of breath, bleeding, nausea or vomiting, chestpain, or any unexpected problems, contact your Primary Care Provider. Call [facility] ([phone]) or report to the closest Emergency Room. Call 911 if necessary. 02/05/252031 <Electronically signed by Buddy Diop DO> Cosigner Signature (if applicable): CC: Dr. Kimi Wilson MD ~ Signed [facility] Work Phone: [phone]) 388-225004-17-2025 History of Present illness Narrative* Luana Patton RT(R) - 10/18/2024 4:10 PM EDT Radiology Service Progress Note PATIENT NAME: Hussein Lee DATE OF SERVICE: October 18, 2024 TIME: 4:15 PM PATIENT IDENTITY VERIFICATION COMPLETED USING TWO (2) IDENTIFIERS: Name and Date of confirmedby patient verbally. FALL SCREENING: Has the patient had 2 falls in the last year or 1 fall with injury or currently using an Ambulatory Assistive Device (Walker, Cane, Wheelchair, Crutches, etc.)? No PATIENT GENDER DATA: Assigned female at . status: : No status:NO. PATIENT RELEVANT IMPLANT DATA REVIEWED: Yes PATIENT PRESENTS WITH AN IMPLANTABLE OR ATTACHED AUTO MECHANIC: No RADIOLOGY DEPARTMENT: General X-ray: Exam(s) Completed: Chest X-Ray PERIPHERAL IV DATA: Not applicable SIGNED BY: RT Gavino(R) October 18, 2024 4:15 PM documented [facility]25 NoteHNO ID: [id number] Author: LUANA PATTON RT(R) Service: ? Author Type: Smudger Type: Progress Notes Filed: 10/18/2024 16:22 Note [...] PATIENT PRESENTS WITH AN IMPLANTABLE OR ATTACHED AUTO MECHANIC: No RADIOLOGY DEPARTMENT: General X-ray: Exam(s) Completed: Chest X-Ray PERIPHERAL IV DATA: Not applicable SIGNED BY: RT Gavino(R) October 18, 2024 4:15 [facility]04-17-2025 NoteHNO ID: [id number] Author: HAYDE BAZAN APRN.KINDER TEACHER Service: ? Author Type: Nurse Practitioner Type: [...] history is provided by the patient. No teletypewriter installer was used. Cough Associated symptoms include shortness [...] care with fluids and rest Hayde Bazan APRN.KINDER TEACHER History and Record Review External record(s) reviewed: no prior records. Disposition The patient was discharged. [facility] History of Present illness Narrative* Hayde Bazan APRN.KINDER TEACHER - 10/18/2024 3:59 PM EDT [facility] Subjective Hussein Lee is [...] history is provided by the patient. No teletypewriter installer was used. Cough Associated symptoms include shortness [...] care with fluids and rest Hayde Bazan APRN.KINDER TEACHER History and Record Review External record(s) reviewed: no prior records. Disposition The patient was discharged. Procedures documented [facility] Emergency department Note * Subha Shoemaker RN - 06/15/2024 1:50 PM EST Discharge teaching completed. Pt verbalizes understanding of medications, times to return to the ED, and follow up care discussed. Pt is stable and ambulatory upon discharge. Pt is a/o x 4; breathing is even and unlabored on room air. No distress noted. Pt leaves ED with all belongings. [id number] NoteDischarge teaching completed. Pt verbalizes understanding of medications, times to return to the ED, and follow up care discussed. Pt is stable and ambulatory upon discharge. Pt is a/o x 4; breathing is even and unlabored on room air. No distress noted. Pt leaves ED with all belongings.[facility]12-13-2024 Emergency department Note* Subha Shoemaker RN - 06/15/2024 1:50 PM EST Discharge teaching completed. Pt verbalizes understanding of medications, times to return to the ED, and follow up care discussed. Pt is stable and ambulatory upon discharge. Pt is a/o x 4; breathing is even and unlabored on room air. No distress noted. Pt leaves ED with all belongings. * Camryn Pelaez MD - 06/15/2024 11:34 AM EST EMERGENCY DEPARTMENT ENCOUNTER Pt Name: Hussein Alston Birthdate 1985 Date of evaluation: 06/15/2024 ED Provider: Bere Pelaez MD CHIEF COMPLAINT Chief Complaint Patient presents with Pelvic Pain Sore Throat Pt tested positive for strep yesterday, has not vomited since yesterday, was started on amoxicillinyesterday HISTORY OF PRESENT ILLNESS (Location/Symptom, Timing/Onset, Context/Setting, [...] Culture. Procedure Abnormality Status --------- ------ Complete Urinalysis[[id number]] Abnormal Final result Please view results for [...] 17, likely secondary to the acute sigmoid diverticulitisfound on CT abdomen pelvis. Urine demonstrating bacteria but negative for nitrites or leukocyte esterase and also negative for blood. Consideration for escalation of care with: Admission/observation admission for IV antibiotics, but the patient declines, stating that she would prefer to try outpatient therapy and will return if hersymptoms change or worsen. . The patient will be discharged The patient is in agreement with this plan. ED Course as of 06/15/24 1334 TueJun 15, 2024 1230 Auto WBC(!): 17.0 [JM] 1256 Bacteria, Urine(!): Few [JM] 1256 RBC, Urine: Negative [JM] ED Course User Index [JM] Camryn Pelaez MD Diagnoses as of 06/15/24 1334 Sigmoid diverticulitis Medications amoxicillin-clavulanate (Augmentin) 875-125 MG per tablet 1 tablet (has no administration in time range) ketorolac (Toradol) injection 15 mg (15 mg IntraVENous Given 06/15/24 1309) REVAL: CRITICAL CARE TIME None CONSULTS: None PROCEDURES: Unless otherwise noted below, none Procedures FINAL IMPRESSION 1. Sigmoid diverticulitis DISPOSITION Discharge 06/15/2024 01:32:20 PM PATIENT REFERRED TO: [facility] Address: [address] [place] [address] Schedule an appointment as soon as possible [...] are any questions or concerns please feel freeto contact the dictating provider for clarification.) Bere Pelaez MD (electronically signed) Emergency Medicine Provider Camryn Pelaez MD 06/15/24 1334 documented in this [facility]12-13-2024 Hospital Discharge instructions* Discharge Instructions* Camryn Pelaez MD - 06/15/2024 1:33 PM EST As discussed, please stop taking your prescribed amoxicillin completely and only take the Augmentinthat you were prescribed today. Please return to the emergency department if your symptoms change or worsen. * Attachments The following attachments cannot be sent through Care Everywhere. * Diverticulitis (Georgian) documented in this [facility]12-13-2024 Physician Emergency department Note* Camryn Pelaez MD - 06/15/2024 11:34 AM EST EMERGENCY DEPARTMENT ENCOUNTER Pt Name: Hussein Alston Birthdate 1985 Date of evaluation: 06/15/2024 ED Provider: Bere Pelaez MD CHIEF COMPLAINT Chief Complaint Patient presents with Pelvic Pain Sore Throat Pt tested positive for strep yesterday, has not vomited since yesterday, was started on amoxicillinyesterday HISTORY OF PRESENT ILLNESS (Location/Symptom, Timing/Onset, Context/Setting, [...] Culture. Procedure Abnormality Status --------- ------ Complete Urinalysis[[id number]] Abnormal Final result Please view results for [...] 17, likely secondary to the acute sigmoid diverticulitisfound on CT abdomen pelvis. Urine demonstrating bacteria but negative for nitrites or leukocyte esterase and also negative for blood. Consideration for escalation of care with: Admission/observation admission for IV antibiotics, but the patient declines, stating that she would prefer to try outpatient therapy and will return if hersymptoms change or worsen. . The patient will be discharged The patient is in agreement with this plan. ED Course as of 06/15/24 1334 TueJun 15, 2024 1230 Auto WBC(!): 17.0 [JM] 1256 Bacteria, Urine(!): Few [JM] 1256 RBC, Urine: Negative [] ED Course User Index [JM] Camryn Pelaez MD Diagnoses as of 06/15/24 1334 Sigmoid diverticulitis Medications amoxicillin-clavulanate (Augmentin) 875-125 MG per tablet 1 tablet (has no administration in time range) ketorolac (Toradol) injection 15 mg (15 mg IntraVENous Given 06/15/24 1309) REVAL: CRITICAL CARE TIME None CONSULTS: None PROCEDURES: Unless otherwise noted below, none Procedures FINAL IMPRESSION 1. Sigmoid diverticulitis DISPOSITION Discharge 06/15/2024 01:32:20 PM PATIENT REFERRED TO: [facility] Address: [address], [place] [address] Schedule an appointment as soon as possible [...] are any questions or concerns please feel freeto contact the dictating provider for clarification.) Bere Pelaez MD (electronically signed) Emergency Medicine Provider Camryn Pelaez MD 06/15/24 1334 [facility]05-15-2024 NoteHNO ID: [id number] Author: ARNALDO VELAZQUEZ APRN.KINDER TEACHER Service: ? Author Type: Nurse Practitioner Type: [...] of care. This note was generated using Kingdee software. It may contain errors in wording, punctuation, or spelling. Arnaldo Velazquez APRN.[facility]05-15-2024 History of Present illness Narrative* Arnaldo Velazquez APRN.KINDER TEACHER - 11/16/2023 7:17 AM EDT Images from the original note were not [...] supportive therapies. Patient will follow up with primarycare provider as needed. Patient was instructed to immediately proceed to emergency room for any new, worsening, or symptoms lasting longer than anticipated. The patient's clinical presentation is otherwise unremarkable at this time. Based on exam and clinical finding, the patient is stable for discharge. Plan of care was discussed with patient. Patient verbalizes understanding and agrees to planof care. This note was generated using Kingdee software. It may contain errors in wording, punctuation, or spelling. Arnaldo Velazquez APRN.ASHLY documented in this [facility]04-[facility]-2024 History of Present illness Narrative* Corinne Lyons APRN.CNP - 10/07/2023 9:48 AM EDT This note was created using [employer]. Subjective Hussein Lee is a 38 year [...] OFLOXACIN 0.3 % EAR DROPS Corinne Lyons APRN.CNP Medical Decision Making: Problems: Moderate: New problem with uncertain prognosis Data: Unique source(s) for external note(s) reviewed: 1 Risk: Moderate: Drug management Medical Decision Making Level: 4 - Moderate [facility] Instructions* Patient Instructions* Tania Quach PA - 08/17/2023 4:12 PM [...] or fungal infections. Be sure to finish entirecourse of prescribed antibiotics to avoid complications. ACTIVITY: [...] Dark urine. Chest pain. documented in [facility] History of Present illness Narrative* Tania Quach PA - 08/17/2023 4:05 PM EST This note was created using NoteWriter. Subjective Hussein Lee is a 38 year [...] Wt 91.2 kg (201 lb) LMP 03/04/2020 [id number]% Physical Exam Vitals and nursing note reviewed. [...] ER evaluation. MARCELLO Polo documented [facility]23 Miscellaneous Notes* Telephone Encounter - Alex Sullivan APRN.CNP - 08/24/2022 6:42 PM EST sent * Telephone Encounter - Natividad Ruano LPN - 08/24/2022 6:38 PM EST Patient calling to state that medication you ordered for her stewart is out of stock at her pharmacy and [facility] to [facility]please review and advise.Natividad Ruano LPN documented in this encounter[facility]23 Miscellaneous Notes* Addendum Note - Alex Sullivan APRN.CNP - 08/24/2022 6:41 PM ESTAddended by: ALEX SULLIVAN on: 08/24/2022 06:41 PM Modules accepted: Orders documented in this encounterSal[facility]21-2023 Instructions* Patient Instructions* Alex Sullivan APRN.CNP - 08/24/2022 4:25 PM EST CONJUNCTIVITIS GENERAL INFORMATION: Conjunctivitis is also known as pink eye. It is an irritation of the underside of the eyelid and the white part of the eye. Conjunctivitis can be caused by infection, chemical irritation, or allergy.If infectious, it is very contagious. INSTRUCTIONS: The doctor has prescribed antibiotic drops or ointment. Use them as prescribed. Do not touch the dropper to the eye. Throw out the medication after completing treatment. If the doctor only prescribedthe medication to be placed in one eye, [...] you may have contaminated before the infection wasdiagnosed, and any eye make-up older than one [...] 100.5 F (38 C). documented in this encounterSal[facility]23 History of Present illness Narrative* Alex Sullivan APRN.CNP - 08/24/2022 4:24 PM EST Subjective HPI HPI Hussein Lee is a [...] DROPS Alex Sullivan APRN.CNP documented in this encounterSal[facility]08[facility]23-2022 Miscellaneous Notes* Telephone Encounter - Perla Velásquez - 02/23/2022 12:59 PM EDT Patient given results and verbalized understanding of instructions given. Perla Velásquez * Telephone Encounter - Hayde Bazan APRN.CNP - 02/23/2022 12:07 PM EDT Positive for covid follow CDC guidelines. 5 days of quarantine from start of symptoms then 5 days of masking. If symptoms worsen follow up Thank you documented in [facility] encounter[facility] [place] [facility]* Diagnosis Bacterial conjunctivitis- Primary Other conjunctivitis documented in this encounter [facility] [place] [facility]* Diagnosis Sore throat- Primary Acute pharyngitis URI, acute Acute upper respiratory infections of unspecified site Acute otitis media, right Unspecified otitis media documented in this encounter [facility] [place] [facility]* Diagnosis Paronychia of finger, right- Primary [facility] encounter [facility]* Diagnosis Acute otitis externa of both ears, unspecified type- Primary [facility] [place] [facility]* Diagnosis Sigmoid diverticulitis- Primary Diverticulitis of colon (without mention of hemorrhage) documented in this encounter [facility] note* Diagnosis Acute cough- Primary URI, acute Acute upper respiratory infections of unspecified site Acute cough documented in this encounter [facility] [place] [facility]* Diagnosis Acute cough documented in this encounter [facility] noteNo assessment information availableWBarney Children's Medical Center Work Phone: Hospital Discharge instructionsAdditional Instructions Thank you for trusting us with your care today! Your x-ray was negative for a bony injury such as a broken bone, fracture or dislocation. You are suffering from a bone contusion or bruise. This will require rest, ice, compression and elevation. Please take Tylenol (2 pills, 650 mg), ibuprofen (2 pills, 400 mg) every 6 hours as needed for pain and fever control. Please return to the emergency department if your symptoms change or worsen. Please follow with your primary care physician for further outpatient evaluation and management.[facility] Work Phone: Reason for referral (narrative)No reason for referral information availableWBarney Children's Medical Center Work Phone: Summary Purpose Family History No Family History Records FoundNo Family History Records FoundNo Family History Records FoundNo Family History Records Found Advance Directives No Advanced Directives Records Found Advance Directive Response Recorded Date/ Time Do you have a Healthcare Power of Associate Account Executive? No February 05, 2025 8:13pm Advance Directives No April 19, 2014 9:10am Health Concerns Infection Onset Date Last Indicated Resolved Time COVID-19 Rule-Out 02/22/2022 02/22/2022 02/23/2022 11:59 AM EDT COVID-19 Confirmed 02/22/2022 02/22/2022 Chief Complaint and Reason for Visit Chief Complaint Admit Date L FOOT INJURY February 05, 2025 7:4 5pm Additional Source Comments INFORMATION SOURCE (unrecogn ized section and content) DATE CREATED AUTHOR 12/27/2017 [facility] DATE CREATED AUTHOR AUTHOR'S ORGANIZ ATION 06/19/2024 [facility] DATE CREATED AUTHOR AUTHOR'S ORGANIZ ATION 11/07/2024 [facility] DATE CREATED AUTHOR AUTHOR'S ORGANIZ ATION 02/12/2025 [facility] Source Comments (unrecognize d section and content) In the event this informatio n is protected by the Federal Confidentiality of Alcohol and Drug Abuse Patient Records regulations: The Federal rules restrict any use of the information to criminally investigate or prosecute any alcohol or drug abuse patient.[facility] CenterIn the event this information is protected by the Federal Confidentiality of Alcohol and Drug Abuse Patient Records regulations: The Federal rules restrict any use of the information to criminally investigate or prosecute any alcohol or drug abuse patient.[facility] CenterIn the event this information is protected by the Federal Confidentiality of Alcohol and Drug Abuse Patient Records regulations: The Federal rules restrict any use of the information to criminally investigate or prosecute any alcohol or drug abuse patient.[facility] CenterIn the event this information is protected by the Federal Confidentiality of Alcohol and Drug Abuse Patient Records regulations: The Federal rules restrict any use of the information to criminally investigate or prosecute any alcohol or drug abuse patient.[facility] CenterIn the event this information is protected by the Federal Confidentiality of Alcohol and Drug Abuse Patient Records regulations: The Federal rules restrict any use of the information to criminally investigate or prosecute any alcohol or drug abuse patient.[facility] CenterIn the event this information is protected by the Federal Confidentiality of Alcohol and Drug Abuse Patient Records regulations: The Federal rules restrict any use of the information to criminally investigate or prosecute any alcohol or drug abuse patient.[facility] CenterIn the event this information is protected by the Federal Confidentiality of Alcohol and Drug Abuse Patient Records regulations: The Federal rules restrict any use of the information to criminally investigate or prosecute any alcohol or drug abuse patient.[facility] CenterIn the event this information is protected by the Federal Confidentiality of Alcohol and Drug Abuse Patient Records regulations: The Federal rules restrict any use of the information to criminally investigate or prosecute any alcohol or drug abuse patient.[facility] Reason for Visit (unrecogniz ed section and [...] (Given - Provid er: Subha Shoemaker RN) Care Teams (unrecognized sec tion and content) Team Status: Active Member Role/Relationship Status Dates Dr. Kimi Wilson MD Primary Care Provider Active Team Status: Inactive Member Role/Relationship Status Dates Dr. Kimi Wilson MD Primary Care Provider Active Start: February 05, 2025 End: February 05, 2025 Dr. Buddy Diop , DO Emergency Provider Active Start: February 05, 2025 End: February 05, 2025 Goals (unrecognized section and content) Goals may be documented in a n alternate section FOR RECORDS PERTAINING TO PATIENTS WHO ARE [...] BE BASED ON THE PRIMARY CLINICAL RECORDS. [facility] [employer] [facility]. provides no warranty or guarantee of the accuracy or completeness of information in this document.
[2025-03-17 11:37] VITALS: BP 131/66; PULSE 64; RESP 18; O2SAT 97
[2025-03-17 11:48] VITALS: BP 124/66; PULSE 76; RESP 16; TEMP 37.2; O2SAT 99
== END 2025-03-17 11:49 | disposition home or self-care (01) ==
PROVIDERS: Emergency Provider Emergency Medicine; Visit Provider Emergency Medicine
DX: S92.224A Nondisplaced fracture of lateral cuneiform of right foot, initial encounter for closed fracture (principal); S93.401A Sprain of unspecified ligament of right ankle, initial encounter; S91.104A Unspecified open wound of right lesser toe(s) without damage to nail, initial encounter; Z87.891 Personal history of nicotine dependence; Y92.481 Parking lot as the place of occurrence of the external cause; X58.XXXA Exposure to other specified factors, initial encounter
CPT/HCPCS: 73610; 73630; 99284

== ENCOUNTER → 2025-05-03 | Outpatient (CLI) | payer MEDICAID, SELFPAY ==
[2025-05-06 20:08] LABS: Chlamydia By Nucleic Acid AMP Negative (Negative); Gonococcus By Nucleic Acid AMP Negative (Negative)
[2025-05-08 21:08] LABS: HPV APTIMA, High Risk Positive (Negative); HPV Genotype 16, Aptima Negative (Negative); HPV Genotype 18,45 Aptima Negative (Negative)
== END | disposition home or self-care (01) ==
PROVIDERS: Visit Provider Nurse Practitioner Family
DX: N92.6 Irregular menstruation, unspecified (principal); Z12.4 Encounter for screening for malignant neoplasm of cervix; Z20.2 Contact with and (suspected) exposure to infections with a predominantly sexual mode of transmission
CPT/HCPCS: 36415; 84439; 84443; 87491; 87591; 87624; 88175; G0145

== ENCOUNTER → 2025-05-23 | Outpatient (CLI) | payer MEDICAID, SELFPAY ==
--- NOTE | 2025-05-23 16:04 | US_ITS ---
PROCEDURE: PELVIC W/ TRANSVAGINAL REASON FOR EXAM: IRREGULAR PERIODS TECHNIQUE: Procedure Code: [id number] Modality: US Procedure: PELVIC W/ TRANSVAGINAL COMPARISON: None FINDINGS: LMP: May 07, 2025. Measurements: Uterus: 7.7 cm x 3.9 cm x 3.9 cm with a volume of 61.4 mL Endometrial Thickness: 7 mm. It is hyperechoic. Right Ovary: 3.3 cm x 1.9 cm x 1.4 cm with a volume of 4 0.3 mL. Left Ovary: 2.6 cm x 1.3 cm x 1 cm with a volume of 2.0 mL. TRANSABDOMINAL: Uterus: Heterogeneous echotexture of the myometrium suggestive of fibroid change solid low no focal fibroid is seen. Endometrium: Unremarkable. Right ovary: Normal size and echotexture. Left ovary: Normal size and echotexture. Other: No large pelvic mass identified. Transvaginal sonography was performed to better visualize the endometrium. TRANSVAGINAL: Uterus: Retroverted. Heterogeneous echotexture in keeping with fibroid change although no focal fibroid is seen. Endometrium: Normal echotexture. Right ovary: Normal size and echotexture. Left ovary: Normal size and echotexture. Other adnexal findings: None. Cul-de-sac: No free intraperitoneal fluid identified. Tenderness: No tenderness US/Pelvic w/ Transvaginal IMPRESSION: Heterogeneous echotexture of the myometrium suggestive of fibroid change. Reading Location: [id number]
== END | disposition home or self-care (01) ==
LOC: OPUS 15:59 → US 16:03
PROVIDERS: Referring Provider Nurse Practitioner Family; Visit Provider Nurse Practitioner Family
DX: N92.6 Irregular menstruation, unspecified (principal)
CPT/HCPCS: 76830; 76856